=== PATIENT | female | born 1955 | race Caucasian/White ===

== ENCOUNTER 2021-11-09 11:01 | Outpatient (CLI) | payer OTHER, SELFPAY ==
--- NOTE | 2021-11-09 11:30 | CRLHL7_ITS ---
For Patients: As a result of the Century Cures Act, medical imaging exams and procedure reports are released immediately into your electronic medical record. You may view this report before your referring provider. If you have questions, please contact your health care provider. BILATERAL SCREENING MAMMOGRAM WITH COMPUTER-AIDED DETECTION AND TOMOSYNTHESIS CLINICAL HISTORY: Screening mammogram. TECHNIQUE: BILATERAL screening mammogram with tomosynthesis. Computer-aided detection was utilized. COMPARISON FILM: Mammograms 10/26/2020, 10/01/2019 and 07/22/2018. BREAST COMPOSITION: The breasts are heterogeneously dense, which may obscure small masses. FINDINGS: RIGHT breast: In the anterior RIGHT breast, there is a focal asymmetry at the 6-7 o???clock position approximately 1.5 cm from the nipple. No suspicious microcalcifications. No nipple retraction or skin thickening. LEFT breast: No mass, suspicious microcalcifications, architectural distortion or other evidence of malignancy. IMPRESSION: Focal asymmetry in the inferior retroareolar RIGHT breast at the 6-7 o???clock position approximately 1.5 cm from the nipple. Recommend ultrasound for further evaluation. ASSESSMENT: BI-RADS Category 0: Incomplete: Need Additional Imaging Evaluation and/or Prior Mammograms for Comparison [facility] will contact the patient for follow-up. A lay language report of this examination will be provided to the patient. Rahul Coker M.D. Diagnostic/Musculoskeletal Radiologist [email or web address] PT/Dictated by: Rahul Coker MD @ 11/10/2021 10:33:00 AM (Electronically Signed)
== END 2021-11-09 11:02 | disposition home or self-care (01) ==
PROVIDERS: PCP Internal Medicine; Visit Provider Internal Medicine
DX: Z12.31 Encounter for screening mammogram for malignant neoplasm of breast (principal); R92.8 Other abnormal and inconclusive findings on diagnostic imaging of breast; R92.2 Inconclusive mammogram
CPT/HCPCS: 77063; 77067

== ENCOUNTER 2021-11-15 08:58 | Outpatient (CLI) | payer OTHER, SELFPAY ==
--- NOTE | 2021-11-15 09:15 | CRLHL7_ITS ---
For Patients: As a result of the Century Cures Act, medical imaging exams and procedure reports are released immediately into your electronic medical record. You may view this report before your referring provider. If you have questions, please contact your health care provider. RIGHT BREAST ULTRASOUND, 11/15/2021 CLINICAL HISTORY: Right breast mass/asymmetry. COMPARISON: Mammogram exams 10/26/2020, 11/09/2021, 10/01/2019, 07/22/2018 and 04/06/2017. TECHNIQUE: Real-time ultrasound imaging of RIGHT breast with imaging documentation. FINDINGS: Targeted sonogram to the area of concern performed adjacent to the RIGHT nipple. Normal fibroglandular tissue is present with mild incidental multi duct ectasia. No suspicious findings. IMPRESSION: Normal breast tissue adjacent to the RIGHT nipple. No evidence of malignancy. RECOMMENDATIONS: Annual BILATERAL screening mammography. Results and recommendations were discussed with the patient at the time of the exam. BI-RADS: 2. Benign findings. Dictated by Brian Robert MD @ 11/15/2021 9:56:04 AM JR/Dictated by: Brian Robert MD @ 11/15/2021 9:56:00 AM (Electronically Signed)
== END 2021-11-15 08:59 | disposition home or self-care (01) ==
LOC: US 08:58
PROVIDERS: PCP Internal Medicine; Visit Provider Internal Medicine
DX: N63.10 Unspecified lump in the right breast, unspecified quadrant (principal); R92.8 Other abnormal and inconclusive findings on diagnostic imaging of breast
CPT/HCPCS: 76642

== ENCOUNTER 2022-02-21 14:19 | Outpatient (CLI) | payer OTHER, SELFPAY ==
[2022-02-21 17:33] LABS: Cholesterol* 196 mg/dL (90-199); Triglycerides* 129 mg/dL (40-149)
[2022-02-21 17:34] LABS: HDL Cholesterol* 68 mg/dL (>=50); LDL Cholesterol Calculated 102 mg/dL (<100)
== END 2022-02-21 14:20 | disposition home or self-care (01) ==
PROVIDERS: PCP Internal Medicine; Visit Provider Internal Medicine
DX: E03.8 Other specified hypothyroidism (principal); E78.5 Hyperlipidemia, unspecified; R05.9 Cough, unspecified
CPT/HCPCS: 80061; 84443

== ENCOUNTER 2022-06-21 12:51 | Outpatient (CLI) | payer MEDICARE, BC, SELFPAY ==
--- NOTE | 2022-06-21 13:00 | CRLHL7_ITS ---
For Patients: As a result of the Cures Act, medical imaging exams and procedure reports are released immediately into your electronic medical record. You may view this report before your referring provider. If you have questions, please contact your health care provider. EXAMINATION: MRA HEAD DATE: 06/21/2022. HISTORY: Patient with headaches and a family history of brain aneurysms. TECHNIQUE: 3D TOF MRA of the head was performed. COMPARISON: None. FINDINGS: The intracranial segments of the right internal carotid artery are normal. The anterior communicating artery is seen. The visualized portions of the right middle and anterior cerebral arteries are normal. The intracranial segments of the left internal carotid artery are normal. The visualized portions of the left middle and anterior cerebral arteries are normal. The right vertebral artery is dominant. The visualized intracranial portions of the vertebral arteries are normal. The basilar artery is normal. The right posterior cerebral artery is normal. The left posterior cerebral artery is normal. IMPRESSION: Normal MRA of the head without intracranial aneurysms. Ellis Mcdermott M.D. Neurointerventionalist [facility] Pager: Office/Appointments: Answering Service: [facility]: [email or web address] Dictated by: Ellis Mcdermott MD @ 06/21/2022 15:06:28 (Electronically Signed)
--- NOTE | 2022-06-21 14:00 | CRLHL7_ITS ---
For Patients: As a result of the Century Cures Act, medical imaging exams and procedure reports are released immediately into your electronic medical record. You may view this report before your referring provider. If you have questions, please contact your health care provider. DXA BONE MINERAL DENSITY STUDY Reason for exam: Asymptomatic age-related postmenopausal state. Current height (in): 63. Weight (lb): 125. Menopause age: 47. Ethnicity: White. 1. Have you had a previous hip or vertebral fracture? No. 2. Have you had any fractures during your adult life which did not result from significant trauma (e.g., auto accident)? No. 3. Did either of your parents have a hip fracture? No. 4. Do you smoke? No. 5. Have you ever taken Glucocorticoids? No. 6. Do you have rheumatoid arthritis? No. 7. Do you have secondary osteoporosis? No. 8. Do you drink 3 or more alcoholic drinks per day? No. 9. Are you being treated for osteoporosis? No. 10. Have you ever taken any of the following medications: Actonel, Evista, Fosamax, Miacalcin, Reclast, Boniva, Forteo, HRT (i.e., estrogen/hormone therapy), Protelos, Prolia, Vitamin D, Calcium, other ??? please specify. ANSWER: No. 11. Do you have any of the following medical conditions: Anorexia or bulimia, asthma or emphysema, end stage renal disease, hyperparathyroidism, any seizure disorders, cancer, inflammatory bowel diseases, hysterectomy, other ??? please specify. ANSWER: Yes, hysterectomy. 12. What was your maximum height (inches)? 63. 13. Do you perform weight bearing exercise regularly? Yes. 14. Do you regularly consume dairy products? No. 15. Do you drink caffeinated beverages? Yes. If female: 16. At what age did your period start? 17. 17. Are you premenopausal? Yes. 18. How many full-term pregnancies have you had? 2. 19. Have you ever missed your period for more than 6 months in a row (not including or menopause)? No. TECHNIQUE: Bone mineral density study was performed using the [employer]. FINDINGS: The results of the study expressed as bone mineral density (BMD) are as follows: Lumbar spine L1 to L4: BMD: 0.766 g/cm2. T-score: -2.6. Z-score: -0.8 Neck Left: BMD: 0.589 g/cm2. T-score: -2.3. Z-score: -0.8 Right: BMD: 0.640 g/cm2. T-score: -1.9. Z-score: -0.4 Total Left: BMD: 0.760 g/cm2. T-score: -1.5. Z-score: -0.3 Right: BMD: 0.786 g/cm2. T-score: -1.3. Z-score: 0.0 IMPRESSION: Osteoporosis. Brian Robert M.D. Diagnostic Radiologist [email or web address] LENA/steve wilson/Dictated by: Brian Robert MD @ 06/22/2022 1:47:00 PM (Electronically Signed)
== END 2022-06-21 12:52 | disposition home or self-care (01) ==
PROVIDERS: PCP Internal Medicine; Visit Provider Internal Medicine
DX: R51.9 Headache, unspecified (principal); Z82.49 Family history of ischemic heart disease and other diseases of the circulatory system; M81.0 Age-related osteoporosis without current pathological fracture; Z78.0 Asymptomatic menopausal state
CPT/HCPCS: 70544; 77080

== ENCOUNTER 2022-07-04 13:33 | Outpatient (CLI) | payer MEDICARE, BC, SELFPAY ==
--- NOTE | 2022-07-04 13:45 | MR_ITS ---
[address] [address] Phone:?[phone] Fax:?[phone] Referring Physician Information: Emperatriz Vera [address] [facility] [address] Phone:?[phone] Fax:?[phone] Patient:Taz Marlow D.O.B:?1955 Sex:?Female Phone:?[phone] [facility] MRN:?[id number] Exam Date:?07/04/2022 ? EXAM: MRI of the LEFT KNEE, without contrast CLINICAL HISTORY: Left knee pain. Evaluate for meniscal tear. COMPARISONS: Plain radiographs 06/20/2022. TECHNICAL: MR sequences of the left knee: sagittals: PD, PDFS coronals: PD, STIR axials: PD, T2 FS CONTRAST: None SEDATION: None FINDINGS: Bones: No fracture, bone marrow contusion, or other suspicious bone marrow signal abnormality. Patellofemoral joint: Cartilage: There is a 1.5 cm in craniocaudad dimension by 1.0 cm in transverse dimension area of grade III and IV chondromalacia over the median patellar ridge and medial patellar facet with mild associated degenerative subchondral cystic changes. Retinacula: The medial and lateral retinacula are intact. Fat pads: The infrapatellar, quadriceps, and prefemoral fat pads are unremarkable. Knee joint: Effusion: Trace left knee joint effusion. Popliteal cyst: Moderately sized perforated popliteal cyst. Intra-articular bodies: None. Posteromedial corner: The semimembranosus and pes anserine tendons are intact. Medial compartment: Medial meniscus: Full-thickness radial tear through the posterior root of the medial meniscus best seen on sagittal images 13 and 14 with 3 mm of medial meniscal extrusion. Cartilage: 1.0 x 1.0 cm area of grade II chondromalacia over the lateral weightbearing portion of the medial femoral condyle. Lateral compartment: Lateral meniscus: Slight free edge fraying of the body of the lateral meniscus. No unstable lateral meniscal tear is seen. Cartilage: Intact. Ligaments: Anterior cruciate ligament: Intact. Posterior cruciate ligament: Intact. Medial collateral ligament: Intact. Posterior oblique ligament: Intact. Fibular collateral ligament: Intact. Posterolateral corner: The distal biceps femoris tendon, iliotibial band, popliteus tendon, popliteus muscle, popliteofibular ligament, and arcuate ligament are intact. Extensor mechanism: Patellar tendon: Intact. Quadriceps tendon: Intact. IMPRESSION: 1. Full-thickness radial tear through the posterior root of the medial meniscus. 3 mm of medial meniscal extrusion. 2. 1.5 x 1.0 cm area of grade III and IV chondromalacia over the median patellar ridge and medial patellar facet with mild associated degenerative subchondral cystic changes. 3. 1.0 x 1.0 cm area of grade II chondromalacia over the lateral weightbearing portion of the medial femoral condyle. 4. Slight free edge fraying of the body of the lateral meniscus. No unstable lateral meniscal tear. 5. Trace left knee joint effusion. 6. Moderately sized perforated popliteal cyst. 7. No ligamentous injury of the left knee. RCB Electronically signed on 07/05/2022 6:34:00 AM by Ashvin Marrufo M.D.
== END 2022-07-04 13:34 | disposition home or self-care (01) ==
LOC: MRI 13:34
PROVIDERS: PCP Internal Medicine; Visit Provider Physician Assistant
DX: M25.562 Pain in left knee (principal); S83.242A Other tear of medial meniscus, current injury, left knee, initial encounter; M94.262 Chondromalacia, left knee; M25.462 Effusion, left knee; M71.22 Synovial cyst of popliteal space [Baker], left knee; M22.42 Chondromalacia patellae, left knee
CPT/HCPCS: 73721

== ENCOUNTER 2022-08-30 06:04 | Day surgery (SDC) | payer MEDICARE, BC, SELFPAY ==
[2022-08-30] VITALS (13 sets, daily range): BP systolic 103–153; BP diastolic 62–93; PULSE 49–66; RESP 12–16; TEMP 35.7–36.6; O2SAT 96–100; BMI 21.7
[2022-08-30] MEDS: LACTATED RINGERS 1000 ML 1,000 ML 100 ML IV (06:43)
[2022-08-30] MEDS: SODIUM CHLORIDE 0.9 % (FLUSH) 10 ML SYRINGE IVF (06:43)
[2022-08-30] MEDS: ROPIVACAINE 0.5% 30 ML 150 MG INJECTION (08:14)
--- NOTE | 2022-08-30 08:23 | PM.ORPRC ---
Procedure Note Date of procedure: 08/30/22 Procedure: PREOPERATIVE DIAGNOSIS: 1. Left knee medial meniscus posterior root tear POSTOPERATIVE DIAGNOSIS: 1. Left knee medial meniscus posterior root tear 2. 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 Left knee arthroscopic partial medial meniscectomy 2. Left knee arthroscopic chondroplasty medial and patellofemoral compartments SURGEON: Gunnar Walter M.D. WOODWORKING BELT SANDER: Kenroy GAITAN. Of note, an assistant distribution manager was critical for this case to aid in patient positioning, knee manipulation, instrument exchange, and closure. ANESTHESIA: Spinal EBL: 5ml TOURNIQUET: 30 min at 300 torr COMPLICATIONS: None evident INDICATIONS: The patient is a pleasant 67-year-old female who has experienced left knee pain particularly with any twisting or turning. Physical exam was concerning for medial meniscus tear, this was confirmed on MRI. Additionally, attempted nonoperative management has been tried, and failed. Thus, surgery was recommended. FINDINGS: Posterior root medial meniscus tear. Complex in pattern. Not a straightforward/radial tear. In addition, a complex tear did extend into the posterior root in even approaching the midbody. In this juncture had some horizontal component as well as poor tissue quality. Finally, grade 3 chondromalacia is seen weight-bearing portion medial femoral condyle broadly as well as the patella median ridge and lateral facet broadly. To lesser degree grade 2 trochlear groove. Healthy articular cartilage lateral compartment. Intact lateral meniscus. ACL and PCL intact. No loose bodies evident. DESCRIPTION OF PROCEDURE: After a thorough discussion of risks, benefits, and alternatives, the patient was brought to the operating room and placed upon the operating table. Induction of anesthesia was undertaken as previously noted. 1 g IV Ancef was administered within 1 hr of incision preoperatively. Appropriate time-out was performed identifying proper patient, site, and procedure. The left lower extremity was prepped and draped in the appropriate sterile fashion using ChloraPrep. The limb was exsanguinated and tourniquet inflated. Anterolateral and anteromedial portals were established with an 11 blade, and a diagnostic arthroscopy was performed. This identified the findings as noted above. Following the diagnostic arthroscopy, a partial medial menisectomy was performed with the combination of basket forceps and a motorized shaver. In addition, the shaver was utilized for chondroplasty of loose chondral flaps medial femoral condyle and patella. Following this, the meniscus was re-probed and found to be stable. Approximately 15-20 % of the overall meniscus required resection. At this stage, the shaver was reinserted into the suprapatellar pouch and all remaining meniscal debris was evacuated. Instruments were removed, excess fluid was drained, and closure performed with 4-0 Monocryl with Steri-Strips. Dressings were applied, the tourniquet deflated, and the patient was awoken from anesthesia and transferred to the PACU in stable condition. PLAN: 1. Weightbear as tolerated operative extremity. Crutch / walker ambulation assistance PRN. Straight leg raise to be initiated starting tomorrow by the patient. 2. Ice, acetominophen and/or ibuprofen, and oxycodone for pain as needed. 3. Knee range of motion and quad sets/straight leg raise regularly 4. Follow up with PA visit in 7-10 days. for a wound check. Initiate physical therapy at that time
--- NOTE | 2022-08-30 08:26 | W.ANESCHARGE ---
Anesthesia Charges Start Date/Time Anesthesia Start Date: 08/30/22 Anesthesia Start Time: 07:30 Stop Date/Time Anesthesia Stop Date: 08/30/22 Anesthesia Stop Time: 08:26
== END 2022-08-30 10:26 | disposition home or self-care (01) ==
LOC: OR 06:05
PROVIDERS: PCP Internal Medicine; Visit Provider Orthopaedic Surgery Sports Medicine
PROC: (CPT 29882; principal; 2022-08-30 07:30)
DX: M23.222 Derangement of posterior horn of medial meniscus due to old tear or injury, left knee (principal); M94.262 Chondromalacia, left knee
CPT/HCPCS: 29881; 01400; J1100; J2250; J2405; J2704; J2795; J3010; J7120; L1833

== ENCOUNTER 2022-10-16 09:30 | Outpatient (RCR) | payer MEDICARE, BC, SELFPAY ==
--- NOTE | 2022-09-01 10:08 | PT.OPEX ---
PT [facility] Outpatient Eval PT [facility] Outpatient Eval Start: 09/01/22 07:42 Freq: Status: Active Protocol: Document 09/01/22 07:42 YOU (Rec: 09/01/22 10:08 KLV [id number]) E-signed By Tresa Damon, PT Physical Therapy Outpatient Evaluation Insurance Information Recert Due Date 11/26/22 Insurance Name Medicare B,Blue Cross/[employer] Shield Medical Diagnosis S/P left knee scope: medial meniscectomy DOS: 08/30/22 Treating Diagnosis Left knee pain, limited knee ROM, gross LE weakness, antalgic gait Referring MD Walter Subjective Subjective Cydney reports to PT s/p 2 days left knee medial meniscectomy DOS 08/30/22. DOI 06/20/22: twisted on her knee while walking and felt and immediate sharp pain. Unable to bear weight originally. She was pretty limited with walking following which prompted surgery. She is a bit discouraged initially today since she underwent a meniscectomy vs a meniscus repair and feels that it will set her back with return to function since she is a very active person with walking, yoga, caring for 1 and 3 year old granddaughters. She presents with jose daniel bandage around knee and use of B crutches. Initially NWB today d/t fear and pain level at the worst today but manageable. Has been icing. 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 Advised to leave steri strips on until they fall off themselves, she may shower. Gait: use of B crutches, WBAT, slow alberto, good heel to toe, overpronation L LE, slight bowing of L LE Functional Test Performed & Score LEFS: 52/80 Assessment Assessment/Impression Pt presents with signs and symptoms consistent with s/p 2 days left knee medial meniscectomy. DOS: 6/21/23. Anticipated deficits/ impairments in pain, ROM, gait , and strength. 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 Primary Functional Limitations Walking, squatting, bending, lifting Plan of Care Rehabilitation Potential Good Physical Therapy Goals By 4 weeks (09/29/22) Pt will be able to ascend/ descend 1 flight of stairs in order to perform ADLs pain free. Pt will demonstrate full and pain free knee ROM in order to perform all ADLs including don/doffing shoes/socks By 8 weeks (10/27/22) Pt will exhibit 9 pt improvement in LEFS Outcome measure to demonstrate functional improvement and progress towards goals. Pt will tolerate gradual progression back to ADLs with <2/10 pain Patient will transition from crutches to independent gait with normal mechanics. 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 and care for grandchildren Treatment Plan/Direct Interventions Gait Training,Ice/Cold/ Vasopneumatic,Joint Mobilization,Manual Therapy, Neuromuscular Re-ed,Self-Care/ Home Management,Therapeutic Activities,Therapeutic Exercises Frequency/Duration 1x/wk for 6 weeks with additional 4 sessions prn based on progress Patient Will Be Discharged From Therapy Completion of LTG(s), Independent w/HEP, Independently Progressing Evaluation Billing Untimed Code Treatment Minutes 20 Complexity Low Certification Information Initial Certification Date 09/01/22 Ending Certification Date 11/26/22 Provider Signature Shows Agreement With POC & Medical Necessity Physician Signature & Date Requested Please Sign/Date Here Physician Comment/Change : Physician NPI Number #
== END 2022-10-16 11:39 | disposition home or self-care (01) ==
PROVIDERS: PCP Internal Medicine; Visit Provider Orthopaedic Surgery Sports Medicine
DX: S83.242D Other tear of medial meniscus, current injury, left knee, subsequent encounter (principal); Z51.89 Encounter for other specified aftercare
CPT/HCPCS: 97110; 97116; 97161

== ENCOUNTER 2022-11-15 08:53 | Outpatient (CLI) | payer MEDICARE, BC, SELFPAY ==
--- NOTE | 2022-11-15 09:15 | CRLHL7_ITS ---
For Patients: As a result of the Century Cures Act, medical imaging exams and procedure reports are released immediately into your electronic medical record. You may view this report before your referring provider. If you have questions, please contact your health care provider. BILATERAL SCREENING MAMMOGRAM WITH COMPUTER-AIDED DETECTION AND TOMOSYNTHESIS TECHNIQUE: CC and MLO views were obtained. These mammographic images have been obtained using full-field digital technique. These mammographic images were interpreted with the benefit of computer-aided detection. Breast Tomosynthesis was used in this interpretation. COMPARISON FILM: 11/09/21, 10/26/20, 10/01/19. FINDINGS: The breasts are heterogeneously dense, which may obscure small masses IMPRESSION: There is no radiographic evidence for malignancy. ASSESSMENT: BI-RADS Category 1: Negative RECOMMENDATION: Routine screening mammogram in 1 year. A lay language report of this examination will be provided to the patient. Brian Robert M.D. Diagnostic Radiologist [email or web address] JOHN/Dictated by: Brian Robert MD @ 11/15/2022 1:11:00 PM (Electronically Signed)
== END 2022-11-15 08:54 | disposition home or self-care (01) ==
LOC: MAMMO 08:55
PROVIDERS: PCP Internal Medicine; Visit Provider Internal Medicine
DX: Z12.31 Encounter for screening mammogram for malignant neoplasm of breast (principal); R92.2 Inconclusive mammogram
CPT/HCPCS: 77063; 77067

== ENCOUNTER 2023-02-22 07:46 | Outpatient (CLI) | payer MEDICARE, BC, SELFPAY | END 2023-02-22 07:47 | disposition home or self-care (01) | LOC: NFLDREF 02-23 14:44 | PROVIDERS: PCP Internal Medicine; Referring Provider Internal Medicine; Visit Provider Internal Medicine | DX: E78.5 Hyperlipidemia, unspecified (principal); E03.8 Other specified hypothyroidism | CPT/HCPCS: 80061; 84439; 84443 ==

== ENCOUNTER 2023-05-16 07:34 | Outpatient (CLI) | payer MEDICARE, BC, SELFPAY | END 2023-05-16 07:35 | disposition home or self-care (01) | LOC: NFLDREF 05-29 20:21 | PROVIDERS: PCP Internal Medicine; Referring Provider Internal Medicine; Visit Provider Internal Medicine | DX: E78.5 Hyperlipidemia, unspecified (principal) | CPT/HCPCS: 80061 ==

== ENCOUNTER 2023-06-18 10:39 | Outpatient (CLI) | payer MEDICARE, BC, SELFPAY ==
--- NOTE | 2023-06-18 10:45 | US_ITS ---
Patient: ZAID ROBERTS Facility:?[facility] Patient ID:?[id number] Site Patient ID:?[id number] Site :?1955 Study:?US-OB Pelvis TA/TV Pelvic US-06/18/2023 11:36:20 AM Ordering Physician:?Griselda Thomas Final Report: INDICATION: hx of genetic malignant neoplasm. BRCA gene carrier COMPARISON: CT 05/05/2013 TECHNIQUE: 2D bains scale and color Doppler images were acquired of the pelvis using a transabdominal and transvaginal approach. FINDINGS: The uterus is absent. The right ovary measures 1.2 x 0.7 x 0.6 cm in size and the left ovary measures 1.3 x 0.8 x 1.0 cm. The ovaries demonstrate normal arterial and venous blood flow on color Doppler analysis. There are no suspicious fluid collections within the cul-de-sac. IMPRESSION: Normal ovaries without suspicious finding. Dictated by Brian Robert MD @ 06/18/2023 11:42:37 AM Signed by:?Brian Robert MD @06/18/2023 11:42:37 AM (Electronic Signature)
--- OUTSIDE RECORDS SUMMARY | 2023-06-18 10:45 | XMS_ITS | Encounter Summary ---
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 No 05/08/2023 Exercise Vital Sign Answer Date Recorde d On average, how many days pe r week do you engage in moderate to strenuous exercise (like a brisk walk)? 4 days 05/08/2023 On average, how many minutes do you engage in exercise at this level? 40 min 05/08/2023 Hunger Vital Sign Answer Date Recorded Within the past 12 months, y ou worried that your food would run out before you got the money to buy more. Never true 05/08/19 Within the past 12 months, t he food you bought just didn't last and you didn't have money to get more. Never true 05/08/2023 PRAPARE - Transportation Answer Date Re corded In the past 12 months, has l ack of transportation kept you from medical appointments or from getting medications? No 04/13 In the past 12 months, has l ack of transportation kept you from meetings, work, or from getting things needed for daily living? No 05/08/2023 Nutrition Answer Date Recorded Nutrition: EVOO Fat Source Unknown 05/08 On average, how many serving s of fruits and vegetables do you eat per day (serving size is equal to 1 cup or approximately the size of a tennis ball)? 3-5 05/08/2023 Dental Answer Date Recorded Dental: Regular Dentist Yes 05/08/19 Employment Answer Date Recorded Employment status Employed and actively working without restrictions 05/08/2023 Housing Stability Answer Date Recorded What is your living situation today? 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
--- OUTSIDE RECORDS SUMMARY | 2023-06-18 10:45 | XMS_ITS ---
Author Name Unknown Organization [facility] Address [address] [place] [address] Care Team Providers Care Security Systems Integrator Name Role Phone Unavailable Unavailable Unavailable Surgery Details Not on file Complications Check Surgery Details section. Procedure Estimated Blood Loss Check Surgery Details section. Procedure Findings Check Surgery Details section. Procedure Specimens Taken Check Surgery Details section.
--- OUTSIDE RECORDS SUMMARY | 2023-06-18 10:45 | XMS_ITS | Encounter Summary ---
Author Name Unknown Organization [facility] Address [address] [place] [address] Care Team Providers Care Methods And Procedures Analyst Name Role Phone Unavailable Primary Care Provider Unavailabl e Encounter Details Date Type Department Care Team (Latest Contact Info) Description 05/14/2023 2:40 PM CATARACT LENS GENERATOR - 05/14/2023 11:59 PM CATARACT LENS GENERATOR Hospital Encounter Department of Laboratory Medicine and Pathology, [facility], in [place], [place] [address] [place] [address] Chilo Mario M.D. [address] [place] [address] Family History Genetic Disorder; Cancer Breast Family History Discharge Disposition: Home or Self Care Social History Tobacco Use Types Packs/Day Years Used Date Smoking Tobacco: Never Assessed [facility] Utilities Answer Date Recorded In the past 12 months has [facility] [employer], gas, oil, or water [employer] threatened to shut off services in your [...] money to buy more. Never true 05/08/19 24 Within the past 12 months, t he [...] your living situation today? I have a [facility] place to live 05/08/2023 Sex and Gender Information Value Date Recorded Sex Assigned at Female 05/08/2023 12:42 PM CATARACT LENS GENERATOR Gender Identity Female 05/08/2023 12:42 PM CATARACT LENS GENERATOR Sexual Orientation Straight 05/08/2023 12 :42 PM CATARACT LENS GENERATOR documented as of this encounter Miscellaneous Notes * Result Encounter Note - Radha Burgos M.S., [facility] - 06/15/2023 8:15 AM CDT CHIEF COMPLAINT/PURPOSE OF VISIT BRCA2 positive genetic testing results. HISTORY OF PRESENT ILLNESS Cydney Marlow was seen in the Department of Clinical Genomics on 05/11/2023 for genetic counselingand consideration of genetic testing due to a family history of a pathogenic variant in BRCA2. At that consultation, Cydney elected to pursue a CustomNext: Cancer panel with BRCA2 site specific analysis, available from [employer] This custom panel included genes associated with hereditary breast and gynecologic cancer. Genes included: RACHEL, BARD1, BRCA1, BRCA2, BRIP1, CDH1, CHEK2, EPCAM, MLH1, MSH2, MSH6, NF1, PALB2, PMS2, PTEN, RAD51C, RAD51D, STK11, TP53 Results are now available and were disclosed over video visit and also shared via online patient portal message. RESULTS Germline genetic testing included sequence analysis and gross deletion/duplication analysis of 19 genes associated with hereditary cancer. For a full list of genes included in the analysis, please refer to the laboratory report scanned into the patient's chart (Media tab). 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 A pathogenic variant is a harmful change in the gene's spelling, which disrupts its normal function. 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 Of note, this is the same BRCA2 variant previously identified for Cydney's niece. CANCER RISKS Note: the terms male/man and female/woman refer to sex assigned at . These are quoted risks for individuals with a BRCA2 variant who have not taken risk reduction steps, such as taking chemoprevention medications or undergoing risk-reducing surgeries. This informationis based on the current understanding of BRCA2 and may slip box changer time. The average risk to develop breast cancer for a woman living in the [place] is approximately 12-13% overher lifetime; women with a pathogenic variant in BRCA2 have over a 60% lifetime risk to develop a primary breast cancer and an approximately 40-50% risk to develop a second primary if they have previously had a breast cancer diagnosis. The average risk to develop breast cancer for a man living in the [place] is less than 1% over his lifetime; men with a pathogenic variant in BRCA2 have an approximately 1.8-7.1% lifetime risk to develop breast cancer. The average risk to develop ovarian cancer for a woman living in the [place] is approximately 1-2% over her lifetime; women with a pathogenic variant in BRCA2 have an approximately 13-29% lifetime risk todevelop ovarian cancer. The average risk to develop prostate cancer for a man living in the [place] is approximately 14% over his lifetime; men with a pathogenic variant in BRCA2 have an approximately 19-61% lifetime risk to develop prostate cancer. The average risk to develop pancreatic cancer for a man or a woman living in the [place] is approximately 1-2%; men and women with a pathogenic variant in BRCA2 have an approximately 5-10% lifetime risk to develop pancreatic cancer. Individuals with a pathogenic variant in BRCA2 also have an elevated risk for melanoma. The lifetime risk is currently unknown. MEDICAL MANAGEMENT There are medical management guidelines for individuals with a pathogenic variant in BRCA2. Specifically, the guidelines published by the National Comprehensive Cancer Network (NCCN v.3.2023). Cydney will be provided with a copy of these guidelines for reference. These guidelines are subject to slip box changer time. Patients are encouraged to contact our department periodically for updates. Relatives who are at 50% risk of carrying a familial BRCA2 variant should be screened as though they have the variant until proven otherwise by a negative genetic test result. All individuals should receive education regarding signs and symptoms of cancer(s). FEMALE BREAST CANCER RISK MANAGEMENT ??Breast awareness beginning at age 18; ??Clinical breast examination every 6-12 months beginning at age 25; ??Breast imaging: ??Annual breast MRI (or mammogram if MRI is unavailable) for individuals between the ages of 25-29 or individualized based on earliest age of onset in the family ??Annual mammogram (with consideration of tomosynthesis) and breast MRI for individuals between theages of 30-75 ??Management should be considered on an individual basis for individuals over the age of 75 ??For individuals with a BRCA pathogenic/likely pathogenic variant who are treated for breast cancer and have not had a bilateral mastectomy, screening with annual mammogram with consideration of tomosynthesis and breast MRI should continue as described above. ??Discuss option of risk-reducing mastectomy (RRM) ??Chemoprevention options for breast cancer risk reduction should be considered. OVARIAN/UTERINE CANCER RISK MANAGEMENT Risk reducing bilateral salpingo-oophorectomy (BSO) is recommended for women with a pathogenic variant in BRCA2. Because ovarian cancer onset in patients with a pathogenic variant in BRCA2 is an average of 8-10 years later than in patients with a BRCA1 variant, it is reasonable to delay surgery forthose with a BRCA2 variant until age 40-45 years UNLESS the ages at diagnosis of ovarian cancer in the family warrant earlier age for consideration of risk reducing surgery. Hormone replacement therapy (HRT) after risk reducing BSO is generally not contraindicated and should be discussed with premenopausal patients who do not have a personal history of breast cancer, as it can reduce the chances of detrimental bone, cardiovascular, psychosocial, neurologic, and sexual health. Decisions about HRT are deferred to a nut culler or HCP with expertise in menopause management. Patients who are premenopausal and not yet ready for oophorectomy can consider salpingectomy (removal of fallopian tubes) with delayed oophorectomy. Salpingectomy reduces the risk of ovarian cancer in the general population. Clinical trials of interval salpingectomy and delay oophorectomy are ongoing, and surgical choice study participation is encouraged if available. Completion oophorectomy is recommended per gene-specific guidelines. There may be a slightly increased risk of serous uterine cancer in women with BRCA2 pathogenic variants. Further evaluation of the risk is ongoing. Providers should discuss risks and benefits of concurrent hysterectomy at the time of risk reducing BSO. Those who do undergo hysterectomy are candidates for estrogen-only HRT, which is associated with a decreased risk of breast cancer compared with co mbined HRT. Transvaginal ultrasound and serum CA-125 are recommended for surgical planning for patients undergoing risk-reducing BSO or salpingectomy. For those patients who have not elected risk reducing bilateral salpingo-oophorectomy, ovarian cancer screening including transvaginal ultrasound and serum CA-125 may be considered at a clinician's discretion. However, this screening has not been shown to be sufficiently sensitive or specific as to support a positive recommendation by the National Comprehensive Cancer Network. Patients can also consider non-surgical risk reduction for ovarian/fallopian tube/peritoneal cancers. Non-surgical options include consideration of combination estrogen/progestin contraception or levonorgestrel intrauterine device. Consultation with a gynecologic oncologist or nut culler with expe rtise in genetic susceptibility to cancer is recommended to discuss options. If desired, premenopausal women should be referred to fertility specialists for a discussion of fertility considerations. If eggs/embryos are cryopreserved, may be achieved with uterus in place, with or without fallopian tubes or ovaries. MALE BREAST CANCER RISK MANAGEMENT ??Breast self-exam training and education beginning at age 35; ??Clinical breast examination every 12 months, beginning at age 35 ??Consider annual mammogram screening starting at age 50, or 10 years before the earliest known male breast cancer in the family (whichever comes first) PROSTATE CANCER RISK MANAGEMENT ??Prostate cancer screening beginning at age 40 ??Men with a pathogenic variant in BRCA1 between the ages of 30-75 are eligible for a study at the National Institutes of Health, looking at use of MRI for prostate cancer screening:https://clinicalst udies.info.nih.gov/protocoldetails.aspx?id=19-C-0040&&query= PANCREATIC CANCER RISK MANAGEMENT There are currently no standardized screening protocols or screening tools for pancreatic cancer. Investigational options may be considered in select individuals at increased risk for pancreatic cancer. Options such as endoscopic ultrasonography (EUS) and/or MRI/magnetic resonance cholangiopancreatography are available. However, these screening protocols have significant limitations, and the benefits are currently are unknown. Current guidelines from the International Cancer of the Pancreas Screening Consortium (CAPS) state that an individual with a pathogenic variant in BRCA2 and a first-degree blood relative with pancreatic cancer is eligible for consideration of screening. CAPS suggests that surveillance should start between the ages of 45-50 or 10 years earlier than the youngest diagnosis of pancreatic cancer in the family. Similarly, the National Comprehensive Cancer Network (NCCN) states an individual with a BRCA2 pathogenic variant and a first-degree or second-degree relative with pancreatic cancer from the same side of the family as the germline pathogenic BRCA2 variant qualify for pancreatic cancer screening. Based on their family history of pancreatic cancer, Cydney is at an elevated empiric lifetime risk for pancreatic cancer. There are currently no standardized screening protocols or screening tools forpancreatic cancer. Investigational options may be considered in select individuals at increased risk for pancreatic cancer. Options such as endoscopic ultrasonography (EUS) and/or MRI/magnetic resonance cholangiopancreatography are available. However, these screening have significant limitations and the benefits are currently are unknown. Cydney does not meet CAPS nor NCCN criteria for pancreas cancer screening. Cydney should be aware of potential symptoms of pancreatic cancer (bloating, abdominal pain, jaundice) and could consider a consultation in the pancreatic neoplasia clinic for more information on ongoing research on pancreaticcancer screening and available research registries. In the absence of a strong family history, screening is unlikely to be recommended. MELANOMA RISK MANAGEMENT No specific screening guidelines exist for melanoma, but general melanoma risk management is appropriate. According to the French Cancer Society, individuals with a family history of melanoma are encouraged to: (1) have clinical skin examinations performed by a quality control specialist every 6-12 months, (2) perform thorough skin self-examinations once a month, and (3) be vigilant about sun protection (e.g. regularly wear sunscreen and avoid the use of tanning beds). These recommendations are based on published guidelines. These guidelines are subject to change andwe encourage patients to contact our department periodically for updates. Final recommendations should be deferred to the discretion of the managing physician. Other cancer screening recommendations, such as those made by the French Cancer Society, do remain appropriate. HEREDITARY CANCER CLINIC ([facility]) We discussed the option of being seen by a nurse practitioner or physician in the Department of Clinical Genomics' Hereditary Cancer Clinic for medical management of BRCA2 cancer risks. The [facility] is dedicated to providing care and support to patients with hereditary risk of developing certain types of cancers. At the [facility], a variety of services are offered, including an annual visit addressing screening recommendations for the patient's specific needs and referral to specialties. Patients can be seen in person in [place] or via video visit. Similarly, screening/surveillance can take place in [place] or can be completed in a local health system. To be seen this clinic, patients can call [facility] at [phone] to discuss a referral. REPRODUCTIVE RISKS Preconception genetic counseling is an option for individuals with a pathogenic variant in BRCA2 who are of reproductive age. The BRCA2 gene is associated with an autosomal recessive condition called Fanconi anemia. In order for someone to be affected by an autosomal recessive condition, they must have pathogenic variants in both copies of the gene (one inherited from both parents). Cydney was identified to have a pathogenic variant in one of their BRCA2 gene copies; therefore, Cydney is not at risk to be affected by BRCA2-associated Fanconi anemia and is considered a carrier for the condition. Individuals with a pathogenic variant in BRCA2 are at risk of having a child with Fanconi anemia if the individual's reproductive partner also has a pathogenic variant in this gene. Fanconi anemia is characterized by bone marrow failure and anomalies including short stature, abnormal skin pigmentation, abnormal thumbs, malformations of the skeletal and central nervous systems, and developmental delay. Risks for leukemia and early-onset solid tumors are significantly elevated. Carrier testing can be considered for the reproductive partner of an individual with a pathogenic variant in BRCA2 to determine the likelihood for the couple to have a future child with Fanconi Anemia. Preimplantation genetic diagnosis in the setting of in vitro fertilization is an option for coupleswho would like to avoid passing on a pathogenic variant in BRCA2 to future children. Interested couples should request a referral to an in vitro fertilization center that performs preimplantation genetic diagnosis for a thorough discussion of the risks, benefits, and limitations of this option. HEREDITARY CANCER CLINIC ([facility]) We discussed the option of being seen by a nurse practitioner or physician in the Department of Clinical Genomics' Hereditary Cancer Clinic for medical management of BRCA2 cancer risks. The [facility] is dedicated to providing care and support to patients with hereditary risk of developing certain types of cancers. At the [facility], a variety of services are offered, including an annual visit addressing screening recommendations for the patient's specific needs and referral to specialties. Patients can be seen in person in [place] or via video visit. Similarly, screening/surveillance can take place in [place] or can be completed in a local health system. To be seen this clinic, patients can call [facility] at [phone] to discuss a referral. REPRODUCTIVE RISKS Preconception genetic counseling is an option for individuals with a pathogenic variant in BRCA2 who are of reproductive age. The BRCA2 gene is associated with an autosomal recessive condition called Fanconi anemia. In order for someone to be affected by an autosomal recessive condition, they must have pathogenic variants in both copies of the gene (one inherited from both parents). Cydney was identified to have a pathogenic variant in one of their BRCA2 gene copies; therefore, Cydney is not at risk to be affected by BRCA2-associated Fanconi anemia and is considered a carrier for the condition. Individuals with a pathogenic variant in BRCA2 are at risk of having a child with Fanconi anemia if the individual's reproductive partner also has a pathogenic variant in this gene. Fanconi anemia is characterized by bone marrow failure and anomalies including short stature, abnormal skin pigmentation, abnormal thumbs, malformations of the skeletal and central nervous systems, and developmental delay. Risks for leukemia and early-onset solid tumors are significantly elevated. Carrier testing can be considered for the reproductive partner of an individual with a pathogenic variant in BRCA2 to determine the likelihood for the couple to have a future child with Fanconi Anemia. Preimplantation genetic diagnosis in the setting of in vitro fertilization is an option for coupleswho would like to avoid passing on a pathogenic variant in BRCA2 to future children. Interested couples should request a referral to an in vitro fertilization center that performs preimplantation genetic diagnosis for a thorough discussion of the risks, benefits, and limitations of this option. IMPLICATIONS FOR FAMILY MEMBERS First-degree relatives, including parents, siblings, and children, of an individual with a pathogenic variant in BRCA2 have a 50% chance of carrying the familial variant. Both men and women are equally likely to carry a pathogenic variant. More distant relatives, such as aunts, uncles, cousins, and grandparents, may also be at risk. Those who do not carry the familial variant cannot pass it on totheir children. Genetic counseling is recommended for the patient's family members, and genetic testing is available to determine if they carry the familial BRCA2 pathogenic variant. We encourage patients to share their genetic test report, as well as the information within this documentation, withtheir family members. We will also provide a family letter in this regard. To find a genetic counselor in their area, family members can visit: [email or web address]. RESOURCES The organization [employer] (Facing Our Risk for Cancer [employer]) has the mission of improving the lives of individuals and families affected by hereditary breast and ovarian cancer. The website for thisorganization is: [email or web address]. PLAN No referrals placed today. Cydney is encouraged to reach back out if she would like a referral to our Hereditary Cancer Clinic, the Breast Clinic, or the Department of Gynecology. We will mail the patient: (1) a copy of this note, (2) the genetic test report, (3) relevant BRCA2 NCCN guidelines, (4) a family letter, and (5) a Hereditary Cancer Clinic flyer. It was a pleasure to meet Cydney. The family is certainly welcome to contact me with any additional questions. We encourage patients to contact our department periodically for updates. PATIENT EDUCATION: All of the above was explained in detail with the patient who verbalized understanding. There were no apparent barriers to learning and understanding. The patient's questions were answered. documented in this encounter Plan of Treatment Not on file documented as of this encounter Procedures Procedure Name Priority Date/Time Associated Diagnosis Comments [facility] Routine 05/29/2023 1 2:11 PM CDT MISCELLANEOUS SENT OUT LAB TEST Routine 05/29/2023 12:11 PM CDT Family History Genetic Disorder Cancer Breast Family History documented in this encounter Results * [facility] (05/29/2023 12:11 PM CDT) Test Name Custom Panel 06/08/2023 12:12 PM CDT [facility] Result SEE COMMENT 06/08/2023 12:19 PM CDT [facility] Comment: For final report, select Lab-Send Out Lab Results hyperlink below. 05/29/2023 12:1 1 PM CDT 06/08/2023 12:11 PM CDT Chilo Mario M.D. LAB MISC ORDERABLE S [facility] [address] [place] [address], [facility] [address] [place] [address] * [id number] [facility] Custom Panel - Miscellaneous Test (05/29/2023 12:11 PM CDT) Test Name Custom Panel 06/08/2023 12:12 PM CDT HLS Saliva (Mouth) 05/29/2023 12 :11 PM CDT 06/08/2023 12:11 PM CDT Chilo Mario M.D. LAB MISC ORDERABLE S [facility] [address] [place] [address], [facility] HLS [facility] [address] [place] [address] documented in this encounter Visit Diagnoses Diagnosis Family History Genetic Disorder Cancer Breast Family History documented in this encounter
--- OUTSIDE RECORDS SUMMARY | 2023-06-18 10:45 | XMS_ITS | Encounter Summary ---
Author Name Unknown Organization [facility] Address [address] [place] [address] Care Team Providers Care Longwall Headgate Operator Name Role Phone Unavailable Primary Care Provider Unavailabl e Encounter Details Date Type Department Care Team (Late st Contact Info) Description 06/15/2023 Clinical Communication Department of Medical Genetics in [place], [place] [address] [place] [address] Radha Burgos M.S., [facility] [address] [place] [address] Social History Tobacco Use Types Packs/Day Years Used Date Smoking Tobacco: Never Assessed [facility] Utilities Answer Date Recorded In [...] your living situation today? [facility] 05/08/2023 Sex and Gender Information Value Date Recorded Sex Assigned at Female 05/08/2023 12:42 PM CIVIL DESIGN TECHNICIAN Gender Identity Female 05/08/2023 12:42 PM CIVIL DESIGN TECHNICIAN Sexual Orientation Straight 05/08/2023 12 :42 PM CIVIL DESIGN TECHNICIAN documented as of this encounter Plan of Treatment Not on file documented as of this encounter Visit Diagnoses Not on filedocumented in this encounter
--- OUTSIDE RECORDS SUMMARY | 2023-06-18 10:45 | XMS_ITS | Encounter Summary ---
Author Name Unknown Organization [facility] Address [address] [place] [address] Care Team Providers Care Director Learning Services Name Role Phone Unavailable Primary Care Provider Unavailabl e Reason for Visit * Reason Onset Date Comments Ambry:MTP 05/14/2023 Encounter Details Date Type Department Care Team (Late st Contact Info) Description 05/14/2023 Clinical Communication Department of Medical Genetics in [place], [place] [address] [place] [address] Radha Burgos M.S., [facility] [address] [place] [address] Ambry:[facility] Social History Tobacco Use Types Packs/Day Years Used Date Smoking Tobacco: Never Assessed [facility] Utilities Answer Date Recorded In the past 12 months has [facility] electric, gas, oil, or water company threatened [...] your living situation today? I have a [facility] place to live 05/08/2023 Sex and Gender Information Value Date Recorded Sex Assigned at Female 05/08/2023 12:42 PM QUOTATION CLERK Gender Identity Female 05/08/2023 12:42 PM QUOTATION CLERK Sexual Orientation Straight 05/08/2023 12 :42 PM QUOTATION CLERK documented as of this encounter Miscellaneous Notes * Telephone Encounter - Lisa Vaughan - 05/14/2023 2:40 PM CST Date: 05/14/23 Lab: [facility] Test: non-RNA Sample: Lab to mail a kit to the pt and Mail Order has been scheduled and checked in. Provider: Radha Burgos CGC Insurance: Government ATION CLERK documented in this encounter Plan of Treatment Not on file documented as of this encounter Visit Diagnoses Not on filedocumented in this encounter
--- OUTSIDE RECORDS SUMMARY | 2023-06-18 10:45 | XMS_ITS | Clinical Summary ---
Author Name Unknown Organization [facility] Address [address] [place] [address] Care Team Providers Care Web User Experience Strategist Name Role Phone Unavailable Primary Care Provider Unavailabl e Source Comments Patient records contain information from all sites at [facility]. For routine questions regarding patient records, call [phone] during business hours, M-F 8:00 AM - 5:00 PM Central Time. Record requests for emergency care only can be directed to [phone] at any time.[facility] Active Problems Problem Noted Date Diagnosed Date BRCA2 Gene Mutation Positive 06/15/2023 Overview: Germline genetic testing in 2023; 19-gene custom panel from [facility]. One heterozygous pathogenic variant found in the BRCA2 gene, specifically named [id number] ([id number]). Encounters Date Type Department Care Team Description 06/15/2023 Clinical Communication Department of Medical Genetics in [place], [place] [address] [place] [address] Rdaha Burgos M.SLuis, [facility] 06/14/2023 3:00 PM CDT Telemedicine Department of Medical Genetics in [place], [place] [address] [place] [address] Chilo Mario M.D. [place]st, Madaline T, M.S., CGC Genetic Susceptibility To Disease 06/11/2023 Orders Only Department of Medical Genetics in [place], [place] [address] [place] [address] Radha Burgos, M.S., [facility] Genetic Susceptibility To Disease (Primary Dx) 05/14/2023 2:40 PM POULTRY SCIENTIST - 05/14/2023 11:59 PM POULTRY SCIENTIST Hospital Encounter Department of Laboratory Medicine and Pathology, [facility], in [place], [place] [address] [place] [address] Chilo Mario M.D. Family History Genetic Disorder; Cancer Breast Family History Discharge Disposition: Home or Self Care 05/14/2023 Clinical Communication Department of Medical Genetics in [place], [place] [address] [place] [address] Radha Burgos M.S., BAL[facility] Ambry:MTP 05/11/2023 2:15 PM POULTRY SCIENTIST Telemedicine Department of Medical Genetics in [place], [place] [address] [place] [address] Radha Burgos M.S., BAL[facility] Family History Genetic Disorder (Primary Dx); Cancer Breast Family History from Last 3 Months Family History Medical History Relation Name Comments BRCA2 Positive Brother 1 assumed. daug hter's mom tested negative Prostate cancer Brother 1 Prostate cancer Brother 2 Diabetes type I Daughter 1 Prostate cancer Father Srniivas Skin cancer Father Srinivas non-melanoma Prostate cancer Father's Brother Akash Breast cancer Father's Sister 1 Paola Skin cancer Father's Sister 1 Paola Breast cancer Maternal Cousin 1 Breast cancer Maternal Cousin 2 Polio Maternal Grandfather Breast cancer Maternal Grandmother Bernice Uterine fibroid Mother Breast cancer Mother's Sister 1 Sita Melanoma Mother's Sister 2 Rosi BRCA2 Positive Niece no cancer; ma germaine grandmother: breast cancer; mother: no genetic testing, risk reducing bilateral mastectomy Pancreatic cancer Paternal Cousin Prostate cancer Paternal Grandfather [place] Ovarian cancer Paternal Grandmother Liana Uterine fibroid Sister Nyla Relation Name Status Comments Brother 1 Alive Brother 2 Alive Daughter 1 Alive Daughter 2 Alive Father Srinivas (Age 78) d. 2010 Father's Brother Akash Alive Father's Sister 1 Paola (Age 65) Father's Sister 2 Alive Father's Sister 3 Alive Father's Sister 4 (Age 90) Granddaughter 1 Alive Granddaughter 2 Alive Maternal Cousin 1 Alive Maternal Cousin 2 Alive Maternal Grandfather (Age 81) Maternal Grandmother Bernice (Age 93) Mother Alive Mother's Brother 1 Mother's Brother 2 Mother's Sister 1 Sita (Age 80) Mother's Sister 2 Rosi Mother's Sister 3 Alive Nephew Alive Niece Alive Paternal Cousin (Age 40s) Paternal Grandfather Damien (Age 92) Paternal Grandmother Liana (Age 80s) Sister Nyla Alive Social History Tobacco Use Types Packs/Day Years Used Date Smoking Tobacco: Never Assessed [facility] Utilities Answer Date Recorded In the past 12 months has th e [employer], gas, oil, or water [employer] threatened to shut off services in your [...] your living situation today? I have a [facility] place to live 05/08/2023 Sex and Gender Information Value Date Recorded Sex Assigned at Female 05/08/2023 12:42 PM POULTRY SCIENTIST Gender Identity Female 05/08/2023 12:42 PM POULTRY SCIENTIST Sexual Orientation Straight 05/08/2023 12 :42 PM POULTRY SCIENTIST Plan of Treatment Health Maintenance Due Date Last Done Comments Bone Density Scan (Osteoporo sis Screen) 1957 CT Colonography 1957 Cologuard 1957 Colonoscopy 1957 Colorectal Cancer Screening 1957 FIT 1957 Fasting Glucose for Diabetes Screening 1957 Hepatitis C Screening 1957 Mammogram 1957 Pneumococcal vaccine (65+ ye ars) (1 of 1 - PCV) 2022 Depression Screening (Annual PHQ-2) 03/12/2023 Fall Risk Screen (Annual) 03/12/2023 DTaP,Tdap,and Td Vaccines (3 - Td or Tdap) 11/21/2032 11/21/2022, 04/03/2012 Zoster Vaccines Completed 02/20/2019, 12/02/2018 Influenza Vaccine Completed 11/21/2022, , 11/10/2020, Additional history exists COVID-19 Vaccine Completed 12/08/2022, , 07/20/2021, Additional history exists Procedures Procedure Name Priority Date/Time Associated Diagnosis Comments [facility] Diversion GENETICS Routine 05/29/2023 1 2:11 PM CDT MISCELLANEOUS SENT OUT LAB TEST Routine 05/29/2023 12:11 PM CDT Family History Genetic Disorder Cancer Breast Family History from Last 3 Months Results * [facility] (05/29/2023 12:11 PM CDT) Test Name Custom Panel 06/08/2023 12:12 PM CDT AMBR Result SEE COMMENT 06/08/2023 12:19 PM CDT AMBR Comment: For final report, select Lab-Send Out Lab Results hyperlink below. 05/29/2023 12:1 1 PM CDT 06/08/2023 12:11 PM CDT Chilo Mario M.D. LAB MISC ORDERABLE S [facility] [address] [place] [address], [place] [facility] [address] [place] [address] * [id number] [facility] Custom Panel - Miscellaneous Test (05/29/2023 12:11 PM CDT) Test Name Custom Panel 06/08/2023 12:12 PM CDT HLS Saliva (Mouth) 05/29/2023 12 :11 PM CDT 06/08/2023 12:11 PM CDT Chilo Mario M.D. LAB MISC ORDERABLE S [facility] [place] [address] [place] [address], [facility] HLS [facility] [address] [place] [address] [address] Last [address] Cavazos, [place] [address]
--- OUTSIDE RECORDS SUMMARY | 2023-06-18 10:45 | XMS_ITS | Encounter Summary ---
Author Name Unknown Organization [facility] Address [address] [place] [address] Care Team Providers Care Ballroom Dance Instructor Name Role Phone Unavailable Primary Care Provider Unavailabl e Reason for Visit * Appointment Request (Routine) - Closed Specialty Diagnoses / Procedures Referred By Alicja leal Referred To Contact Clinical Genomics Diagnoses Family History Genetic Disorder Referral ID Status Reason Start Date Expiration Date Visits Re quested Visits Authorized [id number] Closed 04/13/2023 04/12/2024 1 1 Encounter Details Date Type Department Care Team (Late st Contact Info) Description 05/11/2023 2:15 PM CARE SUPPORT REPRESENTATIVE Telemedicine Department of Medical Genetics in [place], [place] [address] [place] [phone] Radha Burgos M.S., [facility] [address] [place] [phone] Family History Genetic Disorder (Primary Dx); Cancer Breast Family History Social History Tobacco Use Types Packs/Day Years Used Date Smoking Tobacco: Never Assessed [facility] Utilities Answer Date Recorded In the past 12 months has [employer], gas, oil, or water [employer] threatened to shut off services in your [...] your living situation today? I have a [facility] place to live 05/08/2023 Sex and Gender Information Value Date Recorded Sex Assigned at Female 05/08/2023 12:42 PM CARE SUPPORT REPRESENTATIVE Gender Identity Female 05/08/2023 12:42 PM CARE SUPPORT REPRESENTATIVE Sexual Orientation Straight 05/08/2023 12 :42 PM CARE SUPPORT REPRESENTATIVE documented as of this encounter Consult Notes * Radha Burgos M.S., [facility] - 05/11/2023 2:15 PM CST Images from the original note were not included. REFERRING PROVIDER No ref. provider found CHIEF COMPLAINT Family history of a pathogenic variant in BRCA2 HISTORY OF PRESENT ILLNESS Cydney Marlow is a 67 y.o. female referred by No ref. provider found for genetic counseling and consideration of genetic testing due to a family history of a pathogenic variant in BRCA2. The patient has no personal history of cancer. The patient had bilateral salpingo-oophorectomy withhysterectomy in 2000. The patient???s niece (brother's daughter) was identified to carry a pathogenic variant in BRCA2. The specific familial BRCA2 variant is named: [id number]>A ([id number]). The family history is also significant for the following cancer types: breast cancer, ovarian cancer, pancreatic cancer, prostate cancer, skin cancer including melanoma, and benign uterine fibroids. Cydney attended today???s consultation unaccompanied. Consult conducted via real- time audio/video technology by Radha Burgos M.S., [facility] in [facility] to the patient in Patient's Home. FAMILY HISTORY A detailed family history was obtained from the patient and a pedigree was constructed. The pedigree will be saved as a scanned document and available for viewing under the Media tab of [employer]. Our risk assessment is based upon medical and family history information as provided by the patient, and may change in the future should new information be obtained. Pedigree 05/11/2023 Relevant History: Immediate Family: -Brother: no genetic testing, assumed obligate BRCA2 carrier, prostate cancer dx 50s, currently age66 -Niece (brother's daughter): BRCA2 positive, no cancer, mother may have had negative genetic testing -Brother: prostate cancer dx 50s, currently age 55 -Sister: uterine fibroid, no genetic testing, age 68 Maternal Family: -Mother: no genetic testing, uterine fibroid, no cancer, currently age 80 -Two cousins: breast cancer dx 40s (these two are cousins to each other, not siblings) -Aunt: breast cancer dx 50s, age 80 -Aunt: melanoma skin cancer dx 70s, -Grandmother: breast cancer dx 70-80s, age 93 Paternal Family: -Father: prostate cancer dx 71, non-melanoma skin cancer, no genetic testing, age 78 -Aunt: breast cancer dx 30s, skin cancer, age 65 -Uncle: prostate cancer dx 70s, currently age 81 -Cousin (son of unaffected aunt d. 90): pancreatic cancer dx 40s, in 40s -Grandfather: prostate cancer dx unknown age, age 92 -Grandmother: ovarian cancer dx 70-80s, in 80s There is no reported consanguinity. IMPRESSION/REPORT/PLAN PATIENT EDUCATION Note: the terms male/man and female/woman refer to sex assigned at . Cancer is a relatively common diagnosis in the general population, and the majority of these cancers are not caused by inherited factors. We discussed different observable cancer patterns within families, including sporadic, familial/multifactorial and hereditary. Hereditary cancers are caused by mu tations within a single cancer susceptibility gene. Families with hereditary cancers tend to have the following features: specific types of cancer in multiple close relatives and in several consecutive generations, early age at diagnosis (under 50), multiple primary or bilateral tumors, and a lack of environmental or other known risk factors. HBOC is caused by a mutation within the BRCA1 or BRCA2 genes. Women with an inherited BRCA2 gene mutation have a >60% lifetime risk of developing a primary breast cancer in addition to an increased risk for a second primary breast malignancy. With a mutation in BRCA2, there is also an elevated lifetime risk for ovarian cancer, approximately 13-29%. Men who carry a mutation have an increased risk of developing breast, approximately 1.8-7.1%, and prostate cancer, 19-61%. Additionally BRCA2 carriers have increased risks of pancreatic cancer (up to 5-10%) and melanoma. The patient???s niece (brother's daughter) is known to have hereditary breast and ovarian cancer syndrome (HBOC) due to the presence of a BRCA2 gene mutation. The patient understands that they are at25% risk of having a known familial BRCA2 gene mutation, and therefore HBOC, based on their relation to the affected individual. Testing for the familial BRCA2 gene mutation was offered to the patient. We discussed the possible implications of a positive test result including screening recommendations from the National Comprehensive Cancer Network (NCCN). If the patient is found to carry the familial mutation, we will discuss the plan for their future management, and the plan for testing other relatives. We also discussed the implications of a negative test result. If the patient is not found to carry the familial mutation, they would be at the general population risk for the development of HBOC-associated cancers. General population screening recommendations would still apply to the patient. PLAN At the end of the visit, the patient elected to pursue a CustomNext: Cancer panel with BRCA2 site specific analysis, available from [facility]. This custom kit will include genes associated with hereditary breast and gynecologic cancer. Genes included: RACHEL, BARD1, BRCA1, BRCA2, BRIP1, CDH1, CHEK2, EPCAM, MLH1, MSH2, MSH6, NF1, PALB2, PMS2, PTEN, RAD51C, RAD51D, STK11, TP53 Cydney will testing be completed off a saliva kit, be sent to the patient by the laboratory. The laboratory will billed the patient's insurance directly and will contact the patient if the out of pocket cost is greater than $100. Laws governing genetic discrimination were discussed. Risks, benefits,and limitations of genetic testing were discussed. All results will first be shared with the patient via the patient online portal. If results are negative or a variant of uncertain significance is identified, the patient will be contacted with results via the patient portal by our genetic counseling assistants. If a pathogenic variant is identified, the patient will first be notified of the result via the portal by a genetic counselor and then a follow-up phone call will be scheduled to review the results in more detail. If results are complex, the patient will be offered an in-person or video return visit. Screening recommendations will be made for the patient and family members at the time of results disclosure by a genetic counselor. It was a pleasure to meet Cydney. The patient is certainly welcome to contact us with any additionalquestions. PATIENT EDUCATION: All of the above was discussed in detail with the patient who verbalized understanding. The patient's questions were answered. Total time: 18 minutes SUPPORT REPRESENTATIVE documented in this encounter Plan of Treatment Not on file documented as of this encounter Results * [id number] [facility] - Miscellaneous Test (05/29/2023 12:11 PM CDT) Test Name Custom Panel 06/08/2023 12:12 PM CDT HLS Saliva (Mouth) 05/29/2023 12 :11 PM CDT 06/08/2023 12:11 PM CDT Chilo Mario M.D. LAB MISC ORDERABLE S [facility] [address] [place] [address], [facility] HLS [facility] [address] [place] [address] documented in this encounter Visit Diagnoses Diagnosis Family History Genetic Disorder- Primary Cancer Breast Family History documented in this encounter
--- OUTSIDE RECORDS SUMMARY | 2023-06-18 10:45 | XMS_ITS | Encounter Summary ---
Author Name Unknown Organization [facility] Address [address] [place] [address] Care Team Providers Care Manager Center Name Role Phone Unavailable Primary Care Provider Unavailabl e Reason for Visit * Outpatient (Routine) - Closed Specialty Diagnoses / Procedures Referred By Alicja leal Referred To Contact Video Medicine Diagnoses Genetic Susceptibility To Disease Chilo Mario M.D. [address] [place] [phone] [facility] Referral ID Status Reason Start Date Expiration Date Visits Re quested Visits Authorized [id number] Closed 06/11/2023 12/10/2024 1 1 Encounter Details Date Type Department Care Team (Late st Contact Info) Description 06/14/2023 3:00 PM CDT Telemedicine Department of Medical Genetics in [place], [place] [address] [place] [phone] Chilo Mario M.D. [address] [place] [phone] Radha Burgos M.S., [facility] [address] [place] [phone] Genetic Susceptibility To Disease Social History Tobacco Use Types Packs/Day Years Used Date Smoking Tobacco: Never Assessed [facility] Utilities Answer Date Recorded In the [...] your living situation today? [facility] place to live 05/08/2023 Sex and Gender Information Value Date Recorded Sex Assigned at Female 05/08/2023 12:42 PM SUPERVISOR SPRING UP Gender Identity Female 05/08/2023 12:42 PM SUPERVISOR SPRING UP Sexual Orientation Straight 05/08/2023 12 :42 PM SUPERVISOR SPRING UP documented as of this encounter Progress Notes * Radha Burgos M.S., [facility] - 06/14/2023 3:00 PM CDT Images from the original note were not included. CHIEF COMPLAINT/PURPOSE OF VISIT BRCA2 positive genetic testing results. HISTORY OF PRESENT ILLNESS Cydney Marlow was seen in the Department of Clinical Genomics on 05/11/2023 for genetic counselingand consideration of genetic testing due to a family history of a pathogenic variant in BRCA2. At that consultation, Cydney elected to pursue a CustomNext: Cancer panel with BRCA2 site specific analysis, available from [employer]. This custom panel included genes associated with [...] variant in the BRCA2 gene, specifically named p.[id number] (c.9004G>A). A pathogenic variant is a harmful [...] the current understanding of BRCA2 and may change coordinator time. The average risk to develop breast [...] for reference. These guidelines are subject to change coordinator time. Patients are encouraged to contact our department periodically for updates. Relatives who are at 50% risk of carrying a familial BRCA2 variant should be screened as though they have the variant until proven otherwise by a negative genetic test result. All individuals should receive education regarding signs and symptoms of cancer(s). FEMALE BREAST CANCER RISK MANAGEMENT Breast awareness beginning at age 18; Clinical breast examination every 6-12 months beginning at age 25; Breast imaging: Annual breast MRI (or mammogram if MRI is unavailable) for individuals between the ages of 25-29 orindividualized based on earliest age of onset in the family Annual mammogram (with consideration of tomosynthesis) and breast MRI for individuals between the ages of 30-75 Management should be considered on an individual basis for individuals over the age of 75 For individuals with a BRCA pathogenic/likely pathogenic variant who are treated for breast cancer and have not had a bilateral mastectomy, screening with annual mammogram with consideration of tomosynthesis and breast MRI should continue as described above. Discuss option of risk-reducing mastectomy (RRM) Chemoprevention options for breast cancer risk reduction should [...] Decisions about HRT are deferred to a front end developer designer or HCP with expertise in menopause management. [...] device. Consultation with a gynecologic oncologist or front end developer designer with expe rtise in genetic susceptibility to cancer is recommended to discuss options. If desired, premenopausal women should be referred to fertility specialists for a discussion of fertility considerations. If eggs/embryos are cryopreserved, may be achieved with uterus in place, with or without fallopian tubes or ovaries. MALE BREAST CANCER RISK MANAGEMENT Breast self-exam training and education beginning at age 35; Clinical breast examination every 12 months, beginning at age 35 Consider annual mammogram screening starting at age 50, or 10 years before the earliest known male breast cancer in the family (whichever comes first) PROSTATE CANCER RISK MANAGEMENT Prostate cancer screening beginning at age 40 Men with a pathogenic variant in BRCA1 between the ages of 30-75 are eligible for a study at the National Institutes of Health, looking at use of MRI for prostate cancer screening:https://clinicalstud ies.info.nih.gov/protocoldetails.aspx?id=19-C-0040&&query= PANCREATIC CANCER RISK MANAGEMENT There are currently [...] risk management is appropriate. According to the [place] [employer], individuals with a family history of melanoma are encouraged to: (1) have clinical skin examinations performed by a industrial cleaning technician every 6-12 months, (2) perform thorough skin [...] recommendations, such as those made by the [place] [employer], do remain appropriate. [facility] ([facility]) We discussed the option of being seen by a nurse practitioner or physician in the Department of Clinical Genomics' Hereditary Cancer Clinic for medical management of BRCA2 cancer risks. The [facility] is dedicated to providing care and support to patients with hereditary risk of developing certain types of cancers. At the [facility], a variety of services are offered, including an annual visit addressing screening recommendations for the patient's specific needs and referral to specialties. Patients can be seen in person in [place] or via video visit. Similarly, screening/surveillance can take place in [place] or can be completed in a local health system. To be seen this clinic, patients can call [facility] at [phone] to discuss a referral. REPRODUCTIVE RISKS Preconception [...] limitations of this option. [facility] ([facility]) We discussed the option of being seen by a nurse practitioner or physician in the Department of Clinical Genomics' Hereditary Cancer Clinic for medical management of BRCA2 cancer risks. The [facility] is dedicated to providing care and support to patients with hereditary risk of developing certain types of cancers. At the [facility], a variety of services are offered, including an annual visit addressing screening recommendations for the patient's specific needs and referral to specialties. Patients can be seen in person in [place] or via video visit. Similarly, screening/surveillance can take place in [place] or can be completed in a local health system. To be seen this clinic, patients can call [facility] at [phone] to discuss a referral. REPRODUCTIVE RISKS Preconception [...] children. Genetic counseling is recommended for the patient???s family members, and genetic testing is available to determine if they carry the familial BRCA2 pathogenic variant. We encourage patients to share their genetic test report, as well as the information within this documentation, with their family members. We will also provide a family letter in this regard. To find a genetic counselor in their area, family members can visit: www.IntelligizecoFIGMDor.Likeable Local. RESOURCES The organization FORCE (Facing Our Risk for Cancer Empowered) has the mission of improving the lives of individuals and families affected by hereditary breast and ovarian cancer. The website for thisorganization is: www.[facility] Ortho & Spine SurgeryourToura.[employer]. PLAN No referrals placed today. Cydney is [...] encounter Visit Diagnoses Diagnosis Genetic Susceptibility To Disease documented in this encounter
--- OUTSIDE RECORDS SUMMARY | 2023-06-18 10:45 | XMS_ITS | Referral Summary ---
Author Name Unknown Organization [facility] Address [address] [place] [address] Care Team Providers Care Craft Artist Name Role Phone Unavailable Primary Care Provider Unavailabl e Source Comments Patient records contain information from all sites at [facility]. For routine questions regarding patient records, call [phone] during business hours, M-F 8:00 AM - 5:00 PM Central Time. Record requests for emergency care only can be directed to [phone] at any time.[facility] Encounters Date Type Department Care Team Description 06/15/2023 Clinical Communication Department of Medical Genetics in [place], [place] [address] [place] [address] Radha Burgos M.S., [place] 06/14/2023 3:00 PM CDT Telemedicine Department of Medical Genetics in [place], [place] [address] [place] [address] Chilo Mario M.D. Purfeerst, Madaline T M.SLuis, [facility] Genetic Susceptibility To Disease 06/11/2023 Orders Only Department of Medical Genetics in [place], [place] [address] [place] [address] Radha Burgos M.SLuis, [place] Genetic Susceptibility To Disease (Primary Dx) 05/14/2023 Clinical Communication Department of Medical Genetics in [place], [place] [address] [place] [address] Radha Burgos M.S., [facility] Ambry:MTP 05/14/2023 2:40 PM RETAIL TIRE SALES MANAGER - 05/14/2023 11:59 PM RETAIL TIRE SALES MANAGER Hospital Encounter Department of Laboratory Medicine and Pathology, [facility], in [place], [place] [address] [place] [address] Chilo Mario M.D. Family History Genetic Disorder; Cancer Breast Family History Discharge Disposition: Home or Self Care 05/11/2023 2:15 PM RETAIL TIRE SALES MANAGER Telemedicine Department of Medical Genetics in [place], [place] [address] [place] [address] Radha Burgos M.S., [facility] Family History Genetic Disorder (Primary Dx); Cancer Breast Family History from Last 3 Months Active Problems Problem Noted Date Diagnosed Date BRCA2 Gene Mutation Positive 06/15/2023 Overview: Germline genetic testing in 2023; 19-gene custom panel from [facility]. One heterozygous pathogenic variant found in the BRCA2 gene, specifically named p.[id number] (c.9004G>A). Social History Tobacco Use Types Packs/Day Years Used Date Smoking Tobacco: Never Assessed [facility] Utilities Answer Date Recorded In the past 12 months has [employer], gas, oil, or water [employer] threatened to shut off services in your [...] your living situation today? I have a [facility] place to live 05/08/2023 Sex and Gender Information Value Date Recorded Sex Assigned at Female 05/08/2023 12:42 PM RETAIL TIRE SALES MANAGER Gender Identity Female 05/08/2023 12:42 PM RETAIL TIRE SALES MANAGER Sexual Orientation Straight 05/08/2023 12 :42 PM RETAIL TIRE SALES MANAGER Plan of Treatment Not on file Procedures Procedure Name Priority Date/Time Associated Diagnosis Comments [facility] Routine 05/29/2023 1 2:11 PM CDT MISCELLANEOUS SENT OUT LAB TEST Routine 05/29/2023 12:11 PM CDT Family History Genetic Disorder Cancer Breast Family History from Last 3 Months Results * [facility] (05/29/2023 12:11 PM CDT) Pathologist [facility] Test Name Custom Panel 06/08/2023 12:12 PM CDT AMBR Result SEE COMMENT 06/08/2023 12:19 PM CDT AMBR Comment: For final report, select Lab-Send Out Lab Results hyperlink below. 05/29/2023 12:1 1 PM CDT 06/08/2023 12:11 PM CDT Chilo Mario M.D. LAB [facility] ORDERABLE S [facility] [address] [place] [address] [address] [place] [address], [facility] AMBR [facility] [address] [place] [address] * [id number] [facility] Custom Panel - Miscellaneous Test (05/29/2023 12:11 PM CDT) Test Name Custom Panel 06/08/2023 12:12 PM CDT HLS Saliva (Mouth) 05/29/2023 12 :11 PM CDT 06/08/2023 12:11 PM CDT Chilo Mario M.D. LAB MISC ORDERABLE S [facility] [address] [place] [address], [facility] HLS [facility] [address] [place] [address] from Last 3 Months HUONG Bello [phone]
== END 2023-06-18 10:40 | disposition home or self-care (01) ==
LOC: US 10:40
PROVIDERS: PCP Internal Medicine; Visit Provider Obstetrics & Gynecology
DX: Z15.01 Genetic susceptibility to malignant neoplasm of breast (principal); Z15.09 Genetic susceptibility to other malignant neoplasm
CPT/HCPCS: 76830; 76856

== ENCOUNTER 2023-07-31 08:25 | Day surgery (SDC) | payer MEDICARE, BC, SELFPAY ==
[2023-07-31] VITALS (17 sets, daily range): BP systolic 123–171; BP diastolic 66–104; PULSE 70–96; RESP 14–20; TEMP 36.1–36.8; O2SAT 87–98; BMI 23.2
--- OUTSIDE RECORDS SUMMARY | 2023-07-31 08:27 | XMS_ITS | Encounter Summary ---
Author Name Unknown Organization [facility] Address [address] [place] [address] Care Team Providers Care Customer Support Professional Name Role Phone Unavailable Primary Care Provider Unavailabl e Encounter Details Date Type Department Care Team (Late st Contact Info) Description 06/15/2023 Clinical Communication Department of Medical Genetics in [place], [place] [address] [place] [address] Radha Burgos M.S., [facility] [address] [place] [address] Social History Tobacco Use Types Packs/Day Years Used Date Smoking Tobacco: Never Assessed [facility] Utilities Answer Date Recorded In the [...] your living situation today? I have a [facility] place to live 05/08/2023 Sex and Gender Information Value Date Recorded Sex Assigned at Female 05/08/2023 12:42 PM PET CARE ASSISTANT Gender Identity Female 05/08/2023 12:42 PM PET CARE ASSISTANT Sexual Orientation Straight 05/08/2023 12 :42 PM PET CARE ASSISTANT documented as of this encounter Plan of Treatment Not on file documented as of this encounter Visit Diagnoses Not on filedocumented in this encounter
--- OUTSIDE RECORDS SUMMARY | 2023-07-31 08:27 | XMS_ITS | Encounter Summary ---
Author Name Unknown Organization [facility] Address [address] [place] [address] Care Team Providers Care Lifestyle Director Name Role Phone Unavailable Primary Care Provider Unavailabl e Reason for Visit * Outpatient (Routine) - Closed Specialty Diagnoses / Procedures Referred By Alicja leal Referred To Contact Video Medicine Diagnoses Genetic Susceptibility To Disease Chilo Mario M.D. [address] [place] [phone] [facility] Referral ID Status Reason Start Date Expiration Date Visits Re quested Visits Authorized [id number] Closed 06/11/2023 12/10/2024 1 1 Encounter Details Date Type Department Care Team (Late st Contact Info) Description 06/14/2023 3:00 PM CDT Telemedicine Department of Medical Genetics in [place], [place] [address] [place] [phone] Chilo Mario M.D. [address] [place] [phone] Radha Burgos M.S., [facility] [address] [place] [phone] Genetic Susceptibility To Disease Social History Tobacco Use Types Packs/Day Years Used Date Smoking Tobacco: Never Assessed [facility] Utilities Answer Date Recorded In the past [...] your living situation today? I have a [facility] place to live 05/08/2023 Sex and Gender Information Value Date Recorded Sex Assigned at Female 05/08/2023 12:42 PM PROCESSING INSPECTOR Gender Identity Female 05/08/2023 12:42 PM PROCESSING INSPECTOR Sexual Orientation Straight 05/08/2023 12 :42 PM PROCESSING INSPECTOR documented as of this encounter Progress Notes * Radha Burgos M.S., [facility] - 06/14/2023 3:00 PM CDT Images from [...] with BRCA2 site specific analysis, available from [employer]. This custom panel included genes associated with [...] variant in the BRCA2 gene, specifically named p.[id number] (c.9004G>A). A pathogenic variant is a harmful [...] the current understanding of BRCA2 and may drying rack changer time. The average risk to develop [...] for reference. These guidelines are subject to drying rack changer time. Patients are encouraged to contact [...] Decisions about HRT are deferred to a critical care registered nurse or HCP with expertise in menopause management. [...] device. Consultation with a gynecologic oncologist or critical care registered nurse with expe rtise in genetic susceptibility to [...] risk management is appropriate. According to the [place] [employer], individuals with a family history of melanoma are encouraged to: (1) have clinical skin examinations performed by a washer engineer every 6-12 months, (2) perform thorough skin [...] recommendations, such as those made by the [place] Cancer [employer], do remain appropriate. [facility] ([facility]) We discussed the option of being seen by a nurse practitioner or physician in the Department of Clinical Genomics' Hereditary Cancer Clinic for medical management of BRCA2 cancer risks. The [facility] is dedicated to providing care and support to patients with hereditary risk of developing certain types of cancers. At the [facility], a variety of services are offered, including an annual visit addressing screening recommendations for the patient's specific needs and referral to specialties. Patients can be seen in person in [place] or via video visit. Similarly, screening/surveillance can take place in [place] or can be completed in a local health system. To be seen this clinic, patients can call [facility] at [phone] to discuss a referral. REPRODUCTIVE RISKS Preconception [...] limitations of this option. [facility] ([facility]) We discussed the option of being seen by a nurse practitioner or physician in the Department of Clinical Genomics' Hereditary Cancer Clinic for medical management of BRCA2 cancer risks. The [facility] is dedicated to providing care and support to patients with hereditary risk of developing certain types of cancers. At the [facility], a variety of services are offered, including an annual visit addressing screening recommendations for the patient's specific needs and referral to specialties. Patients can be seen in person in [place] or via video visit. Similarly, screening/surveillance can take place in [place] or can be completed in a local health system. To be seen this clinic, patients can call [facility] at [phone] to discuss a referral. REPRODUCTIVE RISKS Preconception [...] in their area, family members can visit: www.EZMovecoYour Office Agentor.[employer]. RESOURCES The organization FORCE (Facing Our Risk for Cancer Empowered) has the mission of improving the lives of individuals and families affected by hereditary breast and ovarian cancer. The website for thisorganization is: www.InfobrightourBettingXpert.[employer]. PLAN No referrals placed today. Cydney is [...] and understanding. The patient's questions were answered. Electronically signed by Radha Burgos M.S., [facility] at 06/15/2023 8:15 AM CDT documented in this encounter Plan of Treatment Not on file documented as of this encounter Visit Diagnoses Diagnosis Genetic Susceptibility To Disease documented in this encounter
--- OUTSIDE RECORDS SUMMARY | 2023-07-31 08:27 | XMS_ITS | Referral Summary ---
Author Name Unknown Organization [facility] Address [address] [place] [address] Care Team Providers Care Ross Carrier Driver Name Role Phone Unavailable Primary Care Provider Unavailabl e Source Comments Patient records contain information from all sites at [facility]. For routine questions regarding patient records, call [phone] during business hours, M-F 8:00 AM - 5:00 PM Central Time. Record requests for emergency care only can be directed to [phone] at any time.[facility] Encounters Date Type Department Care Team Description 06/15/2023 Clinical Communication Department of Medical Genetics in [place], [place] [address] [place] [address] Radha Burgos M.S., [place] 06/14/2023 3:00 PM CDT Telemedicine Department of Medical Genetics in [place], [place] [address] [place] [address] Chilo Mario M.D. Purfeerst, Madaline T M.SLuis, [facility] Genetic Susceptibility To Disease 06/11/2023 Orders Only Department of Medical Genetics in [place], [place] [address] [place] [address] Radha Burgos M.SLuis, [place] Genetic Susceptibility To Disease (Primary Dx) 05/14/2023 Clinical Communication Department of Medical Genetics in [place], [place] [address] [place] [address] Radha Burgos M.S., [facility] [employer]:MTP 05/14/2023 2:40 PM CFD ENGINEER - 05/14/2023 11:59 PM CFD ENGINEER Hospital Encounter Department of Laboratory Medicine and Pathology, [facility], in [place], [place] [address] [place] [address] Chilo Mario M.D. Family History Genetic Disorder; Cancer Breast Family History Discharge Disposition: Home or Self Care 05/11/2023 2:15 PM CFD ENGINEER Telemedicine Department of Medical Genetics in [place], [place] [address] [place] [address] Radha Burgos M.S., [facility] Family History Genetic Disorder (Primary Dx); Cancer Breast Family History from Last 3 Months Active Problems Problem Noted Date Diagnosed Date BRCA2 Gene Mutation Positive 06/15/2023 Overview: Germline genetic testing in 2023; 19-gene custom panel from [facility]. One heterozygous pathogenic variant found in the BRCA2 gene, specifically named p.[id number] (c.9004G>A). Social History Tobacco Use Types Packs/Day Years Used Date Smoking Tobacco: Never Assessed [facility] Utilities Answer Date Recorded In the past 12 months has [place], gas, oil, or water [employer] threatened to shut off services in your [...] Sex Assigned at Female 05/08/2023 12:42 PM CFD ENGINEER Gender Identity Female 05/08/2023 12:42 PM CFD ENGINEER Sexual Orientation Straight 05/08/2023 12 :42 PM CFD ENGINEER Plan of Treatment Not on file Procedures Procedure Name Priority Date/Time Associated Diagnosis Comments [facility] Routine 05/29/2023 1 2:11 PM CDT MISCELLANEOUS SENT OUT LAB TEST Routine 05/29/2023 12:11 PM CDT Family History Genetic Disorder Cancer Breast Family History from Last 3 Months Results * [facility] (05/29/2023 12:11 PM CDT) Pathologist [facility] Test Name Custom Panel 06/08/2023 12:12 PM CDT AMBR Result SEE COMMENT 06/08/2023 12:19 PM CDT AMBR Comment: For final report, select Lab-Send Out Lab Results hyperlink below. 05/29/2023 12:1 1 PM CDT 06/08/2023 12:11 PM CDT Chilo Mario M.D. LAB [facility] S [facility] [address] [place] [address] [address] [place] [address], [facility] AMBR [employer] [address] [place] [address] * [id number] [facility] Custom Panel - Miscellaneous Test (05/29/2023 12:11 PM CDT) Test Name Custom Panel 06/08/2023 12:12 PM CDT HLS Saliva (Mouth) 05/29/2023 12 :11 PM CDT 06/08/2023 12:11 PM CDT Chilo Mario M.D. LAB MISC ORDERABLE S [facility] [address] [place] [address], [facility] HLS [facility] [address] [place] [address] from Last 3 Months HUONG Bello [phone]
--- OUTSIDE RECORDS SUMMARY | 2023-07-31 08:27 | XMS_ITS ---
Author Name Unknown Organization [facility] Address [address] [place] [address] Care Team Providers Care Preschool Adviser Name Role Phone Unavailable Unavailable Unavailable Surgery Details Not on file Complications Check Surgery Details section. Procedure Estimated Blood Loss Check Surgery Details section. Procedure Findings Check Surgery Details section. Procedure Specimens Taken Check Surgery Details section.
--- OUTSIDE RECORDS SUMMARY | 2023-07-31 08:27 | XMS_ITS | Encounter Summary ---
Author Name Unknown Organization [facility] Address [address] [place] [address] Care Team Providers Care Admissions Assistant Name Role Phone Unavailable Primary Care Provider Unavailabl e Reason for Referral * Outpatient (Routine) - Closed Specialty Diagnoses / Procedures Referred By Alicja leal Referred To Contact Video Medicine Diagnoses Genetic Susceptibility To Disease Chilo Mario M.D. [address] [place] [phone] [facility] Referral ID Status Reason Start Date Expiration Date Visits Re quested Visits Authorized [id number] Closed 06/11/2023 12/10/2024 1 1 Encounter Details Date Type Department Care Team (Late st Contact Info) Description 06/11/2023 Orders Only Department of Medical Genetics in [place], [place] [address] [place] [phone] Radha Burgos M.SuLis, [facility] [address] [place] [phone] Genetic Susceptibility To Disease (Primary Dx) Social History Tobacco Use Types Packs/Day Years Used Date Smoking Tobacco: Never Assessed [facility] Utilities Answer Date Recorded In the [...] your living situation today? I have a [facility] place to live 05/08/2023 Sex and Gender Information Value Date Recorded Sex Assigned at Female 05/08/2023 12:42 PM PORCELAIN MIXER Gender Identity Female 05/08/2023 12:42 PM PORCELAIN MIXER Sexual Orientation Straight 05/08/2023 12 :42 PM PORCELAIN MIXER documented as of this encounter Plan of Treatment Scheduled Referrals Name Type Priority Associated Diagnoses Orde r Schedule Video anyplace visit Outpatient Referral Routine Genetic Susceptibility To Disease Expected: 06/11/2023, Expires: 09/09/2024 documented as of this encounter Visit Diagnoses Diagnosis 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
--- OUTSIDE RECORDS SUMMARY | 2023-07-31 08:27 | XMS_ITS | Encounter Summary ---
Author Name Unknown Organization [facility] Address [address] [place] [address] Care Team Providers Care Sole Painter Name Role Phone Unavailable Primary Care Provider Unavailabl e Reason for Visit * Reason Onset Date Comments Ambry:MTP 05/14/2023 Encounter Details Date Type Department Care Team (Late st Contact Info) Description 05/14/2023 Clinical Communication Department of Medical Genetics in [place], [place] [address] [place] [address] Radha Burgos M.S., [facility] [address] [place] [address] Ambry:[facility] Social History Tobacco Use Types Packs/Day Years Used Date Smoking Tobacco: Never Assessed [facility] Utilities Answer Date Recorded In the past 12 months has [facility] electric, gas, oil, or water company threatened [...] your living situation today? I have a [facility] place to live 05/08/2023 Sex and Gender Information Value Date Recorded Sex Assigned at Female 05/08/2023 12:42 PM CLEANER AND POLISHER Gender Identity Female 05/08/2023 12:42 PM CLEANER AND POLISHER Sexual Orientation Straight 05/08/2023 12 :42 PM CLEANER AND POLISHER documented as of this encounter Miscellaneous Notes * Telephone Encounter - Lisa Vaughan - 05/14/2023 2:40 PM CST Date: 05/14/23 Lab: [facility] Test: non-RNA Sample: Lab to mail a kit to the pt and Mail Order has been scheduled and checked in. Provider: Radha Burgos CGC Insurance: Government NER AND POLISHER documented in this encounter Plan of Treatment Not on file documented as of this encounter Visit Diagnoses Not on filedocumented in this encounter
--- OUTSIDE RECORDS SUMMARY | 2023-07-31 08:27 | XMS_ITS | Encounter Summary ---
Author Name Unknown Organization [facility] Address [address] [place] [address] Care Team Providers Care Other Sports Coach Or Instructor Name Role Phone Unavailable Primary Care Provider Unavailabl e Encounter Details Date Type Department Care Team (Latest Contact Info) Description 05/14/2023 2:40 PM CONTINUITY COORDINATOR - 05/14/2023 11:59 PM CONTINUITY COORDINATOR Hospital Encounter Department of Laboratory Medicine and Pathology, [facility], in [place], [place] [address] [place] [address] Chilo Mario M.D. [address] [place] [address] Family History Genetic Disorder; Cancer Breast Family History Discharge Disposition: Home or Self Care Social History Tobacco Use Types Packs/Day Years Used Date Smoking Tobacco: Never Assessed [facility] Utilities Answer Date Recorded In the past 12 months has [facility] [employer], gas, oil, or water [employer] threatened to shut off services in your [...] your living situation today? I have a [facility] place to live 05/08/2023 Sex and Gender Information Value Date Recorded Sex Assigned at Female 05/08/2023 12:42 PM CONTINUITY COORDINATOR Gender Identity Female 05/08/2023 12:42 PM CONTINUITY COORDINATOR Sexual Orientation Straight 05/08/2023 12 :42 PM CONTINUITY COORDINATOR documented as of this encounter Miscellaneous Notes * Result Encounter Note - Radha Burgos M.S., [facility] - 06/15/2023 8:15 AM CDT CHIEF COMPLAINT/PURPOSE [...] with BRCA2 site specific analysis, available from [employer]. This custom panel included genes associated with [...] variant in the BRCA2 gene, specifically named [id number] (c.9004G>A). A pathogenic variant is a harmful [...] the current understanding of BRCA2 and may globe changer time. The average risk to develop [...] for reference. These guidelines are subject to globe changer time. Patients are encouraged to contact [...] Decisions about HRT are deferred to a optometrist owner or HCP with expertise in menopause management. [...] device. Consultation with a gynecologic oncologist or optometrist owner with expe rtise in genetic susceptibility to [...] risk management is appropriate. According to the [place] [employer], individuals with a family history of melanoma are encouraged to: (1) have clinical skin examinations performed by a retail marketing specialist every 6-12 months, (2) perform thorough [...] recommendations, such as those made by the [place] [employer], do remain appropriate. [facility] ([facility]) We discussed the option of being seen by a nurse practitioner or physician in the Department of Clinical Genomics' Hereditary Cancer Clinic for medical management of BRCA2 cancer risks. The [facility] is dedicated to providing care and support to patients with hereditary risk of developing certain types of cancers. At the [facility], a variety of services are offered, including an annual visit addressing screening recommendations for the patient's specific needs and referral to specialties. Patients can be seen in person in [place] or via video visit. Similarly, screening/surveillance can take place in [place] or can be completed in a local health system. To be seen this clinic, patients can call [facility] at [phone] to discuss a referral. REPRODUCTIVE RISKS Preconception [...] limitations of this option. [facility] ([facility]) We discussed the option of being seen by a nurse practitioner or physician in the Department of [facility] Gen[facility]' Hereditary Cancer Clinic for medical management of BRCA2 cancer risks. The [facility] is dedicated to providing care and support to patients with hereditary risk of developing certain types of cancers. At the [facility], a variety of services are offered, including an annual visit addressing screening recommendations for the patient's specific needs and referral to specialties. Patients can be seen in person in [place] or via video visit. Similarly, screening/surveillance can take place in [place] or can be completed in a local health system. To be seen this clinic, patients can call [facility] at [phone] to discuss a referral. REPRODUCTIVE RISKS Preconception [...] in their area, family members can visit: [email or web address]. RESOURCES The organization FOR[employer] (Facing Our Risk for Cancer Empowered) has the mission of improving the lives of individuals and families affected by hereditary breast and ovarian cancer. The website for thisorganization is: www.[employer]. PLAN No referrals placed today. Cydney is [...] Procedure Name Priority Date/Time Associated Diagnosis Comments [facility] [employer] GENETICS Routine 05/29/2023 1 2:11 PM CDT MISCELLANEOUS SENT OUT LAB TEST Routine 05/29/2023 12:11 PM CDT Family History Genetic Disorder Cancer Breast Family History documented in this encounter Results * [facility] (05/29/2023 12:11 PM CDT) Test Name Custom Panel 06/08/2023 12:12 PM CDT AMBR Result SEE COMMENT 06/08/2023 12:19 PM CDT AMBR Comment: For final report, select Lab-Send Out Lab Results hyperlink below. 05/29/2023 12:1 1 PM CDT 06/08/2023 12:11 PM CDT Chilo Mario M.D. LAB MISC ORDERABLE S [facility] [address] [place] [address], [facility] AMBR [facility] [address] [place] [address] * [id number] [facility] Custom Panel - Miscellaneous Test (05/29/2023 12:11 PM CDT) Test Name Custom Panel 06/08/2023 12:12 PM CDT HLS Saliva (Mouth) 05/29/2023 12 :11 PM CDT 06/08/2023 12:11 PM CDT Chilo Mario M.D. LAB MISC ORDERABLE S [facility] [address] [place] [address], [facility] HLS [facility] [address] [place] [address] documented in this encounter Visit Diagnoses Diagnosis Family History Genetic Disorder Cancer Breast Family History documented in this encounter
--- OUTSIDE RECORDS SUMMARY | 2023-07-31 08:27 | XMS_ITS | Clinical Summary ---
Author Name Unknown Organization [facility] Address [address] [place] [address] Care Team Providers Care Reliability Technicians Name Role Phone Unavailable Primary Care Provider Unavailabl e Source Comments Patient records contain information from all sites at [facility]. For routine questions regarding patient records, call [phone] during business hours, M-F 8:00 AM - 5:00 PM Central Time. Record requests for emergency care only can be directed to [phone] at any time.[facility] Active Problems Problem Noted Date Diagnosed Date BRCA2 Gene Mutation Positive 06/15/2023 Overview: Germline genetic testing in 2023; 19-gene custom panel from [facility]. One heterozygous pathogenic variant found in the BRCA2 gene, specifically named [id number] (c.9004G>A). Encounters Date Type Department Care Team Description 06/15/2023 Clinical Communication Department of Medical Genetics in [place], [place] [address] [place] [address] Radha Burgos M.SLuis, [facility] 06/14/2023 3:00 PM CDT Telemedicine Department of Medical Genetics in [place], [place] [address] [place] [address] Chilo Mario M.D. Purfeerst, Madaline T, M.S., CGC Genetic Susceptibility To Disease 06/11/2023 Orders Only Department of Medical Genetics in [place], [place] [address] [place] [address] Radha Burgos, M.S., [facility] Genetic Susceptibility To Disease (Primary Dx) 05/14/2023 2:40 PM OPTICAL INSTRUMENT INSPECTOR - 05/14/2023 11:59 PM OPTICAL INSTRUMENT INSPECTOR Hospital Encounter Department of Laboratory Medicine and Pathology, [facility], in [place], [place] [address] [place] [address] Chilo Mario M.D. Family History Genetic Disorder; Cancer Breast Family History Discharge Disposition: Home or Self Care 05/14/2023 Clinical Communication Department of Medical Genetics in [place], [place] [address] [place] [address] Radha Burgos M.S., [facility] Ambry:MTP 05/11/2023 2:15 PM OPTICAL INSTRUMENT INSPECTOR Telemedicine Department of Medical Genetics in [place], [place] [address] [place] [address] Radha Burgos M.S., [facility] Family History Genetic Disorder (Primary Dx); Cancer Breast Family History from Last 3 Months Family History Medical History Relation Name Comments BRCA2 Positive Brother 1 assumed. daug hter's mom tested negative Prostate cancer Brother 1 Prostate cancer Brother 2 Diabetes type I Daughter 1 Prostate cancer Father Srinivas Skin cancer Father Srinivas non-melanoma Prostate cancer [...] cancer Paternal Cousin Prostate cancer Paternal Grandfather [place] Ovarian cancer Paternal Grandmother Liana Uterine fibroid [...] Years Used Date Smoking Tobacco: Never Assessed [facility] Utilities Answer Date Recorded In the past 12 months has th e [employer], gas, oil, or water [employer] threatened to shut off services in your [...] living situation today? I have a [facility] place to live 05/08/2023 Sex and Gender Information Value Date Recorded Sex Assigned at Female 05/08/2023 12:42 PM OPTICAL INSTRUMENT INSPECTOR Gender Identity Female 05/08/2023 12:42 PM OPTICAL INSTRUMENT INSPECTOR Sexual Orientation Straight 05/08/2023 12 :42 PM OPTICAL INSTRUMENT INSPECTOR Plan of Treatment Health Maintenance Due Date Last Done Comments Bone Density Scan (Osteoporo sis Screen) [address] Colonography 1957 Cologuard 1957 Colonoscopy 1957 Colorectal Cancer Screening 1957 FIT 1957 Fasting Glucose for Diabetes Screening 1957 Hepatitis C Screening 1955 Mammogram 1957 Ovarian Cancer Screening (CA 125) 1957 Ovarian Cancer Screening Ultrasound 1957 Pneumococcal vaccine (65+ ye ars) (2 of 2 - PCV) 2022 01/30/2014 Depression Screening (Annual PHQ-2) 03/12/2023 Fall Risk Screen (Annual) 03/12/2023 COVID-19 Vaccine (7 - 2022-2 4 season) 2023 12/08/2022, 07/11/2022, 02/22/2022, Additional history exists DTaP,Tdap,and Td Vaccines (3 - Td or Tdap) 11/21/2032 11/21/2022, 04/03/2012 Zoster Vaccines Completed 02/20/2019, 12/02/2018 Influenza Vaccine Completed 11/21/2022, , 11/10/2020, Additional history exists Procedures Procedure Name Priority Date/Time Associated Diagnosis Comments [facility] Routine 05/29/2023 1 2:11 PM CDT MISCELLANEOUS SENT OUT LAB TEST Routine 05/29/2023 12:11 PM CDT Family History Genetic Disorder Cancer Breast Family History from Last 3 Months Results * [facility] (05/29/2023 12:11 PM CDT) Test Name Custom Panel 06/08/2023 12:12 PM CDT AMBR Result SEE COMMENT 06/08/2023 12:19 PM CDT AMBR Comment: For final report, select Lab-Send Out Lab Results hyperlink below. 05/29/2023 12:1 1 PM CDT 06/08/2023 12:11 PM CDT Chilo Mario M.D. LAB MISC ORDERABLE S [facility] [address] [place] [address], [place] [facility] [address] [place] [address] * [id number] [facility] Custom Panel - Miscellaneous Test (05/29/2023 12:11 PM CDT) Test Name Custom Panel 06/08/2023 12:12 PM CDT HLS Saliva (Mouth) 05/29/2023 12 :11 PM CDT 06/08/2023 12:11 PM CDT Chilo Mario M.D. LAB MISC ORDERABLE S Performing Organization Address City/[facility]/ZIP Co de Phone Number [facility] [address] [place] [address], [facility] [address] [place] [address] from Last 3 Months
--- OUTSIDE RECORDS SUMMARY | 2023-07-31 08:27 | XMS_ITS | Encounter Summary ---
Author Name Unknown Organization [facility] Address [address] [place] [address] Care Team Providers Care Rivet Sorter Name Role Phone Unavailable Primary Care Provider Unavailabl e Reason for Visit * Appointment Request (Routine) - Closed Specialty Diagnoses / Procedures Referred By Alicja leal Referred To Contact Clinical Genomics Diagnoses Family History Genetic Disorder Referral ID Status Reason Start Date Expiration Date Visits Re quested Visits Authorized [id number] Closed 04/13/2023 04/12/2024 1 1 Encounter Details Date Type Department Care Team (Late st Contact Info) Description 05/11/2023 2:15 PM HEALTH COORDINATOR Telemedicine Department of Medical Genetics in [place], [place] [address] [place] [phone] Radha Burgos M.S., [facility] [address] [place] [phone] Family History Genetic Disorder (Primary Dx); Cancer Breast Family History Social History Tobacco Use Types Packs/Day Years Used Date Smoking Tobacco: Never Assessed [facility] Utilities Answer Date Recorded In the past 12 months has [employer], gas, oil, or water [employer] threatened to shut off services in your [...] your living situation today? I have a [facility] place to live 05/08/2023 Sex and Gender Information Value Date Recorded Sex Assigned at Female 05/08/2023 12:42 PM HEALTH COORDINATOR Gender Identity Female 05/08/2023 12:42 PM HEALTH COORDINATOR Sexual Orientation Straight 05/08/2023 12 :42 PM HEALTH COORDINATOR documented as of this encounter Consult Notes * Radha Burgos M.S., [facility] - 05/11/2023 2:15 PM CST Images from [...] specific familial BRCA2 variant is named: c.9004G>A ([id number]). The family history is also significant for the following cancer types: breast cancer, ovarian cancer, pancreatic cancer, prostate cancer, skin cancer including melanoma, and benign uterine fibroids. Cydney attended today???s consultation unaccompanied. Consult conducted via real- time audio/video technology by Radha Burgos M.S., [facility] in [facility] to the patient in Patient's Home. FAMILY HISTORY A detailed family history was obtained from the patient and a pedigree was constructed. The pedigree will be saved as a scanned document and available for viewing under the Media tab of [employer]. Our risk assessment is based upon medical [...] with BRCA2 site specific analysis, available from [employer]. This custom kit will include genes associated [...] questions were answered. Total time: 18 minutes TH COORDINATOR documented in this encounter Plan of Treatment Not on file documented as of this encounter Results * [id number] [facility] - Miscellaneous Test (05/29/2023 12:11 PM CDT) Test Name Custom Panel 06/08/2023 12:12 PM CDT HLS Saliva (Mouth) 05/29/2023 12 :11 PM CDT 06/08/2023 12:11 PM CDT Chilo Mario M.D. LAB MISC ORDERABLE S [facility] [address] [place] [address], [facility] HLS [facility] [address] [place] [address] documented in this encounter Visit Diagnoses Diagnosis Family History Genetic Disorder- Primary Cancer Breast Family History documented in this encounter
[2023-07-31 08:53] LABS: Hemoglobin* 13.4 gm/dL (12.0-16.0)
[2023-07-31 09:13] LABS: Creatinine* 0.7 mg/dL (0.5-1.5); Est. Creatinine Clearance* 45.78; Estimated Glomerular Filt Rate 95 ml/min
[2023-07-31] MEDS: LACTATED RINGERS 1000 ML 1,000 ML 100 ML IV (09:20)
--- NOTE | 2023-07-31 09:32 | W.PM.H&PU ---
History & Physical Update History & Physical Update H&P Reviewed and patient assessed: No changes noted
[2023-07-31] MEDS: SODIUM CHLORIDE 0.9 % (FLUSH) 10 ML SYRINGE IVF (09:36)
[2023-07-31] MEDS: BUPIVACAINE 0.5% 30 ML INJECTION (10:44)
[2023-07-31] MEDS: METHYLENE BLUE 1 % 10 ml 100 MG INJECTION (10:44)
--- NOTE | 2023-07-31 11:20 | W.ANESCHARGE ---
Anesthesia Charges Start Date/Time Anesthesia Start Date: 07/31/23 Anesthesia Start Time: 09:55 Stop Date/Time Anesthesia Stop Date: 07/31/23 Anesthesia Stop Time: 12:30
--- NOTE | 2023-07-31 12:35 | W.ANESCHARGE ---
Anesthesia Charges Start Date/Time Anesthesia Start Date: 07/31/23 Anesthesia Start Time: 09:55 Stop Date/Time Anesthesia Stop Date: 07/31/23 Anesthesia Stop Time: 12:30
--- NOTE | 2023-07-31 13:13 | SUR.PHASEI ---
Patient d/c to the floor delayed r/t patient placement and which unit she was going to be discharge to. MD aware she was d/c'd to OB 220, report given to OB RN
[2023-07-31] MEDS: KETOROLAC 30 MG/ML inj IVP (13:57)
--- NOTE | 2023-07-31 14:48 | P.GYNPRC_ITS ---
Procedure Note Date of procedure: 07/31/23 Will [facility] bill your pro fee for this procedure?: Yes Pre-op diagnosis: BRCA 2 positive Post-op diagnosis: BRCA 2 positive, intra abdominal adhesions Procedure: Laparoscopic bilateral oophorectomy, left salpingectomy, pelvic washings, extensive lysis of adhesions and cystoscopy Anesthesia: GETA Complications: None Surgeon: Bharath Thomas MD Boat Outfitting Supervisor: Dimple Marino Estimated blood loss (mL): 5 IV fluids (mL): 1,000 Pathology: specimen obtained, sent to pathology (Pelvic washings to cytology, right ovary, left ovary and fallopian tube) Condition: stable Disposition: same day Findings: Intra abdominal survey: Omental adhesions to anterior abdominal wall. Evidence of hysterectomy. Sigmoid epiploica adhesions to the right ovary. Right ovary adhered to bladder peritoneum. Left ovary and fallopian tube adhered to bladder peritoneum as well. Adhesions between right and left ovary and bladder peritoneum. Bilateral ureters noted intra abdominally coursing in the normal anatomic place. Cystoscopy: gas bubbles noted at bladder dome, no injury to the bladder noted, intact mucosa all over, bilateral ureteral jets noted and normal. Procedure Description: DESCRIPTION OF PROCEDURE: After obtaining informed consent, the patient was taken to the operating room where general anesthesia was obtained without difficulty. She was prepared and draped in the normal sterile fashion in the low dorsal lithotomy position. A Cruz catheter was inserted into the bladder and left to gravity drainage. I then changed gloves and my attention was turned to the abdomen. The inferior aspect of the umbilical fold was injected with 0.5% Marcaine plain. A 5 mm vertical incision was then made within the umbilical fold using a scalpel. A direct entry technique was used and a 5 mm laparoscopic port with CO2 gas set at 5mmHg was introduced under direct visualization. The trocar was removed leaving the sleeve in place. The CO2 gas flow was turned to high flow to achieve pneumoperitoneum. The 5 mm laparoscope was used then to carefully inspect the abdomen and pelvis with findings noted above. Pictures were taken for documentation purposes. The patient was placed in Trendelenburg positioning. Omental adhesions interrupted complete visualization to the pelvis and decision was made to release. Two additional ports were placed in the left lower abdominal quadrant and another at the level of the umbilicus to the left of umbilicus, about 3-4 cm lateral from umbilicus under direct visualization after first anesthetizing the skin and fascia with 0.5% Marcaine plain. LigaSure bipol ar device utilized to release omental adhesions to anterior lower abdominal wall. Filmy areas were clamped, coagulated and cut. Hemostasis secured. This allowed visualization of the pelvis and visualization of the right lower abdomen for placement of another port in this area. The left lower abdominal quadrant port was extended to place a 11mm port under direct visualization on the right lower abdomen a 5mm port was placed similarly under direct visualization. Pelvic washings completed. The pelvis, posterior cul de sac and the pelvic peritoneum were irrigated with saline and with a large laparoscopic syringe pelvic washing fluid collected. The ureters were identified bilaterally along their courses in the pelvic sidewalls. Sigmoid epiploica adhesion to the right ovary released with LigaSure, making sure that more than 2cm distance was present from resection site to the sigmoid serosa. The right infundibulopelvic ligament was then clamped at a distance of at least 2cm from the ovarian tissue, coagulated and cut with LigaSure device. Ovary was still densely attached to the bladder peritoneum. To safely dissect the ovary the bladder was backfilled with 200mL of saline. This allowed delineation of the bladder and dense adhesions were treated with laparoscopic scissors and LigaSure device until able to safely remove the ovary through the 11mm port. Attention was then placed to the left side. The left infundibulopelvic ligament was clamped at a distance of at least 2cm from the ovarian tissue, coagulated and cut with LigaSure device. The left fallopian tube was noted to be adhered to the ovarian tissue and bladder peritoneum. Utilizing laparoscopic scissors and LigaSure device dense adhesions were taken down slowly and carefully to avoid damage to the bladder. This dissection took at least 1 hour. Hemostasis was noted at resection sites. Preparations were then made for cystoscopy. Methylene blue was administered intravenously along with the IV fluids. The Cruz catheter was removed. The patient was flattened out and the gas was released. Cystoscopy was performed using sterile normal saline as distending medium. The bladder was carefully inspected and noted to be free of filling defects. Both ureteral orifices were easily visualized and Methylene blue tinged urine jets were noted from both sides. The cystoscope was then removed. The Cruz catheter was replaced into the bladder. Attention was once again turned to the abdomen. The abdomen and pelvis were again irrigated and inspected for hemostasis. Raj was placed over resection sites to further secure hemostasis. Attention was then placed to the 11mm port site and under direct visualization using a Faraz-Sydni system the fascia was closed. All instruments were then removed under direct visualization. Pneumoperitoneum was allowed to escape. The skin at all port sites was closed in a subcuticular fashion with 4-0 Monocryl. LiquiBand was then placed over the incisions. The patient tolerated the procedure well. Sponge, lap, needle, and instrument counts were reported as correct x2. The patient was taken to the recovery room awake and in stable condition. PATHOLOGY SPECIMEN(S): Pelvic washings, right ovary, left ovary and fallopian tube. FU: Patient was taken to room and has been doing well, initially felt a bit dizzy when standing up but currently has been able to ambulate w/o dizziness, SOB. Pain is very well under control. She is passing gas. Patient is requesting discharge home today. If able to urinate w/o concerns will proceed with discharge at this time.
[2023-07-31] MEDS: ACETAMINOPHEN 325 MG TABLET 1000 MG PO (17:31)
== END 2023-07-31 17:45 | disposition home or self-care (01) ==
LOC: OR 08:25 → MEDSURG 08:27 → OB 13:31
PROVIDERS: PCP Internal Medicine; Visit Provider Obstetrics & Gynecology
PROC: (CPT 58661; principal; 2023-07-31 09:30)
DX: K66.0 Peritoneal adhesions (postprocedural) (postinfection) (principal); Z15.01 Genetic susceptibility to malignant neoplasm of breast; Z15.09 Genetic susceptibility to other malignant neoplasm; R42 Dizziness and giddiness; Z80.3 Family history of malignant neoplasm of breast; Z80.42 Family history of malignant neoplasm of prostate
CPT/HCPCS: 58661; 49084; 49329; 00840; 36415; 82565; 85018; 88112; 88307; 88341; 88342; A9270; J0330; J0665; J1100; J1630; J1885; J2250; J2405; J2704; J3010; J3490; J7120

== ENCOUNTER 2023-08-22 07:35 | Outpatient (CLI) | payer MEDICARE, BC, SELFPAY ==
--- OUTSIDE RECORDS SUMMARY | 2023-08-25 20:23 | XMS_ITS | Clinical Summary ---
Author Organization [facility] Address [address] [place] [address] Care Team Providers Care Gripper Installer Name Role Phone Unavailable Primary Care Provider Unavailabl e Source Comments Patient records contain information from all sites at [facility]. For routine questions regarding patient records, call [phone] during business hours, M-F 8:00 AM - 5:00 PM Central Time. Record requests for emergency care only can be directed to [phone] at any time.[facility] Active Problems Problem Noted Date Diagnosed Date BRCA2 Gene Mutation Positive 06/15/2023 Overview: Germline genetic testing in 2023; 19-gene custom panel from [facility]. One heterozygous pathogenic variant found in the BRCA2 gene, specifically named [id number] (c.9004G>A). Encounters Date Type Department Care Team Description 08/23/2023 Clinical Communication Department of Obstetrics and Gynecology, Division of Gynecologic Oncology in [place], [place] [address] [place] [address] Prescheduling, Provider 06/15/2023 Clinical Communication Department of Medical Genetics in [place], [place] [address] [place] [address] Radha Burgos MLiliane, [facility] 06/14/2023 3:00 PM CDT Telemedicine Department of Medical Genetics in [place], [place] [address] [place] [address] Chilo Mario M.D. Purfeerst, Madaline T MLuisSLuis, [facility] Genetic Susceptibility To Disease 06/11/2023 Orders Only Department of Medical Genetics in [place], [place] [address] [place] [address] Radha Burgos M.S., [facility] Genetic Susceptibility To Disease (Primary Dx) from Last 3 Months Family History Medical History Relation Name Comments BRCA2 Positive Brother 1 assumed. ashley hter's mom tested negative Prostate cancer Brother [...] 2 Rosi BRCA2 Positive Niece no cancer; radha terjohana grandmother: breast cancer; mother: no genetic testing, risk reducing bilateral mastectomy Pancreatic cancer Paternal Cousin Prostate cancer Paternal Grandfather Damien Ovarian cancer Paternal Grandmother Liana Uterine fibroid [...] Years Used Date Smoking Tobacco: Never Assessed [facility] Utilities Answer Date Recorded In the past 12 months has th e Its Time Compliance, gas, oil, or water [employer] threatened to shut off services in your [...] your living situation today? I have a [facility] place to live 05/08/2023 Sex and Gender Information Value Date Recorded Sex Assigned at Female 05/08/2023 12:42 PM BAND SAW OPERATOR Gender Identity Female 05/08/2023 12:42 PM BAND SAW OPERATOR Sexual Orientation Straight 05/08/2023 12 :42 PM BAND SAW OPERATOR Plan of Treatment Upcoming Encounters Date Type Department Care Team (Late st Contact Info) Description 09/11/2023 9:15 AM CDT Comprehensive Visit Department of Obstetrics and Gynecology, Division of Gynecologic Oncology in [place], [place] [address] [place] [address] Ede Garcia M.D. 200 [place] [address] Health Maintenance Due Date Last Done Comments Bone Density Scan (Osteoporo sis Screen) [address] Colonography 1957 Cologuard 1957 Colonoscopy 1957 Colorectal Cancer Screening 1957 FIT 1957 Fasting Glucose for Diabetes Screening 1957 Hepatitis C Screening 1957 Mammogram 1957 Pneumococcal vaccine (65+ ye ars) (2 [...] Procedure Name Priority Date/Time Associated Diagnosis Comments [facility] Routine 05/29/2023 1 2:11 PM CDT MISCELLANEOUS SENT OUT LAB TEST Routine 05/29/2023 12:11 PM CDT Family History Genetic Disorder Cancer Breast Family History from Last 3 Months Results * [facility] (05/29/2023 12:11 PM CDT) Test Name Custom Panel 06/08/2023 12:12 PM CDT [facility] Result SEE COMMENT 06/08/2023 12:19 PM CDT [facility] Comment: For final report, select Lab-Send Out Lab Results hyperlink below. 05/29/2023 12:1 1 PM CDT 06/08/2023 12:11 PM CDT Chilo Mario M.D. LAB [facility] ORDERABLE S [facility] [address] [place] [address], [place] [facility] [address] [place] [address] * [id number] [facility] Custom Panel - Miscellaneous Test (05/29/2023 12:11 PM CDT) Test Name Custom Panel 06/08/2023 12:12 PM CDT [facility] Saliva (Mouth) 05/29/2023 12 :11 PM CDT 06/08/2023 12:11 PM CDT Chilo Mario M.D. LAB [facility] ORDERABLE S [facility] [address] [place] [address], [facility] [address] [place] [address] from Last 3 Months HUONG Bello [phone]
--- OUTSIDE RECORDS SUMMARY | 2023-08-25 20:24 | XMS_ITS | Encounter Summary ---
Author Organization [facility] Address [address] [place] [address] Care Team Providers Care Rag Grader Name Role Phone Unavailable Primary Care Provider Unavailabl e Encounter Details Date Type Department Care Team (Late st Contact Info) Description 08/23/2023 Clinical Communication Department of Obstetrics and Gynecology, Division of Gynecologic Oncology in [place], [place] [address] [place] [address] Prescheduling, Provider Social History Tobacco Use Types Packs/Day Years Used Date Smoking Tobacco: Never Assessed [facility] Utilities Answer Date Recorded In [...] your living situation today? I have a [facility] place to live 05/08/2023 Sex and Gender Information Value Date Recorded Sex Assigned at Female 05/08/2023 12:42 PM SHIPPER Gender Identity Female 05/08/2023 12:42 PM SHIPPER Sexual Orientation Straight 05/08/2023 12 :42 PM SHIPPER documented as of this encounter Plan of Treatment Upcoming Encounters Date Type Department Care Team (Late st Contact Info) Description 09/11/2023 9:15 AM CDT Comprehensive Visit Department of Obstetrics and Gynecology, Division of Gynecologic Oncology in [place], [place] [address] [place] [address] Ede Garcia M.D. [address] [place] [address] documented as of this encounter Visit Diagnoses Not on filedocumented in this encounter
--- OUTSIDE RECORDS SUMMARY | 2023-08-25 20:24 | XMS_ITS | Encounter Summary ---
Author Organization [facility] Address [address] [place] [address] Care Team Providers Care Cleaning Staff Supervisor Name Role Phone Unavailable Primary Care Provider Unavailabl e Encounter Details Date Type Department Care Team (Late st Contact Info) Description 06/15/2023 Clinical Communication Department of Medical Genetics in [place], [place] [address] [place] [address] Radha Burgos M.S., [facility] [address] [place] [address] Social History Tobacco Use Types Packs/Day Years Used Date Smoking Tobacco: Never Assessed [facility] Utilities Answer Date Recorded [...] your living situation today? I have a [facility] place to live 05/08/2023 Sex and Gender Information Value Date Recorded Sex Assigned at Female 05/08/2023 12:42 PM [place] Gender Identity Female 05/08/2023 12:42 PM [place] Sexual Orientation Straight 05/08/2023 12 :42 PM [place] documented as of this encounter Plan of Treatment Upcoming Encounters Date Type Department Care Team (Late st Contact Info) Description 09/11/2023 9:15 AM CDT Comprehensive Visit Department of Obstetrics and Gynecology, Division of Gynecologic Oncology in [place], [place] [address] [place] [address] Ede Garcia M.D. [address] [place] [address] documented as of this encounter Visit Diagnoses Not on filedocumented in this encounter
--- OUTSIDE RECORDS SUMMARY | 2023-08-25 20:24 | XMS_ITS | Encounter Summary ---
Author Organization [facility] Address [address] [place] [address] Care Team Providers Care A And P Mechanic Name Role Phone Unavailable Primary Care Provider Unavailabl e Reason for Referral * Outpatient (Routine) - Closed Specialty Diagnoses / Procedures Referred By Alicja leal Referred To Contact Video Medicine Diagnoses Genetic Susceptibility To Disease Chilo Mario M.D. 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 I have a [facility] place to live 05/08/2023 Sex and Gender Information Value Date Recorded Sex Assigned at Female 05/08/2023 12:42 PM MATTRESS SPRING ENCASER Gender Identity Female 05/08/2023 12:42 PM MATTRESS SPRING ENCASER Sexual Orientation Straight 05/08/2023 12 :42 PM MATTRESS SPRING ENCASER documented as of this encounter Plan of Treatment Upcoming Encounters Date Type Department Care Team (Late st Contact Info) Description 09/11/2023 9:15 AM CDT Comprehensive Visit Department of Obstetrics and Gynecology, Division of Gynecologic Oncology in [place], [place] [address] [place] [address] Ede Garcia M.D. 200 [place] [address] Scheduled Referrals Name Type Priority Associated Diagnoses Orde r Schedule Video anyplace visit Outpatient Referral Routine Genetic Susceptibility To Disease Expected: 06/11/2023, Expires: 09/09/2024 documented as of this encounter Visit Diagnoses Diagnosis 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
--- OUTSIDE RECORDS SUMMARY | 2023-08-25 20:24 | XMS_ITS | Encounter Summary ---
Author Organization [facility] Address [address] [place] [address] Care Team Providers Care Marble Mason Name Role Phone Unavailable Primary Care Provider Unavailabl e Reason for Visit * Outpatient (Routine) - Closed Specialty Diagnoses / Procedures Referred By Alicja leal Referred To Contact Video Medicine Diagnoses Genetic Susceptibility To Disease Chilo Mario M.D. [address] [place] [phone] [facility] Referral ID Status Reason Start Date Expiration Date Visits Re quested Visits Authorized [id number] Closed 06/11/2023 12/10/2024 1 1 Encounter Details Date Type Department Care Team (Late st Contact Info) Description 06/14/2023 3:00 PM CDT Telemedicine Department of Medical Genetics in [place], [place] [address] [place] [phone] Chilo Mario M.D. [address] [place] [phone] Radha Burgos M.S., [facility] [address] [place] [phone] Genetic Susceptibility To Disease Social History Tobacco Use Types Packs/Day Years Used Date Smoking Tobacco: Never Assessed [facility] Utilities Answer Date Recorded In the [...] your living situation today? I have a [facility] place to live 05/08/2023 Sex and Gender Information Value Date Recorded Sex Assigned at Female 05/08/2023 12:42 PM SHRIMP HEADER Gender Identity Female 05/08/2023 12:42 PM SHRIMP HEADER Sexual Orientation Straight 05/08/2023 12 :42 PM SHRIMP HEADER documented as of this encounter Progress Notes * Radha Burgos M.S., [facility] - 06/14/2023 3:00 PM CDT Images from [...] with BRCA2 site specific analysis, available from [facility]. This custom panel included genes associated with [...] variant in the BRCA2 gene, specifically named p.[id number] (c.9004G>A). A pathogenic variant is a harmful [...] the current understanding of BRCA2 and may meter changes records clerk time. The average risk to develop breast [...] for reference. These guidelines are subject to meter changes records clerk time. Patients are encouraged to contact our [...] Decisions about HRT are deferred to a surveyor's assistant or HCP with expertise in menopause management. [...] device. Consultation with a gynecologic oncologist or surveyor's assistant with expe rtise in genetic susceptibility to [...] risk management is appropriate. According to the [employer], individuals with a family history of melanoma are encouraged to: (1) have clinical skin examinations performed by a black oxide operator every 6-12 months, (2) perform thorough skin [...] recommendations, such as those made by the [employer], do remain appropriate. HEREDITARY CANCER [...] Patients can be seen in person in [place] or via video visit. Similarly, screening/surveillance can take place in [place] or can be completed in a local health system. To be seen this clinic, patients can call [facility] at [phone] to discuss a referral. REPRODUCTIVE RISKS Preconception [...] Patients can be seen in person in [place] or via video visit. Similarly, screening/surveillance can take place in [place] or can be completed in a local health system. To be seen this clinic, patients can call [facility] at [phone] to discuss a referral. REPRODUCTIVE RISKS Preconception [...] in their area, family members can visit: [email or web address].Inclinix. RESOURCES The organization [employer] (Facing Our Risk for Cancer [employer]) has the mission of improving the lives of individuals and families affected by hereditary breast and ovarian cancer. The website for thisorganization is: www.[employer].AppGratis. PLAN No referrals placed today. Cydney is [...] documented in this encounter Plan of Treatment Upcoming Encounters Date Type Department Care Team (Late st Contact Info) Description 09/11/2023 9:15 AM CDT Comprehensive Visit Department of Obstetrics and Gynecology, Division of Gynecologic Oncology in [place], [place] [address] [place] [address] Ede Garcia M.D. [address] [place] [address] documented as of this encounter Visit Diagnoses Diagnosis Genetic Susceptibility To Disease documented in this encounter
--- OUTSIDE RECORDS SUMMARY | 2023-08-25 20:24 | XMS_ITS ---
Author Organization [facility] Address [address] [place] [address] Care Team Providers Care Wireless Sales Representative Name Role Phone Unavailable Unavailable Unavailable Surgery Details Not on file Complications Check Surgery Details section. Procedure Estimated Blood Loss Check Surgery Details section. Procedure Findings Check Surgery Details section. Procedure Specimens Taken Check Surgery Details section.
--- OUTSIDE RECORDS SUMMARY | 2023-08-25 20:24 | XMS_ITS | Referral Summary ---
Author Organization [facility] Address [address] [place] [phone] Care Team Providers Care Software Engineering Associate Manager Name Role Phone Unavailable Primary Care Provider Unavailabl e Source Comments Patient records contain information from all sites at [facility]. For routine questions regarding patient records, call [phone] during business hours, M-F 8:00 AM - 5:00 PM Central Time. Record requests for emergency care only can be directed to [phone] at any time.[facility] Encounters Date Type Department Care Team Description 08/23/2023 Clinical Communication Department of Obstetrics and Gynecology, Division of Gynecologic Oncology in [place], [place] [address] [place] [phone] Prescheduling, Provider 06/15/2023 Clinical Communication Department of Medical Genetics in [place], [place] [address] [place] [phone] Radha Burgos MLiliane, CGC 06/14/2023 3:00 PM CDT Telemedicine Department of Medical Genetics in [place], [place] [address] [place] [phone] Chilo Mario M.D. Purfeerst, Madaline T, M.SLuis, BAL[place] Genetic Susceptibility To Disease 06/11/2023 Orders Only Department of Medical Genetics in [place], [place] [address] [place] [phone] Radha Burgos M.SLuis, [place] Genetic Susceptibility To Disease (Primary Dx) from Last 3 Months Active Problems Problem Noted Date Diagnosed Date BRCA2 Gene Mutation Positive 06/15/2023 Overview: Germline genetic testing in 2023; 19-gene custom panel from [facility]. One heterozygous pathogenic variant found in the BRCA2 gene, specifically named p.L5469P (c.9004G>A). Social History Tobacco Use Types Packs/Day Years Used Date Smoking Tobacco: Never Assessed [facility] Utilities Answer Date Recorded In the past [address] [facility] electric, gas, oil, or water company threatened [...] your living situation today? I have a [facility] place to live 05/08/2023 Sex and Gender Information Value Date Recorded Sex Assigned at Female 05/08/2023 12:42 PM ORDER PACKER OR PACKAGER Gender Identity Female 05/08/2023 12:42 PM ORDER PACKER OR PACKAGER Sexual Orientation Straight 05/08/2023 12 :42 PM ORDER PACKER OR PACKAGER Plan of Treatment Upcoming Encounters Date Type Department Care Team (Late st Contact Info) Description 09/11/2023 9:15 AM CDT Comprehensive Visit Department of Obstetrics and Gynecology, Division of Gynecologic Oncology in [place], [place] [address] [place] [address] Ede Garcia M.D. [address] [place] [address] Procedures Procedure Name Priority Date/Time Associated Diagnosis Comments [email or web address] Routine 05/29/2023 1 2:11 PM CDT MISCELLANEOUS SENT OUT LAB TEST Routine 05/29/2023 12:11 PM CDT Family History Genetic Disorder Cancer Breast Family History from Last 3 Months Results * [facility] (05/29/2023 12:11 PM CDT) Test Name Custom Panel 06/08/2023 12:12 PM CDT AMBR Result SEE COMMENT 06/08/2023 12:19 PM CDT AMBR Comment: For final report, select Lab-Send Out Lab Results hyperlink below. 05/29/2023 12:1 1 PM CDT 06/08/2023 12:11 PM CDT Chilo Mario M.D. LAB [facility] ORDERABLE S [email or web address] [address] [place] [address], [facility] [address] [place] [address] * [id number] Custom Panel - Miscellaneous Test (05/29/2023 12:11 PM CDT) Test Name Custom Panel 06/08/2023 12:12 PM CDT HLS Saliva (Mouth) 05/29/2023 12 :11 PM CDT 06/08/2023 12:11 PM CDT Chilo Mario M.D. LAB MISC ORDERABLE S [facility] [address] [place] [address], [facility] [address] [place] [address] from Last 3 Months [facility] [place] [address]
== END 2023-08-22 07:36 | disposition home or self-care (01) ==
LOC: NFLDREF 08-25 20:22
PROVIDERS: PCP Internal Medicine; Referring Provider Internal Medicine; Visit Provider Internal Medicine
DX: E78.5 Hyperlipidemia, unspecified (principal)
CPT/HCPCS: 80061

== ENCOUNTER 2023-08-29 01:48 | Outpatient (CLI) | payer MEDICARE, BC, SELFPAY ==
--- OUTSIDE RECORDS SUMMARY | 2023-09-08 03:26 | XMS_ITS | Encounter Summary ---
Author Organization [facility] Address [address] [place] [address] Care Team Providers Care Dog Catcher Name Role Phone Unavailable Primary Care Provider Unavailabl e Encounter Details Date Type Department Care Team (Late st Contact Info) Description 09/03/2023 Orders Only Department of Obstetrics and Gynecology, Division of Gynecologic Oncology in [place], [place] [address] [place] [address] Lary Armstrong, RLuisNLuis BRCA2 Gene Mutation Positive (Primary Dx) Social History Tobacco Use Types Packs/Day Years Used Date Smoking Tobacco: Never Assessed [facility] Utilities Answer Date Recorded In the past 12 months has e electric, gas, oil, or water [employer] threatened to shut off services in your [...] your living situation today? I have a [facility] place to live 05/08/2023 Sex and Gender Information Value Date Recorded Sex Assigned at Female 05/08/2023 12:42 PM OPERATING ROOM SURGICAL TECHNOLOGIST Gender Identity Female 05/08/2023 12:42 PM OPERATING ROOM SURGICAL TECHNOLOGIST Sexual Orientation Straight 05/08/2023 12 :42 PM OPERATING ROOM SURGICAL TECHNOLOGIST documented as of this encounter Plan of Treatment Upcoming Encounters Date Type Department Care Team (Late st Contact Info) Description 09/11/2023 9:15 AM CDT Comprehensive Visit Department of Obstetrics and Gynecology, Division of Gynecologic Oncology in [place], [place] [address] [place] [address] Ede Garcia M.D. [address] [place] [address] Scheduled Orders Name Type Priority Associated Diagnoses Orde r Schedule Pathology Review of Outside Material Pathology and Cytology Routine BRCA2 Gene Mutation Positive Expected: 09/03/2023, Expires: 09/24/2023 documented as of this encounter Visit Diagnoses Diagnosis BRCA2 Gene Mutation Positive- Primary documented in this encounter
--- OUTSIDE RECORDS SUMMARY | 2023-09-08 03:26 | XMS_ITS | Clinical Summary ---
Author Organization [facility] er Address [address] [place] [address] Care Team Providers Care Er Nurse Name Role Phone None, Pcp Primary Care [...] Team Description 08/27/2023 4:00 PM CDT Consult [facility] Plastic Surgery [address] [place] [address] Manoj Herrera MD Encounter for breast reconstruction following mastectomy (Primary Dx) 08/27/2023 3:00 PM CDT Office Visit [facility] General Surgery [address] [place] [address] Efraín Rubio MD BRCA2 gene mutation positive (Primary Dx) 08/27/2023 Telephone [facility] General Surgery [address] [place] [address] Efraín Rubio MD Schedule combo case 08/15/2023 Telephone [facility] General Surgery [address] [place] [address] Efraín Rubio MD referral from Last 3 [...] age to complete this topic Care Teams Er Nurse Relationship Specialty Start Date End Date None, Pcp [address] [place] [place] [address] PCP - General Director Physical Therapy 08/27/23
--- OUTSIDE RECORDS SUMMARY | 2023-09-08 03:26 | XMS_ITS | Encounter Summary ---
Author Organization [facility] Address [address] [place] [address] Care Team Providers Care Guest Service Agent Name Role Phone Unavailable Primary Care Provider Unavailabl e Reason for Visit * Reason Onset Date Comments referral 08/15/2023 Encounter Details Date Type Department Care Team (Late st Contact Info) Description 08/15/2023 Telephone [facility] General Surgery [address] [place] [address] Efraín [place] [address] [place] [phone] referral Social History Tobacco Use Types [...]
--- OUTSIDE RECORDS SUMMARY | 2023-09-08 03:26 | XMS_ITS | Encounter Summary ---
Author Organization [facility] Address [address] [place] [address] Care Team Providers Care Associate Merchandise Planner Name Role Phone Unavailable Primary Care Provider Unavailabl e Encounter Details Date Type Department Care Team (Late st Contact Info) Description 06/15/2023 Clinical Communication Department of Medical Genetics in [place], [place] [address] [place] [address] Radha Burgos M.S., [facility] [address] [place] [address] Social History Tobacco Use Types Packs/Day Years Used Date Smoking Tobacco: Never Assessed [facility] Utilities Answer Date Recorded In the [...] your living situation today? I have a [facility] place to live 05/08/2023 Sex and Gender Information Value Date Recorded Sex Assigned at Female 05/08/2023 12:42 PM AIR CONDITIONING MECHANIC INDUSTRIAL Gender Identity Female 05/08/2023 12:42 PM AIR CONDITIONING MECHANIC INDUSTRIAL Sexual Orientation Straight 05/08/2023 12 :42 PM AIR CONDITIONING MECHANIC INDUSTRIAL documented as of this encounter Plan of Treatment Upcoming Encounters Date Type Department Care Team (Late st Contact Info) Description 09/11/2023 9:15 AM CDT Comprehensive Visit Department of Obstetrics and Gynecology, Division of Gynecologic Oncology in [place], [place] [address] [place] [address] Ede Garcia M.D. [address] [place] [address] documented as of this encounter Visit Diagnoses Not on filedocumented in this encounter
--- OUTSIDE RECORDS SUMMARY | 2023-09-08 03:26 | XMS_ITS | Clinical Summary ---
Author Organization [facility] Address [address] [place] [address] Care Team Providers Care Social Worker Delinquency Prevention Name Role Phone Unavailable Primary Care Provider Unavailabl e Source Comments Patient records contain information from all sites at [facility]. For routine questions regarding patient records, call [phone] during business hours, M-F 8:00 AM - 5:00 PM Central Time. Record requests for emergency care only can be directed to [phone] at any time.[facility] Active Problems Problem Noted Date Diagnosed Date BRCA2 Gene Mutation Positive 06/15/2023 Overview: Germline genetic testing in 2023; 19-gene custom panel from [facility]. One heterozygous pathogenic variant found in the BRCA2 gene, specifically named p.[id number] (c.9004G>A). Encounters Date Type Department Care Team Description 09/05/2023 Orders Only Department of Obstetrics and Gynecology, Division of Gynecologic Oncology in [place], [place] [address] [place] [address] Ernestina Babcock RJesús BRCA2 Gene Mutation Positive (Primary Dx) 09/03/2023 Orders Only Department of Obstetrics and Gynecology, Division of Gynecologic Oncology in [place], [place] [address] [place] [phone] Lary Armstrong RJesús BRCA2 Gene Mutation Positive (Primary Dx) 08/23/2023 Clinical Communication Department of Obstetrics and Gynecology, Division of Gynecologic Oncology in [place], [place] [address] [place] [address] Prescheduling, Provider 06/15/2023 Clinical Communication Department of Medical Genetics in [place], [place] [address] [place] [address] Radha Burgos M.S., [place] 06/14/2023 3:00 PM CDT Telemedicine Department of Medical Genetics in [place], [place] [address] [place] [address] Chilo Mario M.D. Purfeerst, Madaline T, M.S., [place] Genetic Susceptibility To Disease 06/11/2023 Orders Only Department of Medical Genetics in [place], [place] [address] [place] [address] Radha Burgos M.S., [place] Genetic Susceptibility To Disease (Primary Dx) [...] cancer Paternal Cousin Prostate cancer Paternal Grandfather [place] Ovarian cancer Paternal Grandmother [place] Uterine fibroid [...] Date Smoking Tobacco: Never Assessed [facility] Utilities Answer Date Recorded In the past [...] your living situation today? I have a [facility] place to live 05/08/2023 Sex and Gender Information Value Date Recorded Sex Assigned at Female 05/08/2023 12:42 PM EMR TRAINER Gender Identity Female 05/08/2023 12:42 PM EMR TRAINER Sexual Orientation Straight 05/08/2023 12 :42 PM EMR TRAINER Last Filed Vital Signs Vital Sign Reading [...] and Gynecology, Division of Gynecologic Oncology in [place], [place] [address] [place] [address] Ede Garcia M.D. [address] [place] [phone] Health Maintenance Due Date Last Done Comments [...] , 11/10/2020, Additional history exists HUONG Bello [id number]
--- OUTSIDE RECORDS SUMMARY | 2023-09-08 03:26 | XMS_ITS | Encounter Summary ---
Author Organization [facility] er Address [address] [place] [address] Care Team Providers Care Model Dresser Name Role Phone None, Pcp Primary Care Provider Unavailabl e Reason for Visit * Reason Onset Date Comments Schedule combo case 08/27/2023 Encounter Details Date Type Department Care Team (Late st Contact Info) Description 08/27/2023 Telephone [facility] General Surgery [address] [place] [address] Efraín [place] [address] [place] [phone] Schedule combo case Social History Tobacco [...] coordinate this with her primary physician in [place]. [place]. The mammogram has to be completed before the planned surgical procedure. If there is an issue with the mammogram can be completed at [facility] and please order the same indication screening mammogram, BRCA2 positive * Telephone Encounter - Karma Whititngton RN - 08/29/2023 9:[address] [...] on filedocumented in this encounter Care Teams Model Dresser Relationship Specialty Start Date End Date None, Pcp [address] [place], [place] [address] [place] [address] PCP - General Installation Supervisor 08/27/23 documented as of this encounter
--- OUTSIDE RECORDS SUMMARY | 2023-09-08 03:26 | XMS_ITS | Referral Summary ---
Author Organization [facility] Address [address] [place] [address] Care Team Providers Care Rink Rat Name Role Phone Unavailable Primary Care Provider Unavailabl e Source Comments Patient records contain information from all sites at [facility]. For routine questions regarding patient records, call [phone] during business hours, M-F 8:00 AM - 5:00 PM Central Time. Record requests for emergency care only can be directed to [phone] at any time.[facility] Encounters Date Type Department Care Team Description 09/05/2023 Orders Only Department of Obstetrics and Gynecology, Division of Gynecologic Oncology in [place], [place] [address] [place] [phone] Ernestina Babcock, R.Karli. BRCA2 Gene Mutation Positive (Primary Dx) 09/03/2023 Orders Only Department of Obstetrics and Gynecology, Division of Gynecologic Oncology in [place], [place] [address] [place] [phone] Lary Armstrong RSrikanth. BRCA2 Gene Mutation Positive (Primary Dx) 08/23/2023 Clinical Communication Department of Obstetrics and Gynecology, Division of Gynecologic Oncology in [place], [place] [address] [place] [phone] Prescheduling, Provider 06/15/2023 Clinical Communication Department of Medical Genetics in [place], [place] [address] [place] [phone] Radha Burgos M.S., [facility] 06/14/2023 3:00 PM CDT Telemedicine Department of Medical Genetics in [place], [place] [address] [place] [phone] Chilo Mario M.D. Radha Burgos M.S., [place] Genetic Susceptibility To Disease 06/11/2023 Orders Only Department of Medical Genetics in [place], [place] [address] [place] [address] Radha Burgos M.S., [place] Genetic Susceptibility To Disease (Primary Dx) from Last 3 Months Active Problems Problem Noted Date Diagnosed Date BRCA2 Gene Mutation Positive 06/15/2023 Overview: Germline genetic testing in 2023; 19-gene custom panel from [facility]. One heterozygous pathogenic variant found in the BRCA2 gene, specifically named p.[id number] (c.9004G>A). Social History Tobacco Use Types Packs/Day Years Used Date Smoking Tobacco: Never Assessed [facility] Utilities Answer Date Recorded In the past 12 months has [facility] [email or web address], gas, oil, or water [employer] threatened to shut off services in your [...] your living situation today? I have a [facility] place to live 05/08/2023 Sex and Gender Information Value Date Recorded Sex Assigned at Female 05/08/2023 12:42 PM RETAIL LOSS PREVENTION INVESTIGATOR Gender Identity Female 05/08/2023 12:42 PM RETAIL LOSS PREVENTION INVESTIGATOR Sexual Orientation Straight 05/08/2023 12 :42 PM RETAIL LOSS PREVENTION INVESTIGATOR Last Filed Vital Signs Vital Sign Reading [...] and Gynecology, Division of Gynecologic Oncology in [place], [place] [address] [place] [address] Ede Garcia M.D. [address] [place] [address]
--- OUTSIDE RECORDS SUMMARY | 2023-09-08 03:26 | XMS_ITS | Encounter Summary ---
Author Organization [facility] er Address [address] [place] [address] Care Team Providers Care Senior Clinical Data Manager Name Role Phone None, Pcp Primary Care Provider Unavailabl e Encounter Details Date Type Department Care Team (Late st Contact Info) Description 08/27/2023 4:00 PM CDT Consult [facility] Plastic Surgery [address] [place] [address] Manoj Herrera MD [address] [place] [phone] Encounter for breast reconstruction following mastectomy [...] Primary documented in this encounter Care Teams Senior Clinical Data Manager Relationship Specialty Start Date End Date None, Pcp [address] [place], [place] [address] [place] [address] PCP - General Test Grader 08/27/23 documented as of this encounter
--- OUTSIDE RECORDS SUMMARY | 2023-09-08 03:26 | XMS_ITS ---
Author Organization [facility] Address [address] [place] [address] Care Team Providers Care Liquefier Name Role Phone Unavailable Unavailable Unavailable Surgery Details Not on file Complications Check Surgery Details section. Procedure Estimated Blood Loss Check Surgery Details section. Procedure Findings Check Surgery Details section. Procedure Specimens Taken Check Surgery Details section.
--- OUTSIDE RECORDS SUMMARY | 2023-09-08 03:26 | XMS_ITS | Encounter Summary ---
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 [address] [place] [phone] [facility] Referral ID Status Reason Start Date Expiration Date Visits Re quested Visits Authorized [id number] Closed 06/11/2023 12/10/2024 1 1 Encounter Details Date Type Department Care Team (Late st Contact Info) Description 06/14/2023 3:00 PM CDT Telemedicine Department of Medical Genetics in [place], [place] [address] [place] [phone] Chilo Mario M.D. [address] [place] [phone] Radha Burgos M.S., [facility] [address] [place] [phone] Genetic Susceptibility To Disease Social History Tobacco Use Types Packs/Day Years Used Date Smoking Tobacco: Never Assessed [facility] Utilities Answer Date Recorded In [...] your living situation today? I have a [facility] place to live 05/08/2023 Sex and Gender Information Value Date Recorded Sex Assigned at Female 05/08/2023 12:42 PM DECORATING MACHINE OPERATOR Gender Identity Female 05/08/2023 12:42 PM DECORATING MACHINE OPERATOR Sexual Orientation Straight 05/08/2023 12 :42 PM DECORATING MACHINE OPERATOR documented as of this encounter Progress Notes * Radha Burgos M.S., [facility] - 06/14/2023 3:00 PM CDT Images from [...] with BRCA2 site specific analysis, available from [employer]. This custom panel included genes associated with [...] variant in the BRCA2 gene, specifically named p.F2650O (c.9004G>A). A pathogenic variant is a harmful [...] current understanding of BRCA2 and may change attendant time. The average risk to develop breast [...] reference. These guidelines are subject to change attendant time. Patients are encouraged to contact our [...] Decisions about HRT are deferred to a children's tutor or HCP with expertise in menopause management. [...] device. Consultation with a gynecologic oncologist or children's tutor with expe rtise in genetic susceptibility to [...] risk management is appropriate. According to the [place] [employer], individuals with a family history of melanoma are encouraged to: (1) have clinical skin examinations performed by a automatic pattern edger every 6-12 months, (2) perform thorough skin [...] recommendations, such as those made by the [place] [employer], do remain appropriate. HEREDITARY CANCER [...] Patients can be seen in person in [place] or via video visit. Similarly, screening/surveillance can take place in [place] or can be completed in a local health system. To be seen this clinic, patients can call [facility] at [phone] to discuss a referral. REPRODUCTIVE RISKS Preconception [...] Patients can be seen in person in [place] or via video visit. Similarly, screening/surveillance can take place in [place] or can be completed in a local health system. To be seen this clinic, patients can call [facility] at [phone] to discuss a referral. REPRODUCTIVE RISKS Preconception [...] in their area, family members can visit: [email or web address]. RESOURCES The organization [employer] (Facing Our Risk for Cancer [employer]) has the mission of improving the lives of individuals and families affected by hereditary breast and ovarian cancer. The website for thisorganization is: [email or web address].Aras. PLAN No referrals placed today. Cydney is [...] and Gynecology, Division of Gynecologic Oncology in [place], [place] [address] [place] [address] Ede Garcia M.D. 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
--- OUTSIDE RECORDS SUMMARY | 2023-09-08 03:26 | XMS_ITS | Encounter Summary ---
Author Organization [facility] er Address [address] [place] [address] Care Team Providers Care Senior Ssis Developer Name Role Phone None, Pcp Primary Care Provider Unavailabl e Reason for Visit * Reason Comments Consult Breast consult Encounter Details Date Type Department Care Team ([facility] st Contact Info) Description 08/27/2023 3:00 PM CDT Office Visit [facility] General Surgery [address] [place] [address] Efraín Rubio MD [address] [place] [phone] BRCA2 gene mutation positive (Primary Dx) [...] Insecurity: No Food Insecurity (05/08/2023) Received from [facility] Hunger Vital Sign Worried About Running Out of Food in the Last Year: Never true Ran Out of Food in the Last Year: Never true Transportation Needs: No Transportation Needs (05/08/2023) Received from [facility] PRAPARE - Transportation Lack of Transportation (Medical): No Lack of Transportation (Non-Medical): No Physical Activity: Sufficiently Active (05/08/2023) Received from [facility] Exercise Vital Sign Days of Exercise per Week: 4 days Minutes of Exercise per Session: 40 min Stress: Not on file Social Connections: Not on file Intimate Partner Violence: Not on file Housing Stability: Low Risk (05/08/2023) Received from [facility] Housing Stability What is your living [...] pending. She is scheduled to see the high school director at the [facility] early week of September to discuss the recommendations. I would also like to get a mammogram again before planning any surgical intervention. Patient wouldlike to coordinate this with her local healthcare center in [place]. Patient was informed that Iwould also like [...] documented in this encounter Care Teams Senior Ssis Developer Relationship Specialty Start Date End Date None, Pcp [address] [place] [phone] PCP - General Lead Caster Helper 08/27/23 documented as of this encounter
--- OUTSIDE RECORDS SUMMARY | 2023-09-08 03:26 | XMS_ITS | Encounter Summary ---
Author Organization [facility] Address [address] [place] [address] Care Team Providers Care Industrial Insulator Name Role Phone Unavailable Primary Care Provider Unavailabl e Encounter Details Date Type Department Care Team (Late st Contact Info) Description 09/05/2023 Orders Only Department of Obstetrics and Gynecology, Division of Gynecologic Oncology in [place], [place] [address] [place] [phone] Ernestina Babcock RJesús [address] [place] [phone] BRCA2 Gene Mutation Positive (Primary Dx) Social History Tobacco Use Types Packs/Day Years Used Date Smoking Tobacco: Never Assessed [facility] Utilities Answer Date Recorded In the [...] Sex Assigned at Female 05/08/2023 12:42 PM METALLOGRAPHIC TECHNICIAN Gender Identity Female 05/08/2023 12:42 PM METALLOGRAPHIC TECHNICIAN Sexual Orientation Straight 05/08/2023 12 :42 PM METALLOGRAPHIC TECHNICIAN documented as of this encounter Plan of Treatment Upcoming Encounters Date Type Department Care Team (Late st Contact Info) Description 09/11/2023 9:15 AM CDT Comprehensive Visit Department of Obstetrics and Gynecology, Division of Gynecologic Oncology in [place], [place] [address] [place] [phone] Ede Garcia M.D. [address] [place] [phone] Pending Results Name Type Priority Associated Diagnoses Date /Time Pathology Review of Outside Material Pathology and Cytology Routine BRCA2 Gene Mutation Positive 07/31/2023 12:00 AM CDT Scheduled Orders Name Type Priority Associated Diagnoses Orde r Schedule Pathology Review of Outside Material Pathology and Cytology Routine BRCA2 Gene Mutation Positive Expected: 09/05/2023, Expires: 09/26/2023 documented as of this encounter Visit Diagnoses Diagnosis BRCA2 Gene Mutation Positive- Primary documented in this encounter
--- OUTSIDE RECORDS SUMMARY | 2023-09-08 03:26 | XMS_ITS | Encounter Summary ---
Author Organization [facility] Address [address] [place] [address] Care Team Providers Care Research Anthropologist Name Role Phone Unavailable Primary Care Provider Unavailabl e Encounter Details Date Type Department Care Team (Late st Contact Info) Description 08/23/2023 Clinical Communication Department of Obstetrics and Gynecology, Division of Gynecologic Oncology in [place], [place] [address] [place] [phone] Prescheduling, Provider Social History Tobacco Use Types [...] Sex Assigned at Female 05/08/2023 12:42 PM COPRA PROCESSOR Gender Identity Female 05/08/2023 12:42 PM COPRA PROCESSOR Sexual Orientation Straight 05/08/2023 12 :42 PM COPRA PROCESSOR documented as of this encounter Plan of Treatment Upcoming Encounters Date Type Department Care Team (Late st Contact Info) Description 09/11/2023 9:15 AM CDT Comprehensive Visit Department of Obstetrics and Gynecology, Division of Gynecologic Oncology in [place], [place] [address] [place] [address] Ede Garcia M.D. [address] [place] [phone] documented as of this encounter Visit Diagnoses Not on filedocumented in this encounter
--- OUTSIDE RECORDS SUMMARY | 2023-09-08 03:26 | XMS_ITS | Encounter Summary ---
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 (Primary Dx) Social History Tobacco Use Types Packs/Day Years Used Date Smoking Tobacco: Never Assessed [facility] Utilities Answer Date Recorded In the [...] Sex Assigned at Female 05/08/2023 12:42 PM SYSTEMS APPLICATIONS PROGRAMMING LEAD Gender Identity Female 05/08/2023 12:42 PM SYSTEMS APPLICATIONS PROGRAMMING LEAD Sexual Orientation Straight 05/08/2023 12 :42 PM SYSTEMS APPLICATIONS PROGRAMMING LEAD documented as of this encounter Plan of Treatment Upcoming Encounters Date Type Department Care Team (Late st Contact Info) Description 09/11/2023 9:15 AM CDT Comprehensive Visit Department of Obstetrics and Gynecology, Division of Gynecologic Oncology in [place], [place] 200 [place] [address] Ede Garcia M.D. 200 [place] [phone] Scheduled Referrals Name Type Priority Associated Diagnoses Orde r Schedule Video anyplace visit Outpatient Referral Routine Genetic Susceptibility To Disease Expected: 06/11/2023, Expires: 09/09/2024 documented as of this encounter Visit Diagnoses Diagnosis 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
== END 2023-08-29 01:49 | disposition home or self-care (01) ==
LOC: AMB 09-08 03:24
PROVIDERS: PCP Internal Medicine; Visit Provider Family Medicine
DX: R06.09 Other forms of dyspnea (principal)
CPT/HCPCS: A0425; A0427

== ENCOUNTER 2023-08-29 02:11 | Emergency (ER) | payer MEDICARE, BC, SELFPAY ==
[2023-08-29 02:15] VITALS: BP 147/95; PULSE 92; RESP 16; TEMP 36.6; O2SAT 96; BMI 21.5
--- NOTE | 2023-08-29 02:15 | ED.GENADULT ---
HPI - General Adult General Time Seen by Provider: 02:15 Date Seen: 08/29/23 Chief complaint: Anxiety Stated complaint: Difficulty breathing, muscle spasms Time Seen by Provider: 08/29/23 02:15 Source: patient, EMS, RN notes reviewed and old records reviewed Mode of arrival: EMS Limitations: no limitations History of Present Illness HPI narrative: 68-year-old female who presents today with breathing concerns. Patient says she gets ?larynx spasms? that make it hard for her to breathe. Usual she can control these by pressing on her neck but tonight it did not improve and so she called the ambulance. She denies any chest pain, nausea, vomiting. Does admit to a couple of alcoholic beverages earlier in the evening. Says this tends to be related to ?environmental things. ? Related Data Home Medications ?Medication ?Instructions ?Recorded ?Confirmed calcium carbonate 600 mg-vitamin cap PO DAILY 08/17/22 08/14/23 D3 10 mcg (400 unit) capsule pantoprazole 40 mg tablet,delayed 40 mg PO QDAY 07/10/23 08/14/23 release Previous Rx's ?Medication ?Instructions ?Recorded venlafaxine 150 mg 150 mg PO QAM #90 caps 01/01/23 capsule,extended release 24 hr albuterol sulfate 90 mcg/actuation 2 puff inhalation Q4H PRN 02/27/23 aerosol inhaler (Ventolin HFA) shortness of breath or wheezing #6.7 grams alendronate 70 mg tablet 70 mg PO QWEEK #12 tabs 02/27/23 rosuvastatin 10 mg tablet 10 mg PO QDAY #90 tabs 02/27/23 Allergies Allergy/AdvReac Type Severity Reaction Status Date / Time No Known Drug Allergies Allergy Verified 08/14/23 10:12 [facility] Medical History (Updated 08/29/23 @ 02:32 by Oli Gongora MD) Lupus anticoagulant positive ?R76.0 - Raised antibody titer (ICD-10) History of rheumatic fever (07/28/09) ?Z86.79 - Personal history of other diseases of the circulatory system (ICD-10) History of renal calculi ?Z87.442 - Personal history of urinary calculi (ICD-10) History of parvovirus B19 infection (07/28/09) ?Z86.19 - Personal history of other infectious and parasitic diseases (ICD-10) History of depression ?Z86.59 - Personal history of other mental and behavioral disorders (ICD-10) Surgical History (Updated 08/09/23 @ 15:15 by Heather Torres MD) History of bilateral oophorectomy ?Z90.722 - Acquired absence of ovaries, bilateral (ICD-10) History of arthroscopic knee surgery (08/30/22) ?Z98.890 - Other specified postprocedural states (ICD-10) History of laparoscopy ?Z98.890 - Other specified postprocedural states (ICD-10) History of hysterectomy (07/28/09) ?Z90.710 - Acquired absence of both cervix and uterus (ICD-10) History of cryosurgery ?Z98.890 - Other specified postprocedural states (ICD-10) History of blepharoplasty (12/18/16) ?Z98.890 - Other specified postprocedural states (ICD-10) History of appendectomy (07/28/09) ?Z90.49 - Acquired absence of other specified parts of digestive tract (ICD-10) Family History Maternal Grandmother Breast cancer Aunt Breast cancer Family/Other Cancer Diabetes High cholesterol Myocardial infarction Stroke Father Prostate cancer Brother Prostate cancer Paternal Grandfather Prostate cancer Social History (Updated 06/12/23 @ 09:07 by Deedee Lloyd ~ [facility], [facility]) Narrative: former smoker-quit 1983 What is your current living situation?: I presently have a place to live Problems where you live: no known problems In the past 12 months, utilities in danger of being shut off: no In past 12 months, lack of transportation kept you from medical appts, meetings, work, or getting things needed for daily living: no In the past 12 mos, have been you worried that your food would run out before you had money to buy more?: never true In the past 12 mos, the food you bought just didn't last and you didn't have money to buy more?: never true Highest level of school completed/degree received: decline to answer Smoking Status: Former smoker What tobacco products do you use: cigarettes Smoking quit date/years: <= 15 years ago Do you use any of these nicotine containing products: None Second hand tobacco smoke exposure: No How often do you have a drink containing alcohol: 2-3 times a week AUDIT-C Alcohol total score: 3 Non-prescribed substance use: denies use Caffeine: Yes How often does anyone, including family, friends and others, physically hurt you: never How often does anyone, including family, friends and others, insult or talk down to you: never How often does anyone, including family, friends and others, threaten you with harm: never How often does anyone, including family, friends and others, scream or curse at you: never Little interest or pleasure in doing things: not at all Feeling down, depressed, or hopeless: not at all service: No Exam Narrative: Exam Narrative: General: Well-developed and well-nourished, no acute distress Head: Atraumatic and normocephalic Eyes: Pupils are equal reactive, extraocular motions intact, conjunctiva clear ENT: External nose and ears are normal, posterior pharynx without erythema or exudate Neck: No midline cervical tenderness, full spontaneous range of motion the neck, trachea midline, no adenopathy Heart: Regular rate and rhythm no murmurs or thrills Lungs: Clear to auscultation bilaterally without wheezes or crackles. When patient is sleeping, nonlabored respirations with no snoring or stridor. When talking, she will have some inspiratory stridor occasionally but this clears when answering questions and when distracted. Abdomen: Soft, nontender, nondistended with active bowel sounds Musculoskeletal: No tenderness, deformity, or edema Neurologic: Awake, alert, and oriented x3, no gross focal neurologic deficits, cranial nerves intact as tested Psych: Mood and affect are appropriate Skin: No rashes Const: Vital Signs, click to edit/add: Vital Signs - 24 hr 08/29/23 02:15 08/29/23 03:27 Temperature 97.8 F Pulse Rate [Pulse Oximeter] 92 90 Respiratory Rate 16 16 Blood Pressure [Le ft Upper Arm] 147/95 H Pulse Oximetry 96 93 Oxygen Delivery Me thod Room Air Room Air Course Course ED Course: Patient seen and examined, reviewed prior record including office visit from December 2022 which was for mood concerns with history of depression and anxiety, was started on venlafaxine at that visit. Patient presents today with ?laryngeal spasm?. On my initial exam, patient was sleeping with no respiratory distress, no snoring or stridor. On waking, she starts having stridor the but this goes away when she is answering questions or distracted. She was given Ativan per EMS which should help with the [place] spasm. Will be observed in the emergency department and plan for discharge. Reevaluation(s) Time of Reevaluation #1: 04:17 Reevaluation #1: Patient recheck, she is resting comfortably and has no further symptoms. Stable for discharge Vital Signs Vital signs: Initial Vital Signs Temperature 97.8 F 08/29/23 02:15 Temperature Source Temporal Artery Scan 08/29/23 02:15 Pulse Rate 92 08/29/23 02:15 Respiratory Rate 16 08/29/23 02:15 Respiratory Effort Spontaneous, Tachypnea 08/29/23 02:15 Respiratory Depth Normal 08/29/23 02:15 Respiratory Pattern Tachypnea 08/29/23 02:15 Blood Pressure 147/95 H 08/29/23 02:15 Blood Pressure Mean 112 H 08/29/23 02:15 Blood Pressure Position Sitting 08/29/23 02:15 Pulse Oximetry 96 08/29/23 02:15 Oxygen Delivery Method Room Air 08/29/23 02:15 Vital Signs Temperature 97.8 F 08/29/23 02:15 Pulse Rate 92 08/29/23 02:15 Respiratory Rate 16 08/29/23 02:15 Blood Pressure 147/95 H 08/29/23 02:15 Pulse Oximetry 96 08/29/23 02:15 Oxygen Delivery Method Room Air 08/29/23 02:15 Temperature 97.8 F 08/29/23 02:15 Pulse Rate 90 08/29/23 03:27 Respiratory Rate 16 08/29/23 03:27 Blood Pressure 147/95 H 08/29/23 02:15 Pulse Oximetry 93 08/29/23 03:27 Oxygen Delivery Method Room Air 08/29/23 03:27 Discharge Plan Discharge Clinical Impression: Laryngeal spasm Patient Disposition: Home, Self-Care Condition: Stable Instructions: Laryngospasm (DC) Additional Instructions: Follow-up with your primary care doctor and consider ENT follow-up as well Activity Level: No Restrictions Discharge Diet: Regular Prescriptions: No Action venlafaxine 150 mg capsule,extended release 24hr 150 mg PO QAM Qty: 90 3RF calcium carbonate-vitamin D3 600 mg-10 mcg (400 unit) capsule PO DAILY alendronate 70 mg tablet 70 mg PO QWEEK Qty: 12 3RF rosuvastatin 10 mg tablet 10 mg PO QDAY Qty: 90 3RF albuterol sulfate [Ventolin HFA] 90 mcg/actuation HFA aerosol inhaler 2 puff inhalation Q4H PRN (Reason: shortness of breath or wheezing) Qty: 6.7 11RF pantoprazole 40 mg tablet,delayed release (DR/EC) 40 mg PO QDAY Follow Up/Referrals: Heather Torres MD [Primary Care Provider] - Stand Alone Forms: [employer] Info Instructions
--- OUTSIDE RECORDS SUMMARY | 2023-08-29 02:35 | XMS_ITS | Encounter Summary ---
Author Organization [facility] Address [address] [place] [address] Care Team Providers Care Personal Care Attendant Name Role Phone Unavailable Primary Care Provider Unavailabl e Reason for Referral * Outpatient (Routine) - Closed Specialty Diagnoses / Procedures Referred By Alicja leal Referred To Contact Video Medicine Diagnoses Genetic Susceptibility To Disease Chiol Mario M.D. [address] [place] [phone] [facility] Referral ID Status Reason Start Date Expiration Date Visits Re quested Visits Authorized [id number] Closed 06/11/2023 12/10/2024 1 1 Encounter Details Date Type Department Care Team (Late st Contact Info) Description 06/11/2023 Orders Only Department of Medical Genetics in [place], [place] [address] [place] [phone] Radha Burgos M.S., [facility] [address] [place] [phone] Genetic Susceptibility To Disease (Primary Dx) Social History Tobacco Use Types Packs/Day Years Used Date Smoking Tobacco: Never Assessed [facility] Utilities Answer Date Recorded In the [...] your living situation today? I have a [facility] place to live 05/08/2023 Sex and Gender Information Value Date Recorded Sex Assigned at Female 05/08/2023 12:42 PM CRAFT COORDINATOR Gender Identity Female 05/08/2023 12:42 PM CRAFT COORDINATOR Sexual Orientation Straight 05/08/2023 12 :42 PM CRAFT COORDINATOR documented as of this encounter Plan of Treatment Upcoming Encounters Date Type Department Care Team (Late st Contact Info) Description 09/11/2023 9:15 AM CDT Comprehensive Visit Department of Obstetrics and Gynecology, Division of Gynecologic Oncology in [place], [place] 200 [place] [address] Ede Garcia M.D. 200 [place] [address] Scheduled Referrals Name Type Priority Associated Diagnoses Orde r Schedule Video anyplace visit Outpatient Referral Routine Genetic Susceptibility To Disease Expected: 06/11/2023, Expires: 09/09/2024 documented as of this encounter Visit Diagnoses Diagnosis 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
--- OUTSIDE RECORDS SUMMARY | 2023-08-29 02:35 | XMS_ITS | Encounter Summary ---
Author Organization [facility] Address [address] [place] [address] Care Team Providers Care Military Technology Manager Name Role Phone Unavailable Primary Care Provider Unavailabl e Encounter Details Date Type Department Care Team (Late st Contact Info) Description 06/15/2023 Clinical Communication Department of Medical Genetics in [place], [place] [address] [place] [address] Radha Burgos M.S., [facility] [address] [place] [address] Social History Tobacco Use Types Packs/Day Years Used Date Smoking Tobacco: Never Assessed [facility] Utilities Answer Date Recorded In [...] your living situation today? I have a [facility] place to live 05/08/2023 Sex and Gender Information Value Date Recorded Sex Assigned at Female 05/08/2023 12:42 PM COMPOSITOR APPRENTICE Gender Identity Female 05/08/2023 12:42 PM COMPOSITOR APPRENTICE Sexual Orientation Straight 05/08/2023 12 :42 PM COMPOSITOR APPRENTICE documented as of this encounter Plan of Treatment Upcoming Encounters Date Type Department Care Team (Late st Contact Info) Description 09/11/2023 9:15 AM CDT Comprehensive Visit Department of Obstetrics and Gynecology, Division of Gynecologic Oncology in [place], [place] [address] [place] [address] Ede Garcia M.D. [address] [place] [address] documented as of this encounter Visit Diagnoses Not on filedocumented in this encounter
--- OUTSIDE RECORDS SUMMARY | 2023-08-29 02:35 | XMS_ITS | Encounter Summary ---
Author Organization [facility] Address [address] [place] [address] Care Team Providers Care Career Resource Specialist Name Role Phone Unavailable Primary Care Provider Unavailabl e Reason for Visit * Outpatient (Routine) - Closed Specialty Diagnoses / Procedures Referred By Alicja leal Referred To Contact Video Medicine Diagnoses Genetic Susceptibility To Disease Chilo Mario M.D. [address] [place] [phone] [facility] Referral ID Status Reason Start Date Expiration Date Visits Re quested Visits Authorized [id number] Closed 06/11/2023 12/10/2024 1 1 Encounter Details Date Type Department Care Team (Late st Contact Info) Description 06/14/2023 3:00 PM CDT Telemedicine Department of Medical Genetics in [place], [place] [address] [place] [phone] Chilo Mario M.D. [address] [place] [phone] Radha Burgos M.S., [facility] [address] [place] [phone] Genetic Susceptibility To Disease Social History Tobacco Use Types Packs/Day Years Used Date Smoking Tobacco: Never Assessed [facility] Utilities Answer Date Recorded In the [...] Sex Assigned at Female 05/08/2023 12:42 PM BOILER SHOP MECHANIC Gender Identity Female 05/08/2023 12:42 PM BOILER SHOP MECHANIC Sexual Orientation Straight 05/08/2023 12 :42 PM BOILER SHOP MECHANIC documented as of this encounter Progress Notes * Radha Burgos M.S., [facility] - 06/14/2023 3:00 PM CDT Images from [...] with BRCA2 site specific analysis, available from [employer]. This custom panel included genes associated with [...] variant in the BRCA2 gene, specifically named p.E2639S (c.9004G>A). A pathogenic variant is a harmful [...] the current understanding of BRCA2 and may manager change time. The average risk to develop breast [...] for reference. These guidelines are subject to manager change time. Patients are encouraged to contact our [...] Decisions about HRT are deferred to a cement based materials pump tender or HCP with expertise in menopause management. [...] device. Consultation with a gynecologic oncologist or cement based materials pump tender with expe rtise in genetic susceptibility to [...] risk management is appropriate. According to the [place] [employer], individuals with a family history of melanoma are encouraged to: (1) have clinical skin examinations performed by a company laborer every 6-12 months, (2) perform thorough skin [...] recommendations, such as those made by the [place] [employer], do remain appropriate. [facility] ([facility]) We discussed the option of being seen by a nurse practitioner or physician in the Department of [facility]' Hereditary Cancer Clinic for medical management of BRCA2 cancer risks. The [facility] is dedicated to providing care and support to patients with hereditary risk of developing certain types of cancers. At the [facility], a variety of services are offered, including an annual visit addressing screening recommendations for the patient's specific needs and referral to specialties. Patients can be seen in person in [place] or via video visit. Similarly, screening/surveillance can take place in [place] or can be completed in a local health system. To be seen this clinic, patients can call [facility] at [phone] to discuss a referral. REPRODUCTIVE RISKS Preconception [...] limitations of this option. [facility] ([facility]) We discussed the option of being seen by a nurse practitioner or physician in the Department of [facility]' Hereditary Cancer Clinic for medical management of BRCA2 cancer risks. The [facility] is dedicated to providing care and support to patients with hereditary risk of developing certain types of cancers. At the [facility], a variety of services are offered, including an annual visit addressing screening recommendations for the patient's specific needs and referral to specialties. Patients can be seen in person in [place] or via video visit. Similarly, screening/surveillance can take place in [place] or can be completed in a local health system. To be seen this clinic, patients can call [facility] at [phone] to discuss a referral. REPRODUCTIVE RISKS Preconception [...] in their area, family members can visit: [email or web address]. RESOURCES The organization [employer] (Facing Our Risk for Cancer [employer]) has the mission of improving the lives of individuals and families affected by hereditary breast and ovarian cancer. The website for thisorganization is: [email or web address].Mouth Foods. PLAN No referrals placed today. Cydney is [...] and Gynecology, Division of Gynecologic Oncology in [place], [place] [address] [place] [address] Ede Garcia M.D. 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
--- OUTSIDE RECORDS SUMMARY | 2023-08-29 02:35 | XMS_ITS | Encounter Summary ---
Author Organization [facility] er Address [address] [place] [address] Care Team Providers Care Worker'S Compensation Claims Examiner Name Role Phone None, Pcp Primary Care Provider Unavailabl e Encounter Details Date Type Department Care Team (Late st Contact Info) Description 08/27/2023 4:00 PM CDT Consult [facility] Plastic Surgery [address] [place] [id number] Manoj Herrera MD [address] [place] [phone] Encounter for breast reconstruction following mastectomy (Primary Dx) Social History Tobacco Use Types Packs/Day Years Used Date Smoking Tobacco: Former Cigarettes Smokeless Tobacco: Never Alcohol Use Standard Drinks/Week Comments Yes 0 (1 standard drink = 0.6 oz pur e alcohol) 1-2 per week Sex and Gender Information Value Date Recorded Sex Assigned at Not on file Gender Identity Not on file Sexual Orientation Not on file documented as of this encounter Progress Notes * Manoj Herrera MD - 08/27/2023 4:00 PM CDT This is a 8 years old lady that I am seeing today in consultation to explore option for breast reconstruction after prophylactic risk reducing mastectomy. This lady has a significant family history of breast cancer she is BRCA2 positive approximately 4 weeks ago she did have oophorectomy, did the visit today with Dr. Rubio for mastectomy and now is here to explore option of immediate breast reconstruction. No other contributory medical surgical history. On my exam today's alert pleasant lady, grade 3 ptosis breast, distance from nipple to sternal notch on the right 27 on the left 28 cm base approximately 16 cm, I do not feel any suspicious mass in either breast, nipple sensation bilaterally present, BMI is 22.8. Assessment plan: We discussed autologous versus implant-based reconstruction in this lady is interested to do implant-based reconstruction. Interestingly we did a similar procedure to her sister mark. I did show her in front of the mirror scar position we talk about reinforcing inferior pole with AlloDerm she would like to get smaller and I believe she be in a [address] us she understands she will have drainage tubes all dissolvable stitches will wait 6 months after that come back to do the nipple-areolar reconstruction and areolar tattooing. Return discussed recovery time, downtime, 1 night in the hospital, we talked about possible complications from infection, bleeding, DVT, pulmonary embolism fat embolism given possibility to we talk about implant specific complication from capsular contracture and implant extrusion, implant malfunction. At this point we will obtain photographs, will preapproved this work through insurance and proceed to do it betweenDr. Rubio and myself 3 and half hours. All questions answered. We spent together 1 hour in the previsit review, exam and counseling and postvisit coordination. documented in this encounter Plan of Treatment Scheduled Procedures Name Priority Associated Diagnoses Date/Ti me MASTECTOMY BILATERAL BRCA2 gene mutation positive documented as of this encounter Visit Diagnoses Diagnosis Encounter for breast reconstruction following mastectomy- Primary documented in this encounter Care Teams Worker'S Compensation Claims Examiner Relationship Specialty Start Date End Date None, Pcp [address] [place], [place] [address] [place] [address] PCP - General Manager Building 08/27/23 documented as of this encounter
--- OUTSIDE RECORDS SUMMARY | 2023-08-29 02:35 | XMS_ITS | Encounter Summary ---
Author Organization [facility] er Address [address] [place] [address] Care Team Providers Care Customer Experience Associate Name Role Phone None, Pcp Primary Care Provider Unavailabl e Reason for Visit * Reason Comments Consult Breast consult Encounter Details Date Type Department Care Team ([facility] st Contact Info) Description 08/27/2023 3:00 PM CDT Office Visit [facility] General Surgery [address] [place] [address] Efraín Rubio MD [address] [place] [phone] BRCA2 gene mutation positive (Primary Dx) Social History Tobacco Use Types [...] on file documented as of this encounter Last Filed Vital Signs Vital Sign Reading Time Taken Comments Blood Pressure 148/80 08/27/2023 3:11 PM CDT Pulse 77 08/27/2023 3:04 PM CDT Temperature 36.8 ??C (98.2 ??F) 08/27/2023 3:04 PM CD T Respiratory Rate 16 08/27/2023 3:04 PM CDT Oxygen Saturation 99% 08/27/2023 3:04 PM CDT Inhaled Oxygen Concentration - - Weight 60.3 kg (132 lb 14.4 oz) 08/27/2023 3:04 PM CDT Height 162.6 cm (5' 4) 08/27/2023 3:04 PM CDT Body Mass Index 22.81 08/27/2023 3:04 PM CDT documented in this encounter Patient Instructions * Patient Instructions* Efraín Rubio MD - 08/27/2023 3:00 PM CDT Chief complaints: BRCA2 positive gene mutation Discussed the findings with the patient and options. Plan: Bilateral risk-reducing mastectomy with reconstruction Preoperative mammogram Preoperative clearance Await final pathology from salpingo-oophorectomy Discussed postoperative care restrictions and risk reduction. documented in this encounter Progress Notes * Efraín Rubio MD - 08/27/2023 3:00 PM CDT Consultation Chief Complaint Patient presents with Consult Breast consult CONSULTING PHYSICIAN: Dr. Heather Torres HPI:Cydney Marlow is an 68 y.o. female. Patient is here this afternoon for consultation further recommendation after recently undergoing genetic testing and was found to have BRCA2 gene mutation positive. Patient's niece underwent a blood study and was found to be gene positive which led to other familymembers being diagnosed with BRCA 2 gene positive mutation. Her sister recently underwent a risk reducing bilateral mastectomy with reconstruction. Patient is here this afternoon after having researched this extensively to discuss the options and to proceed with risk reducing mastectomy. Patient denies any breast pain no nipple discharge she is on no hormone replacement therapy. She has been 2 different times and normal vaginal delivery and did breast-feed her children. The age of menarche was at age 15. She has been having regular mammograms and her last mammogram was in November 2022. She has dense breast. No prior breast biopsies. She is not a diabetic nonhypertensive does not smoke is not on any anticoagulation drinks only on asocial basis. Her family history is significant for breast cancer in her knees, maternal aunt, paternal aunt as well as a grandmother. Past surgical history includes an appendectomy as a young child stool right lower paramedian incision, hysterectomy, as well as a recent bilateral salpingo- oophorectomy and the final pathology on thefallopian tube is still pending. Review of Systems No fever no chills no shortness of breath no chest pain no cough no unusual loss of weight or appetite Patient Active Problem List Diagnosis BRCA2 gene mutation positive Past Surgical History: Procedure Laterality Date APPENDECTOMY 1975 LAPAROTOMY SALPINGO OOPHORECTOMY Bilateral 07/2023 MOUTH SURGERY 07/2022 Family History Problem Relation Age of Onset Osteoarthritis Mother Cancer Father Cancer Brother Stroke Brother Cancer Mother's Sister Cancer Maternal Grandfather Heart failure Maternal Grandfather Cancer Cousin Social History Socioeconomic History Marital status: Spouse name: Not on file Number of children: Not on file Years of education: Not on file Highest education level: Not on file Occupational History Not on file Tobacco Use Smoking status: Former Types: Cigarettes Smokeless tobacco: Never Vaping Use Vaping status: Never Used Substance and Sexual Activity Alcohol use: Yes Comment: 1-2 per week Drug use: Never Sexual activity: Defer Other Topics Concern Not on file Social History Narrative Not on file Social Determinants of Health Financial Resource Strain: Not on file Food Insecurity: No Food Insecurity (05/08/2023) Received from [facility] Hunger Vital Sign Worried About Running Out of Food in the Last Year: Never true Ran Out of Food in the Last Year: Never true Transportation Needs: No Transportation Needs (05/08/2023) Received from [facility] PRAPARE - Transportation Lack of Transportation (Medical): No Lack of Transportation (Non-Medical): No Physical Activity: Sufficiently Active (05/08/2023) Received from [facility] Exercise Vital Sign Days of Exercise per Week: 4 days Minutes of Exercise per Session: 40 min Stress: Not on file Social Connections: Not on file Intimate Partner Violence: Not on file Housing Stability: Low Risk (05/08/2023) Received from [facility] Housing Stability What is your living situation today?: I have a steady place to live No Known Allergies Current Outpatient Medications: alendronate (FOSAMAX) 70 MG tablet, Take 1 tablet (70 mg total) by mouth every 7 (seven) days, Disp: , Rfl: pantoprazole (PROTONIX) 40 MG EC tablet, Take 1 tablet (40 mg total) by mouth 1 (one) time each day, Disp: , Rfl: rosuvastatin (CRESTOR) 10 MG tablet, Take 1 tablet (10 mg total) by mouth 1 (one) time each day, Disp: , Rfl: venlafaxine XR (EFFEXOR-XR) 150 MG 24 hr capsule, Take 1 capsule (150 mg total) by mouth 1 (one) time each day in the morning, Disp: , Rfl: calcium citrate-vitamin D 157.5-125 mg-unit, Take by mouth 1 (one) time each day, Disp: , Rfl: OBJECTIVE: Visit Vitals BP 148/80 Pulse 77 Temp 36.8 ??C (98.2 ??F) (Temporal) Resp 16 SpO2: 99 % Physical Examination: General: Patient is well-appearing Neuro: Alert and oriented to time, space, and person, no obvious deficits HEENT: Head atraumatic, normocephalic, anicteric sclera No cervical lymphadenopathy no supraclavicular lymphadenopathy Respiratory: Non-labored breathing Breast exam This was a chaperoned exam. Bilateral nipple and skin complex is normal. No palpable abnormality oneither breast. Lymphatic exam No lymphadenopathy in either axilla Abdomen: Nonobese, nondistended well-healed right lower paramedian incision Skin/Extremities: Non-cyanotic, well-perfused Psychiatric: Normal affect Imaging: Mammogram from November 2022 was unremarkable ASSESSMENT: BRCA2 gene positive mutation PLAN: Discussed the finding with the patient. Discussed the pathophysiology of being positive status and the lifetime risk of developing breast and ovarian cancer. Patient has already had a salpingo-oophorectomy. Discussed the options with the patient including close observation and follow-up versus the role of risk- reducing mastectomy. Patient is quite clear about her decision to proceed with this risk reducing mastectomy. Discussed with the patient that the risk reduction is nearly 90% but never 100%. Discussed the aims, the goals, the risk, the alternatives and the complication not limited to infection, bleeding, the need for drain placement. Patient is interested in immediate reconstruction and is scheduled to meet with Dr. Herrera later this week. As per the patient the final pathology of one of the fallopian tubes is suspicious and the final pathology is still pending. She is scheduled to see the bindery machine setter at the [facility] early week of September to discuss the recommendations. I would also like to get a mammogram again before planning any surgical intervention. Patient wouldlike to coordinate this with her local healthcare center in [place]. Patient was informed that Iwould also like to wait for this to be completed as well as the evaluation by Dr. Herrera and that the date of surgery can then be decided following the above. Multiple questions were answered. We will wait for the above evaluations to be completed and the input and then proceed as indicated. Efraín Rubio MD documented in this encounter Plan of Treatment Scheduled Procedures Name Priority Associated Diagnoses Date/Ti me MASTECTOMY BILATERAL BRCA2 gene mutation positive documented as of this encounter Visit Diagnoses Diagnosis BRCA2 gene mutation positive- Primary documented in this encounter Care Teams Customer Experience Associate Relationship Specialty Start Date End Date None, Pcp [address] [place] [address] PCP - General Riding Silks Custodian 08/27/23 documented as of this encounter
--- OUTSIDE RECORDS SUMMARY | 2023-08-29 02:35 | XMS_ITS | Encounter Summary ---
Author Organization [facility] er Address [address] [place] [address] Care Team Providers Care Sat Tutor Name Role Phone None, Pcp Primary Care Provider Unavailabl e Reason for Visit * Reason Onset Date Comments Schedule combo case 08/27/2023 Encounter Details Date Type Department Care Team (Late st Contact Info) Description 08/27/2023 Telephone [facility] General Surgery [address] [place] [phone] E[place] [address] [place] [phone] Schedule combo case Social History Tobacco Use Types Packs/Day Years Used Date Smoking Tobacco: Former Cigarettes Smokeless Tobacco: Never Alcohol Use Standard Drinks/Week Comments Yes 0 (1 standard drink = 0.6 oz pur e alcohol) 1-2 per week Sex and Gender Information Value Date Recorded Sex Assigned at Not on file Gender Identity Not on file Sexual Orientation Not on file documented as of this encounter Miscellaneous Notes * Telephone Encounter - Karma Whittington RN - 08/27/2023 4:00 PM CDT Patient saw Dr. Rubio today. She will see Dr. Herrera this afternoon as well. She needs to have amammogram done (at her local healthcare facility) and we need results back from her oophorectomy first. Then will work on scheduling a combo case for mastectomy and reconstruction. documented in this encounter Plan of Treatment Scheduled Procedures Name Priority Associated Diagnoses Date/Ti me MASTECTOMY BILATERAL BRCA2 gene mutation positive documented as of this encounter Visit Diagnoses Not on filedocumented in this encounter Care Teams Sat Tutor Relationship Specialty Start Date End Date None, Pcp [address] [place] [address] PCP - General Electrical And Instrumentation Manager 08/27/23 documented as of this encounter
--- OUTSIDE RECORDS SUMMARY | 2023-08-29 02:35 | XMS_ITS | Encounter Summary ---
Author Organization [facility] Address [address] [place] [address] Care Team Providers Care Hide Inspector And Sorter Name Role Phone Unavailable Primary Care Provider Unavailabl e Encounter Details Date Type Department Care Team (Late st Contact Info) Description 08/23/2023 Clinical Communication Department of Obstetrics and Gynecology, Division of Gynecologic Oncology in [place], [place] [address] [place] [address] Prescheduling, Provider Social History Tobacco Use Types Packs/Day Years Used Date Smoking Tobacco: Never Assessed [facility] Utilities Answer Date Recorded [...] your living situation today? I have a [facility] place to live 05/08/2023 Sex and Gender Information Value Date Recorded Sex Assigned at Female 05/08/2023 12:42 PM RUBBER MOLD MAKER Gender Identity Female 05/08/2023 12:42 PM RUBBER MOLD MAKER Sexual Orientation Straight 05/08/2023 12 :42 PM RUBBER MOLD MAKER documented as of this encounter Plan of Treatment Upcoming Encounters Date Type Department Care Team (Late st Contact Info) Description 09/11/2023 9:15 AM CDT Comprehensive Visit Department of Obstetrics and Gynecology, Division of Gynecologic Oncology in [place], [place] [address] [place] [address] Ede Garcia M.D. [address] [place] [address] documented as of this encounter Visit Diagnoses Not on filedocumented in this encounter
--- OUTSIDE RECORDS SUMMARY | 2023-08-29 02:35 | XMS_ITS | Clinical Summary ---
Author Organization [facility] Address [address] [place] [address] Care Team Providers Care Motor Vehicle Or Caravan Salesperson Name Role Phone Unavailable Primary Care Provider Unavailabl e Source Comments Patient records contain information from all sites at [facility]. For routine questions regarding patient records, call [phone] during business hours, M-F 8:00 AM - 5:00 PM Central Time. Record requests for emergency care only can be directed to [phone] at any time.[facility] Active Problems Problem Noted Date Diagnosed Date BRCA2 Gene Mutation Positive 06/15/2023 Overview: Germline genetic testing in 2023; 19-gene custom panel from [facility]. One heterozygous pathogenic variant found in the BRCA2 gene, specifically named [id number] ([id number]). Encounters Date Type Department Care Team Description 08/23/2023 Clinical Communication Department of Obstetrics and Gynecology, Division of Gynecologic Oncology in [place], [place] [address] [place] [address] Prescheduling, Provider 06/15/2023 Clinical Communication Department of Medical Genetics in [place], [place] [address] [place] [address] Radha Burgos MLiliane, [facility] 06/14/2023 3:00 PM CDT Telemedicine Department of Medical Genetics in [place], [place] [address] [place] [address] Chilo Mario M.D. 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 I have a [facility] place to live 05/08/2023 Sex and Gender Information Value Date Recorded Sex Assigned at Female 05/08/2023 12:42 PM GENERAL ACTIVITIES THERAPIST Gender Identity Female 05/08/2023 12:42 PM GENERAL ACTIVITIES THERAPIST Sexual Orientation Straight 05/08/2023 12 :42 PM GENERAL ACTIVITIES THERAPIST Last Filed Vital Signs Vital Sign Reading Time Taken Comments Blood Pressure - - Pulse - - Temperature - - Respiratory Rate - - Oxygen Saturation - - Inhaled Oxygen Concentration - - Weight 59 kg (130 lb 2 oz) 08/28/2023 8:49 AM CD T Height 160 cm (5' 3) 08/28/2023 8:49 AM CDT Body Mass Index 23.05 08/28/2023 8:49 AM CDT Plan of Treatment Upcoming Encounters Date Type Department Care Team (Late st Contact Info) Description 09/11/2023 9:15 AM CDT Comprehensive Visit Department of Obstetrics and Gynecology, Division of Gynecologic Oncology in [place], [place] [address] [place] [address] Ede Garcia M.D. [address] [place] [address] Health Maintenance Due Date Last Done Comments [...] Procedure Name Priority Date/Time Associated Diagnosis Comments [facility] Routine 05/29/2023 1 2:11 PM CDT MISCELLANEOUS SENT OUT LAB TEST Routine 05/29/2023 12:11 PM CDT Family History Genetic Disorder Cancer Breast Family History from Last 3 Months Results * [facility] (05/29/2023 12:11 PM CDT) Test Name Custom Panel 06/08/2023 12:12 PM CDT [facility] Result SEE COMMENT 06/08/2023 12:19 PM CDT [facility] Comment: For final report, select Lab-Send Out Lab Results hyperlink below. 05/29/2023 12:1 1 PM CDT 06/08/2023 12:11 PM CDT Chilo Mario M.D. LAB MISC ORDERABLE S [facility] [address] [place] [address], [place] [facility] [address] [place] [address] * [id number] [facility] Custom Panel - Miscellaneous Test (05/29/2023 12:11 PM CDT) Test Name Custom Panel 06/08/2023 12:12 PM CDT [facility] Saliva (Mouth) 05/29/2023 12 :11 PM CDT 06/08/2023 12:11 PM CDT Chilo Mario M.D. LAB MISC ORDERABLE S [facility] [address] [place] [address], [facility] [address] [place] [address] from Last [address] Cavazos, [place] [address]
--- OUTSIDE RECORDS SUMMARY | 2023-08-29 02:35 | XMS_ITS ---
Author Organization [facility] Address [address] [place] [address] Care Team Providers Care Service Representative Name Role Phone Unavailable Unavailable Unavailable Surgery Details Not on file Complications Check Surgery Details section. Procedure Estimated Blood Loss Check Surgery Details section. Procedure Findings Check Surgery Details section. Procedure Specimens Taken Check Surgery Details section.
--- OUTSIDE RECORDS SUMMARY | 2023-08-29 02:35 | XMS_ITS | Clinical Summary ---
Author Organization [facility] er Address [address] [place] [address] Care Team Providers Care Site Lead Name Role Phone None, Pcp Primary Care Provider Unavailabl e Allergies No known active allergies Medications Medication Sig Dispensed Refills Start Date End Date Status alendronate (FOSAMAX) 70 MG tablet Take 1 tablet (70 mg total) by mouth every 7 (seven) days 06/15/2023 Active pantoprazole (PROTONIX) 40 MG EC tablet Take 1 tablet (40 mg total) by mouth 1 (one) time each day 07/23/2023 Active rosuvastatin (CRESTOR) 10 MG tablet Take 1 tablet (10 mg total) by mouth 1 (one) time each day 05/25/2023 Active venlafaxine XR (EFFEXOR-XR) 150 MG 24 hr capsule Take 1 capsule (150 mg total) by mouth 1 (one) time each day in the morning 06/28/2023 Active calcium citrate-vitamin D 157.5-125 mg-unit Take by mouth 1 (one) time each day Active Active Problems Problem Noted Date Diagnosed Date BRCA2 gene mutation positive 08/27/2023 Encounters Date Type Department Care Team Description 08/27/2023 4:00 PM CDT Consult [facility] [address] [place] [address] Manoj Herrera MD Encounter for breast reconstruction following mastectomy (Primary Dx) 08/27/2023 3:00 PM CDT Office Visit [facility] [address] [place] [address] Efraín Rubio MD BRCA2 gene mutation positive (Primary Dx) 08/27/2023 Telephone [facility] [address] [place] [address] Efraín Rubio MD Schedule combo case 08/15/2023 Telephone [facility] [address] [place] [address] Efraín Rubio MD referral from Last 3 Months Family History Medical History Relation Comments Cancer Brother Stroke Brother Cancer Cousin Cancer Father Cancer Maternal Grandfather Heart failure Maternal Grandfather Osteoarthritis Mother Cancer Mother's Sister Relation Status Comments Brother Cousin Father Maternal Grandfather Mother Mother's Sister Social History Tobacco Use Types Packs/Day Years Used Date Smoking Tobacco: Former Cigarettes Smokeless Tobacco: Never Alcohol Use Standard Drinks/Week Comments Yes 0 (1 standard drink = 0.6 oz pur e alcohol) 1-2 per week Sex and Gender Information Value Date Recorded Sex Assigned at Not on file Gender Identity Not on file Sexual Orientation Not on file Last Filed Vital Signs Vital Sign Reading [...] Mass Index 22.81 08/27/2023 3:04 PM CDT Plan of Treatment Scheduled Procedures Name Priority Associated Diagnoses Date/Ti me MASTECTOMY BILATERAL BRCA2 gene mutation positive Health Maintenance Due Date Last Done Comments Bone Density Scan 1957 CT Colonography 1957 Colonoscopy 1957 Colorectal Cancer Screening 1957 FIT-DNA 1957 Mammogram 1957 Sigmoidoscopy 1957 iFOBT 1957 Fall Risk Performed 05/17/1975 Medicare Annual Wellness Visit (AWV) 05/17/1975 Pneumococcal Vaccine: 65+ Years (1 of 1 - PCV) 2022 Influenza Vaccine (Season Ended) 2023 12/07/2021, 11/10/2020, 11/13/2019, Additional history exists DTaP,Tdap,and Td Vaccines (3 - Td or Tdap) 11/21/2032 11/21/2022, 04/03/2012 Zoster Vaccines Completed 02/20/2019, 12/02/2018 COVID-19 Vaccine Completed 12/08/2022, 01/2022, 01/06/2021, Additional history exists HPV Vaccines Aged Out No longer eligi ble based on patient's age to complete this topic Care Teams Site Lead Relationship Specialty Start Date End Date None, Pcp [address] [place] [address] PCP - General House Designer 08/27/23
--- OUTSIDE RECORDS SUMMARY | 2023-08-29 02:35 | XMS_ITS | Encounter Summary ---
Author Organization [facility] er Address [address] [place] [address] Care Team Providers Care Automatic Spinning Lathe Operator Name Role Phone Unavailable Primary Care Provider Unavailabl e Reason for Visit * Reason Onset Date Comments referral 08/15/2023 Encounter Details Date Type Department Care Team (Late st Contact Info) Description 08/15/2023 Telephone [facility] General Surgery [address] [place] [address] E[place] [address] [place] [phone] referral Social History Tobacco Use Types Packs/Day Years Used Date Smoking Tobacco: Never Assessed Sex and Gender Information Value Date Recorded Sex Assigned at Not on file Gender Identity Not on file Sexual Orientation Not on file documented as of this encounter Miscellaneous Notes * Telephone Encounter - Portia Pak - 08/16/2023 7:41 AM CDT Pt has been scheduled. * Telephone Encounter - Portia Pak - 08/15/2023 2:10 PM CDT Pt wants to do combo case with plastics, so we are trying to coordinate with them. Referral at PSR desk. She wants to see chandra. Pickard. Call Filipe to schedule together. documented in this encounter Plan of Treatment Scheduled Procedures Name Priority Associated Diagnoses Date/Ti me MASTECTOMY BILATERAL BRCA2 gene mutation positive documented as of this encounter Visit Diagnoses Not on filedocumented in this encounter
--- OUTSIDE RECORDS SUMMARY | 2023-08-29 02:35 | XMS_ITS | Referral Summary ---
Author Organization [facility] Address [address] [place] [address] Care Team Providers Care Rubber Cutter And Shape Carver Name Role Phone Unavailable Primary Care Provider Unavailabl e Source Comments Patient records contain information from all sites at [facility]. For routine questions regarding patient records, call [phone] during business hours, M-F 8:00 AM - 5:00 PM Central Time. Record requests for emergency care only can be directed to [phone] at any time[address] Encounters Date Type Department Care Team Description 08/23/2023 Clinical Communication Department of Obstetrics and Gynecology, Division of Gynecologic Oncology in [place], [place] [address] [place] [phone] Prescheduling, Provider 06/15/2023 Clinical Communication Department of Medical Genetics in [place], [place] [address] [place] [phone] Radha Burgos MLiliane, CGC 06/14/2023 3:00 PM CDT Telemedicine Department of Medical Genetics in [place], [place] [address] [place] [phone] Chilo Mario M.D. Purfeerst, Madaline T, M.SLuis, [place] Genetic Susceptibility To Disease 06/11/2023 Orders Only Department of Medical Genetics in [place], [place] [address] [place] [phone] Radha Burgos M.SLuis, BALB[place] Genetic Susceptibility To Disease (Primary Dx) from Last 3 Months Active Problems Problem Noted Date Diagnosed Date BRCA2 Gene Mutation Positive 06/15/2023 Overview: Germline genetic testing in 2023; 19-gene custom panel from [facility]. One heterozygous pathogenic variant found in the BRCA2 gene, specifically named p.[id number] (c.9004G>A). Social History Tobacco Use Types Packs/Day Years Used Date Smoking Tobacco: Never Assessed [facility] Utilities Answer Date Recorded In the past 12 months has [facility] electric, gas, oil, or water company [...] Assigned at Female 05/08/2023 12:42 PM HEALTH WORKERS Gender Identity Female 05/08/2023 12:42 PM HEALTH WORKERS Sexual Orientation Straight 05/08/2023 12 :42 PM HEALTH WORKERS Last Filed Vital Signs Vital Sign Reading [...] and Gynecology, Division of Gynecologic Oncology in [place], [place] [address] [place] [address] Ede Garcia M.D. [address] [place] [address] Procedures Procedure Name Priority Date/Time Associated Diagnosis Comments [facility] 05/29/2023 1 2:11 PM CDT [facility] Routine 05/29/2023 12:11 PM CDT Family History Genetic Disorder Cancer Breast Family History from Last 3 Months Results * [facility]05/29/2023 12:11 PM CDT) Test Name Custom Panel 06/08/2023 12:12 PM CDT [facility] Result SEE COMMENT 06/08/2023 12:19 PM CDT [facility] Comment: For final report, select Lab-Send Out Lab Results hyperlink below. 05/29/2023 12:1 1 PM CDT 06/08/2023 12:11 PM CDT Chilo Mario M.D. LAB [facility] ORDERABLE S [address] [place] [address], [facility] AMBR [address] [place] [address] * [id number] [facility] Custom Panel - Miscellaneous Test (05/29/2023 12:11 PM CDT) Test Name Custom Panel 06/08/2023 12:12 PM CDT HLS Saliva (Mouth) 05/29/2023 12 :11 PM CDT 06/08/2023 12:11 PM CDT Chilo Mario M.D. LAB MISC ORDERABLE S [facility] [address] [place] [address], [facility] [address] [place] [address] from Last 3 Months
[2023-08-29 03:27] VITALS: PULSE 90; RESP 16; O2SAT 93
[2023-08-29 04:10] VITALS: PULSE 86; RESP 16; O2SAT 96
[2023-08-29 04:30] VITALS: O2SAT 96
== END 2023-08-29 04:31 | disposition home or self-care (01) ==
LOC: ED 02:34
PROVIDERS: Emergency Provider Family Medicine; PCP Internal Medicine
DX: J38.5 Laryngeal spasm (principal)
CPT/HCPCS: 94761; 99283

== ENCOUNTER 2023-09-03 12:56 | Outpatient (CLI) | payer MEDICARE, BC, SELFPAY ==
--- NOTE | 2023-09-03 13:00 | CRLHL7_ITS ---
For Patients: As a result of the Century Cures Act, medical imaging exams and procedure reports are released immediately into your electronic medical record. You may view this report before your referring provider. If you have questions, please contact your health care provider. BILATERAL DIGITAL SCREENING MAMMOGRAM WITH COMPUTER-AIDED DETECTION AND TOMOSYNTHESIS CLINICAL HISTORY: Routine screening exam. COMPARISON: 11/15/2022, 11/09/2021, 10/26/2020, 10/01/2019. TECHNIQUE: Digital mammogram in CC and MLO projections including computer-aided detection (CAD). Tomosynthesis was used in this interpretation. BREAST COMPOSITION: The breasts are heterogeneously dense, which may obscure small masses. FINDINGS: RIGHT Breast: No suspicious findings. LEFT Breast: Focal asymmetric density retroareolar plane 4 cm from the nipple MLO view only. IMPRESSION: LEFT breast asymmetry/mass. RECOMMENDATIONS: Additional mammographic views of the LEFT breast including 3D spot compression MLO and 3D true lateral. LEFT breast ultrasound may also be required. BI-RADS Category 0: Incomplete: Need Additional Imaging Evaluation and/or Prior Mammograms for Comparison [facility] will contact the patient for follow-up. A lay language report of this examination will be provided to the patient. Dictated by Brian Robert MD @ 09/10/2023 12:32:07 PM steve/Dictated by: Brian Robert MD @ 09/10/2023 12:32:00 PM (Electronically Signed)
--- OUTSIDE RECORDS SUMMARY | 2023-09-03 13:00 | XMS_ITS | Encounter Summary ---
Author Organization [facility] Address [address] [place] [address] Care Team Providers Care Student Assistance Counselor Name Role Phone Unavailable Primary Care Provider Unavailabl e Encounter Details Date Type Department Care Team (Late st Contact Info) Description 08/23/2023 Clinical Communication Department of Obstetrics and Gynecology, Division of Gynecologic Oncology in [place], [place] [address] [place] [address] Prescheduling, Provider Social History Tobacco Use Types Packs/Day Years Used Date Smoking Tobacco: Never Assessed [facility] Utilities Answer Date Recorded In the past [...] your living situation today? I have a [facility] place to live 05/08/2023 Sex and Gender Information Value Date Recorded Sex Assigned at Female 05/08/2023 12:42 PM PROFESSOR OF SPANISH Gender Identity Female 05/08/2023 12:42 PM PROFESSOR OF SPANISH Sexual Orientation Straight 05/08/2023 12 :42 PM PROFESSOR OF SPANISH documented as of this encounter Plan of Treatment Upcoming Encounters Date Type Department Care Team (Late st Contact Info) Description 09/11/2023 9:15 AM CDT Comprehensive Visit Department of Obstetrics and Gynecology, Division of Gynecologic Oncology in [place], [place] [address] [place] [address] Ede Garcia M.D. [address] [place] [address] documented as of this encounter Visit Diagnoses Not on filedocumented in this encounter
--- OUTSIDE RECORDS SUMMARY | 2023-09-03 13:00 | XMS_ITS | Encounter Summary ---
Author Organization [facility] er Address [address] [place] [address] Care Team Providers Care Cotton Presser Name Role Phone None, Pcp Primary Care Provider Unavailabl e Reason for Visit * Reason Comments Consult Breast consult Encounter Details Date Type Department Care Team ([facility] st Contact Info) Description 08/27/2023 3:00 PM CDT Office Visit [facility] General Surgery [address] [place] [address] Efraín Rubio MD [address] [place] [phone] BRCA2 gene mutation positive (Primary Dx) [...] Insecurity: No Food Insecurity (05/08/2023) Received from [facility] Hunger Vital Sign Worried About Running Out of Food in the Last Year: Never true Ran Out of Food in the Last Year: Never true Transportation Needs: No Transportation Needs (05/08/2023) Received from [facility] PRAPARE - Transportation Lack of Transportation (Medical): No Lack of Transportation (Non-Medical): No Physical Activity: Sufficiently Active (05/08/2023) Received from [facility] Exercise Vital Sign Days of Exercise per Week: 4 days Minutes of Exercise per Session: 40 min Stress: Not on file Social Connections: Not on file Intimate Partner Violence: Not on file Housing Stability: Low Risk (05/08/2023) Received from [facility] Housing Stability What is your living situation [...] pending. She is scheduled to see the millroom supervisor at the [facility] early week of September to discuss the recommendations. I would also like to get a mammogram again before planning any surgical intervention. Patient wouldlike to coordinate this with her local healthcare center in [place]. Patient was informed that Iwould also like [...] Primary documented in this encounter Care Teams Cotton Presser Relationship Specialty Start Date End Date None, Pcp [address] [place] [address] PCP - General Health Consultant 08/27/23 documented as of this encounter
--- OUTSIDE RECORDS SUMMARY | 2023-09-03 13:00 | XMS_ITS | Encounter Summary ---
Author Organization [facility] Address [address] [place] [address] Care Team Providers Care Indigo Mixer Name Role Phone Unavailable Primary Care Provider Unavailabl e Reason for Referral * Outpatient (Routine) - Closed Specialty Diagnoses / Procedures Referred By Alicja leal Referred To Contact Video Medicine Diagnoses Genetic Susceptibility To Disease Chilo Mario M.D. [address] [place] [phone] [facility] Referral ID Status Reason Start Date Expiration Date Visits Re quested Visits Authorized [id number] Closed 06/11/2023 12/10/2024 1 1 Encounter Details Date Type Department Care Team (Late st Contact Info) Description 06/11/2023 Orders Only Department of Medical Genetics in [place], [place] [address] [place] [phone] Radha Burgos M.S., [facility] [address] [place] [phone] Genetic Susceptibility To Disease (Primary Dx) Social History Tobacco Use Types Packs/Day Years Used Date Smoking Tobacco: Never Assessed [facility] Utilities Answer Date Recorded In [...] your living situation today? I have a [facility] place to live 05/08/2023 Sex and Gender Information Value Date Recorded Sex Assigned at Female 05/08/2023 12:42 PM ADMINISTRATIVE DIETITIAN Gender Identity Female 05/08/2023 12:42 PM ADMINISTRATIVE DIETITIAN Sexual Orientation Straight 05/08/2023 12 :42 PM ADMINISTRATIVE DIETITIAN documented as of this encounter Plan of Treatment Upcoming Encounters Date Type Department Care Team (Late st Contact Info) Description 09/11/2023 9:15 AM CDT Comprehensive Visit Department of Obstetrics and Gynecology, Division of Gynecologic Oncology in [place], [place] 200 [place] [address] Ede Garcia M.D. 200 [place] [address] Scheduled Referrals Name Type Priority Associated Diagnoses Orde r Schedule Video anyplace visit Outpatient Referral Routine Genetic Susceptibility To Disease Expected: 06/11/2023, Expires: 09/09/2024 documented as of this encounter Visit Diagnoses Diagnosis 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
--- OUTSIDE RECORDS SUMMARY | 2023-09-03 13:00 | XMS_ITS | Encounter Summary ---
Author Organization [facility] Address [address] [place] [address] Care Team Providers Care Helper Shear Operator Name Role Phone Unavailable Primary Care Provider Unavailabl e Encounter Details Date Type Department Care Team (Late st Contact Info) Description 09/03/2023 Orders Only Department of Obstetrics and Gynecology, Division of Gynecologic Oncology in [place], [place] [address] [place] [address] Lary Armstrong, RLuisNLuis BRCA2 Gene Mutation Positive (Primary Dx) Social History Tobacco Use Types Packs/Day Years Used Date Smoking Tobacco: Never Assessed [facility] Utilities Answer Date Recorded In the past 12 months has e electric, gas, oil, or water [employer] threatened to shut off services in your [...] your living situation today? I have a [facility] place to live 05/08/2023 Sex and Gender Information Value Date Recorded Sex Assigned at Female 05/08/2023 12:42 PM GAMING HOST Gender Identity Female 05/08/2023 12:42 PM GAMING HOST Sexual Orientation Straight 05/08/2023 12 :42 PM GAMING HOST documented as of this encounter Plan of Treatment Upcoming Encounters Date Type Department Care Team (Late st Contact Info) Description 09/11/2023 9:15 AM CDT Comprehensive Visit Department of Obstetrics and Gynecology, Division of Gynecologic Oncology in [place], [place] [address] [place] [address] Ede Garcia M.D. [address] [place] [address] Scheduled Orders Name Type Priority Associated Diagnoses Orde r Schedule Pathology Review of Outside Material Pathology and Cytology Routine BRCA2 Gene Mutation Positive Expected: 09/03/2023, Expires: 09/24/2023 documented as of this encounter Visit Diagnoses Diagnosis BRCA2 Gene Mutation Positive- Primary documented in this encounter
--- OUTSIDE RECORDS SUMMARY | 2023-09-03 13:00 | XMS_ITS | Referral Summary ---
Author Organization [facility] Address [address] [place] [address] Care Team Providers Care Shade Cutter Name Role Phone Unavailable Primary Care Provider Unavailabl e Source Comments Patient records contain information from all sites at [facility]. For routine questions regarding patient records, call [phone] during business hours, M-F 8:00 AM - 5:00 PM Central Time. Record requests for emergency care only can be directed to [phone] at any time.[facility] Encounters Date Type Department Care Team Description 09/03/2023 Orders Only Department of Obstetrics and Gynecology, Division of Gynecologic Oncology in [place], [place] [address] [place] [phone] Lary Armstrong, RSrikanth. BRCA2 Gene Mutation Positive (Primary Dx) 08/23/2023 Clinical Communication Department of Obstetrics and Gynecology, Division of Gynecologic Oncology in [place], [place] [address] [place] [phone] Prescheduling, Provider 06/15/2023 Clinical Communication Department of Medical Genetics in [place], [place] [address] [place] [phone] Radha Burgos, M.SLuis, CGC 06/14/2023 3:00 PM CDT Telemedicine Department of Medical Genetics in [place], [place] [address] [place] [phone] Chilo Mario M.D. Purfeerst, Madaline T, M.S., CGC Genetic Susceptibility To Disease 06/11/2023 Orders Only Department of Medical Genetics in [place], [place] [address] [place] [phone] Radha Burgos M.S., [facility] Genetic Susceptibility To Disease (Primary Dx) from Last 3 Months Active Problems Problem Noted Date Diagnosed Date BRCA2 Gene Mutation Positive 06/15/2023 Overview: Germline genetic testing in 2023; 19-gene custom panel from [facility]. One heterozygous pathogenic variant found in the BRCA2 gene, specifically named p.[id number] (c.9004G>A). Social History Tobacco Use Types Packs/Day Years Used Date Smoking Tobacco: Never Assessed [facility] Utilities Answer Date Recorded In the past 12 months has e electric, gas, oil, or water company [...] your living situation today? I have a [facility] place to live 05/08/2023 Sex and Gender Information Value Date Recorded Sex Assigned at Female 05/08/2023 12:42 PM WELFARE ADVISER Gender Identity Female 05/08/2023 12:42 PM WELFARE ADVISER Sexual Orientation Straight 05/08/2023 12 :42 PM WELFARE ADVISER Last Filed Vital Signs Vital Sign Reading [...] and Gynecology, Division of Gynecologic Oncology in [place], [place] [address] [place] [address] Ede Garcia M.D. [address] [place] [address]
--- OUTSIDE RECORDS SUMMARY | 2023-09-03 13:00 | XMS_ITS | Encounter Summary ---
Author Organization [facility] er Address [address] [place] [address] Care Team Providers Care Engine Buildup Mechanic Name Role Phone None, Pcp Primary Care Provider Unavailabl e Reason for Visit * Reason Onset Date Comments Schedule combo case 08/27/2023 Encounter Details Date Type Department Care Team (Late st Contact Info) Description 08/27/2023 Telephone [facility] General Surgery [address] [place] [address] E[place] [address] [place] [phone] Schedule combo case Social History Tobacco Use [...] encounter Miscellaneous Notes * Telephone Encounter - Efraín Rubio MD - 08/30/2023 2:03 PM CDT Patient had mentioned to me at the time of the consultation that she will coordinate this with her primary physician in [place]. [place]. The mammogram has to be completed before the planned surgical procedure. If there is an issue with the mammogram can be completed at [facility] and please order the same indication screening mammogram, BRCA2 positive * Telephone Encounter - Karma Whittington RN - 08/29/2023 9:[address] Rubio, please advise who will place order for mammogram, if that will be [facility] (Dr. Rubio or Dr. Herrera) or patient's PCP. * Telephone Encounter - Karma Whittington RN [...] on filedocumented in this encounter Care Teams Engine Buildup Mechanic Relationship Specialty Start Date End Date None, Pcp [address] [place], [place] [address] [place] [address] PCP - General Payroll Human Resources Assistant 08/27/23 documented as of this encounter
--- OUTSIDE RECORDS SUMMARY | 2023-09-03 13:00 | XMS_ITS | Encounter Summary ---
Author Organization [facility] er Address [address] [place] [address] Care Team Providers Care Infantry Unit Leader Name Role Phone None, Pcp Primary Care Provider Unavailabl e Encounter Details Date Type Department Care Team (Late st Contact Info) Description 08/27/2023 4:00 PM CDT Consult [facility] Plastic Surgery [address] [place] [phone] Manoj Herrera MD [address] [place] [phone] Encounter for breast reconstruction following mastectomy [...] Primary documented in this encounter Care Teams Infantry Unit Leader Relationship Specialty Start Date End Date None, Pcp [address] [place], [place] [address] [place] [address] PCP - General Piper Helper 08/27/23 documented as of this encounter
--- OUTSIDE RECORDS SUMMARY | 2023-09-03 13:00 | XMS_ITS | Clinical Summary ---
Author Organization [facility] Address [address] [place] [address] Care Team Providers Care Portfolio Architect Name Role Phone Unavailable Primary Care Provider Unavailabl e Source Comments Patient records contain information from all sites at [facility]. For routine questions regarding patient records, call [phone] during business hours, M-F 8:00 AM - 5:00 PM Central Time. Record requests for emergency care only can be directed to [phone] at any time.[facility] Active Problems Problem Noted Date Diagnosed Date BRCA2 Gene Mutation Positive 06/15/2023 Overview: Germline genetic testing in 2023; 19-gene custom panel from [facility]. One heterozygous pathogenic variant found in the BRCA2 gene, specifically named p.[id number] (c.9004G>A). Encounters Date Type Department Care Team Description 09/03/2023 Orders Only Department of Obstetrics and Gynecology, Division of Gynecologic Oncology in [place], [place] [address] [place] [address] Lary Armstrong, RSrikanth. BRCA2 Gene Mutation Positive (Primary Dx) 08/23/2023 Clinical Communication Department of Obstetrics and Gynecology, Division of Gynecologic Oncology in [place], [place] [address] [place] [address] Prescheduling, Provider 06/15/2023 Clinical Communication Department of Medical Genetics in [place], [place] [address] [place] [address] Radha Burgos M.S., [facility] 06/14/2023 3:00 PM CDT Telemedicine Department of Medical Genetics in [place], [place] [address] [place] [address] Chilo Mario M.D. 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 ashley hter's mom tested negative Prostate cancer Brother 1 Prostate cancer Brother 2 Diabetes type I Daughter 1 Prostate cancer Father Srinivas Skin cancer Father Srinivas non-melanoma Prostate cancer Father's Brother Ross Breast cancer Father's Sister 1 [place] Skin cancer Father's Sister 1 [place] Breast cancer Maternal Cousin 1 Breast cancer Maternal Cousin 2 Polio Maternal Grandfather Breast cancer Maternal Grandmother Bernice Uterine fibroid Mother Breast cancer Mother's Sister 1 Sita Melanoma Mother's Sister 2 Rosi BRCA2 Positive Niece no cancer; ma terjohana grandmother: breast cancer; mother: no genetic [...] Date Smoking Tobacco: Never Assessed [facility] Utilities Answer Date Recorded In [...] Sex Assigned at Female 05/08/2023 12:42 PM JOINTER OPERATOR Gender Identity Female 05/08/2023 12:42 PM JOINTER OPERATOR Sexual Orientation Straight 05/08/2023 12 :42 PM JOINTER OPERATOR Last Filed Vital Signs Vital Sign Reading [...] and Gynecology, Division of Gynecologic Oncology in [place], [place] [address] [place] [address] Ede Garcia M.D. [address] [place] [address] Health Maintenance Due Date Last Done Comments [...] Fall Risk Screen (Annual) 03/12/2023 COVID-19 Vaccine (2022-2 4 season) 2023 12/08/2022, 07/11/2022, 02/22/2022, Additional history exists DTaP,Tdap,and Td Vaccines (3 - Td or Tdap) 11/21/2032 11/21/2022, 04/03/2012 Zoster Vaccines Completed 02/20/2019, 12/02/2018 Influenza Vaccine Completed 11/21/2022, , 11/10/2020, Additional history exists HUONG Bello [phone]
--- OUTSIDE RECORDS SUMMARY | 2023-09-03 13:00 | XMS_ITS | Encounter Summary ---
Author Organization [facility] Address [address] [place] [address] Care Team Providers Care Stenotypist Name Role Phone Unavailable Primary Care Provider Unavailabl e Reason for Visit * Outpatient (Routine) - Closed Specialty Diagnoses / Procedures Referred By Alicja leal Referred To Contact Video Medicine Diagnoses Genetic Susceptibility To Disease Chilo Mario M.D. [address] [place] [phone] [facility] Referral ID Status Reason Start Date Expiration Date Visits Re quested Visits Authorized [id number] Closed 06/11/2023 12/10/2024 1 1 Encounter Details Date Type Department Care Team (Late st Contact Info) Description 06/14/2023 3:00 PM CDT Telemedicine Department of Medical Genetics in [place], [place] [address] [place] [phone] Chilo Mario M.D. [address] [place] [phone] Radha Burgos M.S., [facility] [address] [place] [phone] Genetic Susceptibility To Disease Social History Tobacco Use Types Packs/Day Years Used Date Smoking Tobacco: Never Assessed [facility] Utilities Answer Date Recorded In the [...] living situation today? I have a [facility] place to live 05/08/2023 Sex and Gender Information Value Date Recorded Sex Assigned at Female 05/08/2023 12:42 PM FILM RECORDIST Gender Identity Female 05/08/2023 12:42 PM FILM RECORDIST Sexual Orientation Straight 05/08/2023 12 :42 PM FILM RECORDIST documented as of this encounter Progress Notes * Radha Burgos M.S., [facility] - 06/14/2023 3:00 PM CDT Images from [...] with BRCA2 site specific analysis, available from [employer]. This custom panel included genes associated with [...] variant in the BRCA2 gene, specifically named [id number] (c.9004G>A). A pathogenic variant is a harmful [...] the current understanding of BRCA2 and may place change roof bolter time. The average risk to develop breast [...] for reference. These guidelines are subject to place change roof bolter time. Patients are encouraged to contact our [...] Decisions about HRT are deferred to a service tech/welder or HCP with expertise in menopause management. [...] device. Consultation with a gynecologic oncologist or service tech/welder with expe rtise in genetic susceptibility to [...] have clinical skin examinations performed by a plant controller every 6-12 months, (2) perform thorough skin [...] Society, do remain appropriate. [facility] ([facility]) We discussed the option of being seen by a nurse practitioner or physician in the Department of Clinical Genomics' Hereditary Cancer Clinic for medical management of BRCA2 cancer risks. The [facility] is dedicated to providing care and support to patients with hereditary risk of developing certain types of cancers. At the [facility], a variety of services are offered, including an annual visit addressing screening recommendations for the patient's specific needs and referral to specialties. Patients can be seen in person in [place] or via video visit. Similarly, screening/surveillance can take place in [place] or can be completed in a local health system. To be seen this clinic, patients can call [facility] at [phone] to discuss a referral. REPRODUCTIVE RISKS Preconception [...] limitations of this option. [facility] ([facility]) We discussed the option of being seen by a nurse practitioner or physician in the Department of [facility] Gen[facility]' Hereditary Cancer Clinic for medical management of BRCA2 cancer risks. The [facility] is dedicated to providing care and support to patients with hereditary risk of developing certain types of cancers. At the [facility], a variety of services are offered, including an annual visit addressing screening recommendations for the patient's specific needs and referral to specialties. Patients can be seen in person in [place] or via video visit. Similarly, screening/surveillance can take place in [place] or can be completed in a local health system. To be seen this clinic, patients can call [facility] at [phone] to discuss a referral. REPRODUCTIVE RISKS Preconception [...] in their area, family members can visit: www.[employer]. RESOURCES The organization [employer] (Facing Our Risk for Cancer [employer]) has the mission of improving the lives of individuals and families affected by hereditary breast and ovarian cancer. The website for thisorganization is: www.[employer].Helpa. PLAN No referrals placed today. Cydney is [...] answered. Electronically signed by Radha Burgos M.S., [facility] at 06/15/2023 8:15 AM CDT documented in this encounter Plan of Treatment Upcoming Encounters Date Type Department Care Team (Late st Contact Info) Description 09/11/2023 9:15 AM CDT Comprehensive Visit Department of Obstetrics and Gynecology, Division of Gynecologic Oncology in [place], [place] [address] [place] [address] Ede Garcia M.D. [address] [place] [address] documented as of this encounter Visit Diagnoses Diagnosis Genetic Susceptibility To Disease documented in this encounter
--- OUTSIDE RECORDS SUMMARY | 2023-09-03 13:00 | XMS_ITS ---
Author Organization [facility] Address [address] [place] [address] Care Team Providers Care Market Development Specialist Name Role Phone Unavailable Unavailable Unavailable Surgery Details Not on file Complications Check Surgery Details section. Procedure Estimated Blood Loss Check Surgery Details section. Procedure Findings Check Surgery Details section. Procedure Specimens Taken Check Surgery Details section.
--- OUTSIDE RECORDS SUMMARY | 2023-09-03 13:00 | XMS_ITS | Encounter Summary ---
Author Organization [facility] Address [address] [place] [address] Care Team Providers Care Foam Rubber Mixer Name Role Phone Unavailable Primary Care Provider Unavailabl e Encounter Details Date Type Department Care Team (Late st Contact Info) Description 06/15/2023 Clinical Communication Department of Medical Genetics in [place], [place] [address] [place] [address] Radha Burgos M.S., [facility] [address] [place] [address] Social History Tobacco Use Types Packs/Day Years Used Date Smoking Tobacco: Never Assessed [facility] Utilities Answer Date Recorded In [...] your living situation today? I have a [facility] place to live 05/08/2023 Sex and Gender Information Value Date Recorded Sex Assigned at Female 05/08/2023 12:42 PM ORTHODONTIC BAND MAKER Gender Identity Female 05/08/2023 12:42 PM ORTHODONTIC BAND MAKER Sexual Orientation Straight 05/08/2023 12 :42 PM ORTHODONTIC BAND MAKER documented as of this encounter Plan of Treatment Upcoming Encounters Date Type Department Care Team (Late st Contact Info) Description 09/11/2023 9:15 AM CDT Comprehensive Visit Department of Obstetrics and Gynecology, Division of Gynecologic Oncology in [place], [place] [address] [place] [address] Ede Garcia M.D. [address] [place] [address] documented as of this encounter Visit Diagnoses Not on filedocumented in this encounter
--- OUTSIDE RECORDS SUMMARY | 2023-09-03 13:00 | XMS_ITS | Clinical Summary ---
Author Organization [facility] Address [address] [place] [address] Care Team Providers Care Order Entry Clerk Name Role Phone None, Pcp Primary Care [...] Team Description 08/27/2023 4:00 PM CDT Consult [facility] Plastic Surgery [address] [place] [address] Manoj Herrera MD Encounter for breast reconstruction following mastectomy (Primary Dx) 08/27/2023 3:00 PM CDT Office Visit [facility] General Surgery [address] [place] [address] Efraín Rubio MD BRCA2 gene mutation positive (Primary Dx) 08/27/2023 Telephone [facility] General Surgery [address] [place] [address] Efraín Rubio MD Schedule combo case 08/15/2023 Telephone [facility] General Surgery [address] [place] [address] Efraín Rubio MD referral from Last 3 [...] age to complete this topic Care Teams Order Entry Clerk Relationship Specialty Start Date End Date None, Pcp [address] [place] [address] PCP - General Datastage Developer 08/27/23
--- OUTSIDE RECORDS SUMMARY | 2023-09-03 13:00 | XMS_ITS | Encounter Summary ---
Author Organization [facility] Address [address] [place] [address] Care Team Providers Care Copy Center Associate Name Role Phone Unavailable Primary Care Provider Unavailabl e Reason for Visit * Reason Onset Date Comments referral 08/15/2023 Encounter Details Date Type Department Care Team (Late st Contact Info) Description 08/15/2023 Telephone [facility] General Surgery [address] [place] [address] Efraín [place] [address] [place] [phone] referral Social History Tobacco Use Types [...]
== END 2023-09-03 12:57 | disposition home or self-care (01) ==
LOC: MAMMO 12:58
PROVIDERS: PCP Internal Medicine; Visit Provider Obstetrics & Gynecology
DX: Z12.31 Encounter for screening mammogram for malignant neoplasm of breast (principal); N63.20 Unspecified lump in the left breast, unspecified quadrant
CPT/HCPCS: 77063; 77067

== ENCOUNTER 2023-09-25 08:33 | Outpatient (CLI) | payer MEDICARE, BC, SELFPAY ==
--- OUTSIDE RECORDS SUMMARY | 2023-09-25 08:36 | XMS_ITS | Clinical Summary ---
Author Organization [facility] Address [address] [place] [address] Care Team Providers Care Worm Grower Name Role Phone Unavailable Primary Care Provider Unavailabl e Source Comments Patient records contain information from all sites at [facility]. For routine questions regarding patient records, call [phone] during business hours, M-F 8:00 AM - 5:00 PM Central Time. Record requests for emergency care only can be directed to [phone] at any time.[facility] Active Problems Problem Noted Date Diagnosed Date BRCA2 Gene Mutation Positive 06/15/2023 Overview: Germline genetic testing in 2023; 19-gene custom panel from [facility]. One heterozygous pathogenic variant found in the BRCA2 gene, specifically named p.F5239H (c.9004G>A). Encounters Date Type Department Care Team Description 09/14/2023 Orders Only Department of Obstetrics and Gynecology in [place], [place] [address] [place] [phone] Aracely Grissom M.D., M.S. BRCA2 Gene Mutation Positive (Primary Dx) 09/12/2023 11:20 AM CDT - 09/12/2023 11:59 PM CDT Hospital Encounter Department of Radiology, [facility], in [place], [place] [address] [place] [address] Ede Garcia M.D. BRCA2 Gene Mutation Positive Discharge Disposition: Home or Self Care 09/11/2023 9:15 AM CDT Comprehensive Visit Department of Obstetrics and Gynecology, Division of Gynecologic Oncology in [place], [place] [address] [place] [address] Ede Garcia M.D. BRCA2 Gene Mutation Positive (Primary Dx) 09/05/2023 4:20 PM CDT Lab [facility] [address] [place] [address] Ede Garcia M.D. BRCA2 Gene Mutation Positive 09/05/2023 Orders Only Department of Obstetrics and Gynecology, Division of Gynecologic Oncology in [place], [place] [address] [place] [address] Ernestnia Babcock R.N. BRCA2 Gene Mutation Positive (Primary Dx) 09/03/2023 Orders Only Department of Obstetrics and Gynecology, Division of Gynecologic Oncology in [place], [place] [address] [place] [address] Lary Armstrong R.N. BRCA2 Gene Mutation Positive (Primary Dx) 08/23/2023 Clinical Communication Department of Obstetrics and Gynecology, Division of Gynecologic Oncology in [place], [place] [address] [place] [address] Prescheduling, Provider from Last 3 Months Family History Medical [...] Rosi BRCA2 Positive Niece no cancer; ma ternal grandmother: breast cancer; mother: no genetic testing, [...] Used Date Smoking Tobacco: Never Assessed [facility] Utilities Answer Date Recorded [...] living situation today? I have a [facility] place to live 05/08/2023 Sex and Gender Information Value Date Recorded Sex Assigned at Female 05/08/2023 12:42 PM FILLER SHREDDING MACHINE LOADER Gender Identity Female 05/08/2023 12:42 PM FILLER SHREDDING MACHINE LOADER Sexual Orientation Straight 05/08/2023 12 :42 PM FILLER SHREDDING MACHINE LOADER Last Filed Vital Signs Vital Sign Reading [...] 08/28/2023 8:49 AM CDT Plan of Treatment Health Maintenance Due Date Last Done Comments Bone Density Scan (Osteoporo sis Screen) [address] Colonography 1957 Cologuard 1955 Colonoscopy 1957 Colorectal Cancer Screening 1955 FIT 1957 Fasting Glucose for Diabetes Screening 1955 Hepatitis C Screening 1955 Mammogram 1957 Depression Screening (Annual PHQ-2) 03/12/2023 Fall Risk Screen (Annual) 03/12/2023 COVID-19 Vaccine (2022-2 4 season) 2023 12/08/2022, 07/11/2022, 02/22/2022, Additional history exists Influenza Vaccine (#1) 2023 , 12/07/2021, 11/10/2020, Additional history exists DTaP,Tdap,and Td Vaccines (3 - Td or Tdap) 11/21/2032 11/21/2022, 04/03/2012 Zoster Vaccines Completed 02/20/2019, 12/02/2018 Pneumococcal vaccine (65+ years) Completed 01/02/20 23, 01/30/2014 Procedures Procedure Name Priority Date/Time Associated Diagnosis Comments PET CT SKULL TO THIGH RAD - Routine (most inpatients and all outpatients) 09/12/2023 2:03 PM CDT BRCA2 Gene Mutation Positive PATHOLOGY REVIEW OF OUTSIDE MATERIAL Routine 07/31/2023 12:00 AM CDT BRCA2 Gene Mutation Positive from Last 3 Months Results * PET CT Skull to Thigh FDG (09/12/2023 2:03 PM CDT) Anatomical Region Laterality Modality Body, Nuclear Medicine PET R ST LOS, PET ARZ LOS, Nuclear Medicine PET FLA LOS, Nuclear Medicine N/A Positron Emission Tomography (PET), Positron Emission Tomography (PET) Impressions 09/12/2023 8:39 PM CDT Two sites of non-specific FDG uptake. Please see findings for details. Narrative 09/12/2023 8:39 PM CDT EXAM: ??PET CT SKULL TO THIGH FDG Serum glucose at time of F-18 FDG injection was 86 mg/dL. Patient followed standard dietary/fasting requirements for this exam. RADIOPHARMACEUTICAL/MEDS: Route: intravenous fludeoxyglucose F 18 injection RETIREMENT (FDG F-18),14.95 millicurie TECHNIQUE: ??F-18 FDG PET/CT scan was performed from the vertex through the upper thighs with low dose, non-contrast, free-breathing CT images for attenuation correction and anatomic localization (AC/AL), with imaging beginning at approximately 60 minutes after radiotracer injection. ? COMPARISON: ??None. There is no other imaging of any kind in [facility]. INDICATION: ??BRCA2 gene mutation. Initial treatment strategy. The patient reports no recent vaccinations. FINDINGS: ?? Physiologic or inflammatory uptake by the fossae of Rosenmuller on series 2401 image 47. Probable physiologic or reactive asymmetric activity along the right thyroid cartilage on series 2401 image 74. Likely inflammatory soft tissue activity is noted posterior to the right ninth rib on series 13 image 123. Inflammatory activity is noted along some lumbar facet joints (for example series 13 image 192). Focal mild-moderate activity (SUV max 2.7) in left anterior upper pelvic wall musculature on series 2401 image 212 is of nonspecific etiology. Normal sized nonspecific node in the left groin on series 13 image 253 has an SUV max of 2.3. Noted on low dose, unenhanced, free breathing, nondiagnostic quality CT images obtained for anatomic coregistration and attenuation correction purposes: Tiny site of dermal and subdermal thickening on the upper medial right breast (series 3 image 112). Coronary artery calcifications. Hysterectomy. Mobile cecum. Procedure Note Collin Lanier M.D., Ph.D. - 09/12/2023 EXAM: PET CT SKULL TO THIGH FDG Serum glucose at time of F-18 FDG injection was 86 mg/dL. Patient followedstandard dietary/fasting requirements for this exam. RADIOPHARMACEUTICAL/MEDS: Route: intravenous fludeoxyglucose F 18 injection RETIREMENT (FDG F-18),14.95 millicurie TECHNIQUE: F-18 FDG PET/CT scan was performed from the vertex through theupper thighs with low dose, non-contrast, free-breathing CT images forattenuation correction and anatomic localization (AC/AL), with imagingbeginning at approximately 60 minutes after radiotracer injection. COMPARISON: None. There is no other imaging of any kind in [facility]. INDICATION: BRCA2 gene mutation. Initial treatment strategy. The patient reports no recent vaccinations. FINDINGS: Physiologic or inflammatory uptake by the fossae of Rosenmuller on [id number] image 47. Probable physiologic or reactive asymmetric activity along the rightthyroid cartilage on series 2401 image 74. Likely inflammatory soft tissue activity is noted posterior to the rightninth rib on series 13 image 123. Inflammatory activity is noted along some lumbar facet joints (for exampleseries 13 image 192). Focal mild-moderate activity (SUV max 2.7) in left anterior upper pelvicwall musculature on series 2401 image 212 is of nonspecific etiology. Normal sized nonspecific node in the left groin on series 13 image 253 hasan SUV max of 2.3. Noted on low dose, unenhanced, free breathing, nondiagnostic quality CTimages obtained for anatomic coregistration and attenuation correctionpurposes: Tiny site of dermal and subdermal thickening on the upper medialright breast (series 3 image 112). Coronary artery calcifications. Hysterectomy. Mobile cecum. IMPRESSION: Two sites of non-specific FDG uptake. Please see findings for details. Ede Garcia M.D. [facility] [place] PROCEDURES * Pathology Review of Outside Material (07/31/2023 12:00 AM CDT) 09/11/2023 11:04 AM CDT DTL Participated in the Interpretation Robbin AndreS.-Pathology Fellow 09/11/2023 11:04 AM CDT DTL Report electronically signed by Sarahi Bunn M.D. I verify that I have examined all relevant slides/materials for the specimen(s) and rendered or confirmed the diagnosis. 09/11/2023 11:04 AM CDT DTL Material Received A. [id number]: Right/left ovary, left fallopian tube ? 10 stained slides 09/11/2023 11:04 AM CDT DTL Interpretation FINAL DIAGNOSIS Bilateral ovaries and left fallopian tube, salpingo-oophorectomy ([id number]; 07/31/2023) A. ??Right ovary, right oophorectomy: ??No significant histopathologic abnormality. B. ??Left ovary and fallopian tube, salpingo-oophorectomy : Serous tubal intraepithelial lesion (STIL). ??Ovary with no significant histopathologic abnormality. Reviewed immunohistochemical stains (performed at the outside institution) demonstrate overexpression of p53 in the lesional cells, while Ki-67 shows a proliferation index less than 15%. ??The morphology shows atypia that is somewhat less than is usually seen in classic STIC. These findings support the above interpretation. 09/11/2023 11:04 AM CDT DTL Varies 07/31/2023 09/07/2023 12: 57 PM CDT Ede Garcia M.D. LAB SURG PATH [facility] [address] [place] [address], [facility] DTL [address] [place] [address] from Last 3 Months HUONG Bello [phone]
--- OUTSIDE RECORDS SUMMARY | 2023-09-25 08:36 | XMS_ITS | Referral Summary ---
Author Organization [facility] Address [address] [place] [address] Care Team Providers Care Aircraft Powertrain Repairer Name Role Phone Unavailable Primary Care Provider Unavailabl e Source Comments Patient records contain information from all sites at [facility]. For routine questions regarding patient records, call [phone] during business hours, M-F 8:00 AM - 5:00 PM Central Time. Record requests for emergency care only can be directed to [phone] at any time.[facility] Encounters Date Type Department Care Team Description 09/14/2023 Orders Only Department of Obstetrics and Gynecology in [place], [place] [address] [place] [phone] Aracely Grissom M.D., M.S. BRCA2 Gene Mutation Positive (Primary Dx) 09/12/2023 11:20 AM CDT - 09/12/2023 11:59 PM CDT Hospital Encounter Department of Radiology, [facility], in [place], [place] [address] [place] [address] Ede Garcia M.D. BRCA2 Gene Mutation Positive Discharge Disposition: Home or Self Care 09/11/2023 9:15 AM CDT Comprehensive Visit Department of Obstetrics and Gynecology, Division of Gynecologic Oncology in [place], [place] [address] [place] [phone] Ede Garcia M.D. BRCA2 Gene Mutation Positive (Primary Dx) 09/05/2023 4:20 PM CDT Lab RST RO LMP [address] [place] [phone] Ede Garcia M.D. BRCA2 Gene Mutation Positive 09/05/2023 Orders Only Department of Obstetrics and Gynecology, Division of Gynecologic Oncology in [place], [place] [address] [place] [address] Ernestina Babcock R.N. BRCA2 Gene Mutation Positive (Primary Dx) 09/03/2023 Orders Only Department of Obstetrics and Gynecology, Division of Gynecologic Oncology in [place], [place] [address] [place] [address] Lary Armstrong R.N. BRCA2 Gene Mutation Positive (Primary Dx) 08/23/2023 Clinical Communication Department of Obstetrics and Gynecology, Division of Gynecologic Oncology in [place], [place] [address] [place] [address] Prescheduling, Provider from Last 3 Months Active Problems Problem Noted Date Diagnosed Date BRCA2 Gene Mutation Positive 06/15/2023 Overview: Germline genetic testing in 2023; 19-gene custom panel from [facility]. One heterozygous pathogenic variant found in the BRCA2 gene, specifically named [id number].[id number] (c.9004G>A). Social History Tobacco Use Types Packs/Day Years Used Date Smoking Tobacco: Never Assessed [facility] Utilities Answer Date Recorded In the past 12 months has [facility] [employer], gas, oil, or water [employer] threatened to shut off services in your [...] Sex Assigned at Female 05/08/2023 12:42 PM CLAY PUDDLER Gender Identity Female 05/08/2023 12:42 PM CLAY PUDDLER Sexual Orientation Straight 05/08/2023 12 :42 PM CLAY PUDDLER Last Filed Vital Signs Vital Sign Reading [...] 08/28/2023 8:49 AM CDT Plan of Treatment Not on file Procedures [...] RADIOPHARMACEUTICAL/MEDS: Route: intravenous fludeoxyglucose F 18 injection PENITENTIARY (FDG F-18),14.95 millicurie TECHNIQUE: ??F-18 FDG PET/CT scan was performed from the vertex through the upper thighs with low dose, non-contrast, free-breathing CT images for attenuation correction and anatomic localization (AC/AL), with imaging beginning at approximately 60 minutes after radiotracer injection. ? COMPARISON: ??None. There is no other imaging of any kind in [facility]. INDICATION: ??BRCA2 gene mutation. Initial treatment strategy. [...] RADIOPHARMACEUTICAL/MEDS: Route: intravenous fludeoxyglucose F 18 injection PENITENTIARY (FDG F-18),14.95 millicurie TECHNIQUE: F-18 FDG PET/CT scan was performed from the vertex through theupper thighs with low dose, non-contrast, free-breathing CT images forattenuation correction and anatomic localization (AC/AL), with imagingbeginning at approximately 60 minutes after radiotracer injection. COMPARISON: None. There is no other imaging of any kind in [facility]. INDICATION: BRCA2 gene mutation. Initial treatment strategy. The patient reports no recent vaccinations. FINDINGS: Physiologic or inflammatory uptake by the fossae of Rosenmuller on [id number] image 47. Probable physiologic or reactive asymmetric [...] see findings for details. Ede Garcia M.D. [facility] [place] PROCEDURES * Pathology Review of Outside Material (07/31/2023 12:00 AM CDT) 09/11/2023 11:04 AM CDT DTL Participated in the Interpretation Yara AndreB.S.-Pathology Fellow 09/11/2023 11:04 AM CDT DTL Report electronically signed by Sarahi Bunn M.D. I verify that I have examined all relevant slides/materials for the specimen(s) and rendered or confirmed the diagnosis. 09/11/2023 11:04 AM CDT DTL Material Received A. [id number]: Right/left ovary, left fallopian tube ? 10 stained slides 09/11/2023 11:04 AM CDT DTL Interpretation FINAL DIAGNOSIS Bilateral ovaries and left fallopian tube, salpingo-oophorectomy ([id number]; 07/31/2023) A. ??Right ovary, right oophorectomy: ??No [...] Ede Garcia M.D. LAB SURG PATH ORDERA LUCIAS Performing Organization Address City/State/[facility] Co de Phone Number [facility] [address] [place] [address], [facility] DTL [address] [place] [address] from Last 3 Months
--- OUTSIDE RECORDS SUMMARY | 2023-09-25 08:36 | XMS_ITS | Encounter Summary ---
Author Organization [facility] er Address [address] [place] [address] Care Team Providers Care Ends Breakage Clerk Name Role Phone None, Pcp Primary Care Provider Unavailabl e Reason for Visit * Reason Onset Date Comments Schedule combo case 08/27/2023 Encounter Details Date Type Department Care Team (Late st Contact Info) Description 08/27/2023 Telephone [facility] General Surgery [address] [place] [address] Efraín [place] [address] [place] [phone] Schedule combo case Social History Tobacco [...] coordinate this with her primary physician in [place]. [place]. The mammogram has to be completed before the planned surgical procedure. If there is an issue with the mammogram can be completed at [facility] and please order the same indication screening [...] on filedocumented in this encounter Care Teams Ends Breakage Clerk Relationship Specialty Start Date End Date None, Pcp [address] [place], [place] [address] [place] [address] PCP - General Green Chain Marker 08/27/23 documented as of this encounter
--- OUTSIDE RECORDS SUMMARY | 2023-09-25 08:36 | XMS_ITS | Clinical Summary ---
Author Organization [facility] er Address [address] [place] [address] Care Team Providers Care Electronics Computer Mechanic Name Role Phone None, Pcp Primary [...] Team Description 08/27/2023 4:00 PM CDT Consult [facility] Plastic Surgery [address] [place] [phone] Manoj Herrera MD Encounter for breast reconstruction following mastectomy (Primary Dx) 08/27/2023 3:00 PM CDT Office Visit [facility] General Surgery [address] [place] [address] Efraín Rubio MD BRCA2 gene mutation positive (Primary Dx) 08/27/2023 Telephone [facility] General Surgery [address] [place] [address] Efraín Rubio MD Schedule combo case 08/15/2023 Telephone [facility] General Surgery [address] [place] [address] Efraín Rubio MD referral from Last 3 [...] Years (1 of 1 - PCV) 2022 COVID-19 Vaccine (5 - season) 2023 12/08/2022, 07/20/2021, 01/06/2021, Additional history exists Influenza Vaccine (#1) 2023 2, 11/10/2020, 11/13/2019, Additional history exists DTaP,Tdap,and Td Vaccines (3 - Td or Tdap) 11/21/2032 11/21/2022, 04/03/2012 Zoster Vaccines Completed 02/20/2019, 12/02/2018 HPV Vaccines Aged Out No longer eligi ble based on patient's age to complete this topic Care Teams Electronics Computer Mechanic Relationship Specialty Start Date End Date None, [facility]cp [address] [facility] [place] [place] [address] PCP - General Eyeglass Cutter 08/27/23
--- OUTSIDE RECORDS SUMMARY | 2023-09-25 08:36 | XMS_ITS | Encounter Summary ---
Author Organization [facility] er Address [address] [place] [address] Care Team Providers Care Wanigan Clerk Name Role Phone Unavailable Primary Care Provider Unavailabl e Reason for Visit * Reason Onset Date Comments referral 08/15/2023 Encounter Details Date Type Department Care Team (Late st Contact Info) Description 08/15/2023 Telephone [facility] General Surgery [address] [place] [address] Efraín [place] [address] [place] [phone] referral Social History Tobacco Use Types [...]
--- OUTSIDE RECORDS SUMMARY | 2023-09-25 08:36 | XMS_ITS ---
Author Organization [facility] Address [address] [place] [address] Care Team Providers Care Administrative Support Assistant Name Role Phone Unavailable Unavailable Unavailable Surgery Details Not on file Complications Check Surgery Details section. Procedure Estimated Blood Loss Check Surgery Details section. Procedure Findings Check Surgery Details section. Procedure Specimens Taken Check Surgery Details section.
--- OUTSIDE RECORDS SUMMARY | 2023-09-25 08:36 | XMS_ITS | Encounter Summary ---
Author Organization [facility] er Address [address] [place] [address] Care Team Providers Care Environmental Protection Inspector Name Role Phone None, Pcp Primary Care Provider Unavailabl e Encounter Details Date Type Department Care Team (Late st Contact Info) Description 08/27/2023 4:00 PM CDT Consult [facility] Plastic Surgery [address] [place] [phone] Manoj Herrera MD [address] [place] [phone] Encounter for breast reconstruction following mastectomy [...] Primary documented in this encounter Care Teams Environmental Protection Inspector Relationship Specialty Start Date End Date None, Pcp [address] [place], [place] [address] [address] PCP - General Appian Bpm Developer 08/27/23 documented as of this encounter
--- OUTSIDE RECORDS SUMMARY | 2023-09-25 08:36 | XMS_ITS | Encounter Summary ---
Author Organization [facility] Address [address] [place] [address] Care Team Providers Care Dial Brusher Name Role Phone Unavailable Primary Care Provider Unavailabl e Reason for Referral * Outpatient (Routine) - Authorized Specialty Diagnoses / Procedures Referred By Contritesh t Referred To Contact Diagnoses BRCA2 Gene Mutation Positive Procedures US Pelvis Transvaginal and Transabdominal Aracely Grissom M.D., M.S. [address] [place] [phone] [facility] Referral ID Status Reason Start Date Expiration Date V isits Requested Visits Authorized [id number] Authorized 09/14/2023 09/13/2024 1 1 Encounter Details Date Type Department Care Team (Late st Contact Info) Description 09/14/2023 Orders Only Department of Obstetrics and Gynecology in [place], [place] [address] [place] [phone] Aracely Grissom M.D., M.S. [address] [place] [phone] BRCA2 Gene Mutation Positive (Primary Dx) Social History Tobacco Use Types Packs/Day Years Used Date Smoking Tobacco: Never Assessed [facility] Utilities Answer Date Recorded In the [...] your living situation today? I have a [facility] place to live 05/08/2023 Sex and Gender Information Value Date Recorded Sex Assigned at Female 05/08/2023 12:42 PM TRUCK SERVICE MANAGER Gender Identity Female 05/08/2023 12:42 PM TRUCK SERVICE MANAGER Sexual Orientation Straight 05/08/2023 12 :42 PM TRUCK SERVICE MANAGER documented as of this encounter Plan of Treatment Scheduled Orders Name Type Priority Associated Diagnoses Order Schedule Cancer Antigen 125 (CA 125) Lab Routine BRCA2 Gene Mutation Positive Expected: 09/13/2024, Expires: 12/14/2024 US Pelvis Transvaginal and Transabdominal Imaging RAD - Routine (most inpatients and all outpatients) BRCA2 Gene Mutation Positive Expected: 09/13/2024, Expires: 12/14/2024 documented as of this encounter Visit Diagnoses Diagnosis BRCA2 Gene Mutation Positive- Primary documented in this encounter
--- OUTSIDE RECORDS SUMMARY | 2023-09-25 08:36 | XMS_ITS | Encounter Summary ---
Author Organization [facility] er Address [address] [place] [address] Care Team Providers Care Waistband Setter Name Role Phone None, Pcp Primary Care Provider Unavailabl e Reason for Visit * Reason Comments Consult Breast consult Encounter Details Date Type Department Care Team ([facility] st Contact Info) Description 08/27/2023 3:00 PM CDT Office Visit [facility] [place] [facility] General Surgery [address] [place] [address] Efraín Rubio MD [address] [place] [phone] BRCA2 gene mutation positive (Primary Dx) [...] Insecurity: No Food Insecurity (05/08/2023) Received from [facility] Hunger Vital Sign Worried About Running Out of Food in the Last Year: Never true Ran Out of Food in the Last Year: Never true Transportation Needs: No Transportation Needs (05/08/2023) Received from [facility] PRAPARE - Transportation Lack of Transportation (Medical): No Lack of Transportation (Non-Medical): No Physical Activity: Sufficiently Active (05/08/2023) Received from [facility] Exercise Vital Sign Days of Exercise per Week: 4 days Minutes of Exercise per Session: 40 min Stress: Not on file Social Connections: Not on file Intimate Partner Violence: Not on file Housing Stability: Low Risk (05/08/2023) Received from [facility] Housing Stability What is your living [...] pending. She is scheduled to see the importer exporter at the [facility] early week of September to discuss the recommendations. I would also like to get a mammogram again before planning any surgical intervention. Patient wouldlike to coordinate this with her local healthcare center in [place]. Patient was informed that Iwould also like [...] Primary documented in this encounter Care Teams Waistband Setter Relationship Specialty Start Date End Date None, Pcp [address] [place] [phone] PCP - General Fabric And Textile Factory Worker 08/27/23 documented as of this encounter
--- OUTSIDE RECORDS SUMMARY | 2023-09-25 08:37 | XMS_ITS | Encounter Summary ---
Author Organization [facility] Address [address] [place] [address] Care Team Providers Care Director Of Customer Acquisition Name Role Phone Unavailable Primary Care Provider Unavailabl e Encounter Details Date Type Department Care Team (Late st Contact Info) Description 09/03/2023 Orders Only Department of Obstetrics and Gynecology, Division of Gynecologic Oncology in [place], [place] [address] [place] [address] Lary Armstrong, RLuisNLuis BRCA2 Gene Mutation Positive (Primary Dx) Social History Tobacco Use Types Packs/Day Years Used Date Smoking Tobacco: Never Assessed [facility] Utilities Answer Date Recorded In the past 12 months has e electric, gas, oil, or water [employer] threatened to shut off services in your [...] Sex Assigned at Female 05/08/2023 12:42 PM SALON SUPERVISOR Gender Identity Female 05/08/2023 12:42 PM SALON SUPERVISOR Sexual Orientation Straight 05/08/2023 12 :42 PM SALON SUPERVISOR documented as of this encounter Plan of Treatment Scheduled Orders Name Type Priority Associated Diagnoses Orde r Schedule Pathology Review of Outside Material Pathology and Cytology Routine BRCA2 Gene Mutation Positive Expected: 09/03/2023, Expires: 09/24/2023 documented as of this encounter Visit Diagnoses Diagnosis BRCA2 Gene Mutation Positive- Primary documented in this encounter
--- OUTSIDE RECORDS SUMMARY | 2023-09-25 08:37 | XMS_ITS | Encounter Summary ---
Author Organization [facility] Address [address] [place] [address] Care Team Providers Care Support Team Member Name Role Phone Unavailable Primary Care Provider Unavailabl e Encounter Details Date Type Department Care Team (Late st Contact Info) Description 09/05/2023 Orders Only Department of Obstetrics and Gynecology, Division of Gynecologic Oncology in [place], [place] [address] [place] [phone] Ernestina Babcock RJesús [address] [place] [phone] BRCA2 Gene Mutation Positive (Primary Dx) Social History Tobacco Use Types Packs/Day Years Used Date Smoking Tobacco: Never Assessed [facility] Utilities Answer Date Recorded In the [...] your living situation today? I have a [facility] place to live 05/08/2023 Sex and Gender Information Value Date Recorded Sex Assigned at Female 05/08/2023 12:42 PM MIDDLE STITCHER Gender Identity Female 05/08/2023 12:42 PM MIDDLE STITCHER Sexual Orientation Straight 05/08/2023 12 :42 PM MIDDLE STITCHER documented as of this encounter Plan of Treatment Not on file documented as of this encounter Results * Pathology Review of Outside Material (07/31/2023 12:00 AM CDT) 09/11/2023 11:04 AM CDT DTL Participated in the Interpretation Robbin AndreS.-Pathology Fellow 09/11/2023 11:04 AM CDT DTL Report electronically signed by Sarahi Bunn M.D. I verify that I have examined all relevant slides/materials for the specimen(s) and rendered or confirmed the diagnosis. 09/11/2023 11:04 AM CDT DTL Material Received A. [id number]: Right/left ovary, left fallopian tube ? 10 stained slides 09/11/2023 11:04 AM CDT DTL Interpretation FINAL DIAGNOSIS Bilateral ovaries and left fallopian tube, salpingo-oophorectomy ([id number]; 07/31/2023) A. ??Right ovary, right oophorectomy: ??No [...] Ede Garcia M.D. LAB SURG PATH [facility] [address] [place] [address], [facility] DT [address] [place] [address] documented in this encounter Visit Diagnoses Diagnosis BRCA2 Gene Mutation Positive- Primary documented in this encounter
--- OUTSIDE RECORDS SUMMARY | 2023-09-25 08:37 | XMS_ITS | Encounter Summary ---
Author Organization [facility] Address [address] [place] [address] Care Team Providers Care Manager Contact Name Role Phone Unavailable Primary Care Provider Unavailabl e Reason for Referral * MRI/CAT/PET Scan (Routine) - Closed Specialty Diagnoses / Procedures Referred By Alicja leal Referred To Contact Diagnoses BRCA2 Gene Mutation Positive Procedures PET CT Skull to Thigh FDG Ede Garcia M.D. [address] [place] [phone] [facility] Referral ID Status Reason Start Date Expiration Date Visits Re quested Visits Authorized [id number] Closed 09/11/2023 09/10/2024 1 1 Reason for Visit * MRI/CAT/PET Scan (Routine) - Closed Specialty Diagnoses / Procedures Referred By Alicja leal Referred To Contact Diagnoses BRCA2 Gene Mutation Positive Procedures PET CT Skull to Thigh FDG Ede Garcia M.D. [address] [place] [address] [facility] Referral ID Status Reason Start Date Expiration Date Visits Re quested Visits Authorized [id number] Closed 09/11/2023 09/10/2024 1 1 Encounter Details Date Type Department Care Team (Latest Contact Info) Description 09/12/2023 11:20 AM CDT - 09/12/2023 11:59 PM CDT Hospital Encounter Department of Radiology, [facility], in [place], [place] [address] [place] [address] Ede Garcia M.D. [address] [place] [address] BRCA2 Gene Mutation Positive Discharge Disposition: Home or Self Care Social History Tobacco Use Types Packs/Day Years Used Date Smoking Tobacco: Never Assessed [facility] Utilities Answer Date Recorded In [...] your living situation today? I have a [facility] place to live 05/08/2023 Sex and Gender Information Value Date Recorded Sex Assigned at Female 05/08/2023 12:42 PM MANAGER GOVERNMENT Gender Identity Female 05/08/2023 12:42 PM MANAGER GOVERNMENT Sexual Orientation Straight 05/08/2023 12 :42 PM MANAGER GOVERNMENT documented as of this encounter Miscellaneous Notes * Result Encounter Note - Aracely Grissom M.D., M.S. - 09/14/2023 6:16 PM CDT I called Cydney to review her PET scan results. Overall, there is no evidence tubal/ovarian cancer or cancer spread. We reviewed the multiple inflammatory nonspecific changes as noted in the findings.Of note, she has had nasal congestion and a history of thyroid replacement, which may relate to the1st two findings. The activity in the abdominal wall musculature is likely a recent port site from her operation. I reviewed the node in the left groin and feel it is likely unrelated. In regards to her breast, she has upcoming diagnostic imaging. We reviewed her [place] path review, which confirms STIL. She should move forward with the plan for annual surveillance with CA 125 and ultrasound. She would like to do this here, and orders were placed. documented in this encounter Plan of Treatment Not on file documented as of this encounter Procedures Procedure Name Priority Date/Time Associated Diagnosis Comments PET CT SKULL TO THIGH RAD - Routine (most inpatients and all outpatients) 09/12/2023 2:03 PM CDT BRCA2 Gene Mutation Positive documented in this encounter Results * PET CT Skull to Thigh [...] RADIOPHARMACEUTICAL/MEDS: Route: intravenous fludeoxyglucose F 18 injection SENIOR LIVING (FDG F-18),14.95 millicurie TECHNIQUE: ??F-18 FDG PET/CT scan was performed from the vertex through the upper thighs with low dose, non-contrast, free-breathing CT images for attenuation correction and anatomic localization (AC/AL), with imaging beginning at approximately 60 minutes after radiotracer injection. ? COMPARISON: ??None. There is no other imaging of any kind in [facility]. INDICATION: ??BRCA2 gene mutation. Initial treatment strategy. [...] RADIOPHARMACEUTICAL/MEDS: Route: intravenous fludeoxyglucose F 18 injection SENIOR LIVING (FDG F-18),14.95 millicurie TECHNIQUE: F-18 FDG PET/CT scan was performed from the vertex through theupper thighs with low dose, non-contrast, free-breathing CT images forattenuation correction and anatomic localization (AC/AL), with imagingbeginning at approximately 60 minutes after radiotracer injection. COMPARISON: None. There is no other imaging of any kind in [facility]. INDICATION: BRCA2 gene mutation. Initial treatment strategy. The patient reports no recent vaccinations. FINDINGS: Physiologic or inflammatory uptake by the fossae of Rosenmuller on [id number] image 47. Probable physiologic or reactive asymmetric [...] see findings for details. Ede Garcia M.D. [facility] [place] PROCEDURES documented in this encounter Visit Diagnoses Diagnosis BRCA2 Gene Mutation Positive documented in this encounter Administered Medications Inactive Administered Medications - up to 3 most recent administrations Medication Order MAR Action Action Date Dose Rate Site fludeoxyglucose F 18 injection SENIOR LIVING (FDG F-18) 4.5-16.5 millicurie, intravenous, Once, On Sun09/12/23 at 1245, For 1 dose, Imaging Protocol Orders Given 09/12/2023 12:10 PM CDT 14.95 millicuries documented in this encounter
--- OUTSIDE RECORDS SUMMARY | 2023-09-25 08:37 | XMS_ITS | Encounter Summary ---
Author Organization [facility] Address [address] [place] [address] Care Team Providers Care Insurance Plan Specialist Name Role Phone Unavailable Primary Care Provider Unavailabl e Encounter Details Date Type Department Care Team (Late st Contact Info) Description 09/05/2023 4:20 PM CDT Lab RST RO LMP [address] [place] [phone] Ede Garcia M.D. [address] [place] [phone] BRCA2 Gene Mutation Positive Social History Tobacco Use Types Packs/Day Years Used Date Smoking Tobacco: Never Assessed [facility] Utilities Answer Date Recorded In [...] your living situation today? I have a [facility] place to live 05/08/2023 Sex and Gender Information Value Date Recorded Sex Assigned at Female 05/08/2023 12:42 PM PAINTER STRUCTURAL STEEL Gender Identity Female 05/08/2023 12:42 PM PAINTER STRUCTURAL STEEL Sexual Orientation Straight 05/08/2023 12 :42 PM PAINTER STRUCTURAL STEEL documented as of this encounter Plan of Treatment Not on file documented as of this encounter Procedures Procedure Name Priority Date/Time Associated Diagnosis Comments PATHOLOGY REVIEW OF OUTSIDE MATERIAL Routine 07/31/2023 12:00 AM CDT BRCA2 Gene Mutation Positive documented in this encounter Results * Pathology Review of Outside Material (07/31/2023 12:00 AM CDT) 09/11/2023 11:04 AM CDT DTL Participated in the Interpretation Robbin AndreS.-Pathology Fellow 09/11/2023 11:04 AM CDT DTL Report electronically signed by Sarahi Bunn M.D. I verify that I have examined all relevant slides/materials for the specimen(s) and rendered or confirmed the diagnosis. 09/11/2023 11:04 AM CDT DTL Material Received A. [id number]: Right/left ovary, left fallopian tube ? 10 stained slides 09/11/2023 11:04 AM CDT DTL Interpretation FINAL DIAGNOSIS Bilateral ovaries and left fallopian tube, salpingo-oophorectomy ([id number]; 07/31/2023) A. ??Right ovary, right oophorectomy: ??No [...] Ede Garcia M.D. LAB SURG PATH ORDERA [facility] [address] [place] [address], [facility] DTL [address] [place] [address] documented in this encounter Visit Diagnoses Diagnosis BRCA2 Gene Mutation Positive documented in this encounter
--- OUTSIDE RECORDS SUMMARY | 2023-09-25 08:37 | XMS_ITS | Encounter Summary ---
Author Organization [facility] Address [address] [place] [address] Care Team Providers Care Seismographer Name Role Phone Unavailable Primary Care Provider Unavailabl e Reason for Referral * MRI/CAT/PET Scan (Routine) - Closed Specialty Diagnoses / Procedures Referred By Alicja leal Referred To Contact Diagnoses BRCA2 Gene Mutation Positive Procedures PET CT Skull to Thigh FDG Ede Garcia M.D. [address] [place] [address] [facility] Referral ID Status Reason Start Date Expiration Date Visits Re quested Visits Authorized [id number] Closed 09/11/2023 09/10/2024 1 1 Reason for Visit * Appointment Request (Routine) - Closed Specialty Diagnoses / Procedures Referred By Alicja leal Referred To Contact Obstetrics and Gynecology Diagnoses Genetic Susceptibility To Breast Malignant Neoplasm Genetic Susceptibility To Other Malignant Neoplasm Lesion Fallopian Tube Griselda Thomas M.D. [address] [place] [address] Referral ID Status Reason Start Date Expiration Date Visits Re quested Visits Authorized [id number] Closed 08/21/2023 08/20/2024 1 1 Encounter Details Date Type Department Care Team (Latest Contact Info) Description 09/11/2023 9:15 AM CDT Comprehensive Visit Department of Obstetrics and Gynecology, Division of Gynecologic Oncology in [place], [place] [address] [place] [address] Ede Zaldivar M.D. [address] [place] [address] BRCA2 Gene Mutation Positive (Primary Dx) Social History Tobacco Use Types Packs/Day Years Used Date Smoking Tobacco: Never Assessed [facility] Utilities Answer Date Recorded In the [...] your living situation today? I have a [facility] place to live 05/08/2023 Sex and Gender Information Value Date Recorded Sex Assigned at Female 05/08/2023 12:42 PM DEPARTMENT EDITOR Gender Identity Female 05/08/2023 12:42 PM DEPARTMENT EDITOR Sexual Orientation Straight 05/08/2023 12 :42 PM DEPARTMENT EDITOR documented as of this encounter Last Filed [...] Mass Index 23.05 08/28/2023 8:49 AM CDT documented in this encounter Consult Notes * Ede Garcia M.D. - 09/11/2023 9:15 AM CDT SUBJECTIVE REFERRING PROVIDER Griselda Thomas M.D. REASON FOR VISIT Consult for evaluation and management recommendations HISTORY OF PRESENT CONDITION Chief complaint: Tubal lesion in a BRCA 2 carrier. Patient is a healthy 68-year-old who was recently discovered to be a BRCA 2 carrier after a family member was screened with a genetic study. Patient herself had no diagnosis of cancer previously. Sheis para 2 () and status post a vaginal hysterectomy in 2003 for benign indications in 1 tube wasremoved at that time of vaginal hysterectomy. She is making plans for prophylactic breast surgery. She has already had prophylactic surgery done by her clerk checker in July 31, 2023. This was a laparoscopic bilateral oophorectomy and left salpingectomy. There was a description in the op note which I have reviewed of adhesions to the peritoneum and tosome sigmoid epiploica but it does appear to be a complete resection although I will try to call the physician to confirm that. Otherwise patient is healthy up-to-date. Only other prior surgery was a ruptured appendix at age 20and orthopedic surgery. All outside path op notes and imaging have been reviewed for this consult The following portions of the patient's history were reviewed and updated as appropriate: allergies, current medications, family history, medical history, social history, surgical history and problemlist. FAMILY HISTORY Multiple members affected with BRCA2 mutation carrier status and, in retrospect several with diagnosis of ovarian cancer. REVIEW OF SYSTEMS A comprehensive review of systems was negative except as noted in HPI. OBJECTIVE VITAL SIGNS Body mass index is 23.05 kg/m??. ECOG status: 0 PHYSICAL EXAM Not repeated ASSESSMENT / PLAN Visit diagnosis: #1 BRCA2 Gene Mutation Positive [facility] pathology is pending. The outside pathology indicates a serous tubal intraepithelial lesion. Cytology was negative. Does not meet criteria for a STIC lesion. Patient has had no abdominal or systemic imaging since this diagnosis. Discussed with the patient current literature suggests the patient may have an increased risk of developing peritoneal malignancy down the road. Most of this data is based on patient's with serous tubal intraepithelial carcinoma, not serous tubal lesions. While data is weak most experts would recommend some type of surveillance which can be done annually with CA 125 and ultrasound at least for the 1st 5 years given the increased risk in patients with intraepithelial carcinoma. For intraepithelial lesions and P 53 signature is the risk is thought to be lower and we would not recommend restaging or adjuvant treatment, but I would recommend surveillance as outlined above. We discussed the uncertainty of the situation and the current lack of data supporting any adjuvant treatment in patients with this range of intraepithelial lesions. She has not had abdominal imaging and given that the scope was confined to the pelvis I would recommend PET-CT scan and this could be done at home. I will also reach out to her physician who performed the surgery to be sure that there was no chance that the adhesions resulted in any remaining tubalor ovarian tissue and if there was any doubt that then I would recommend re-exploration roboticallyfor evaluation of the pelvis and removal of anything that might represent adhesed power systems engineer tissue. I think this is unlikely given the description of the op note. BILLING Greater than 50% of the time spent counseling. TT 45 CT 30 Vicente Garcia M.D. * Romie Torres - 09/11/2023 9:15 AM CDT SUBJECTIVE REFERRING PROVIDER Griselda Thomas M.D. 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 Marlow is a 68 y.o., who presents in consultation at the request of Griselda Thomas M.D. 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 She was found to be BRCA2 mutation ([id number].[id number] (c.9004G>A)) positive earlier this year after her niece was identified with the same variant after a screening. In 2004, she had a vaginal hysterectomy with R salpingectomy for fibroids (unclear why they removedR fallopian tube). She had risk-reducing bilateral oophorectomy with L Salpingectomy in July this year. 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 She is here to discuss next steps. She has been discussing with surgeons in [place] for a risk-reducing mastectomy with reconstruction, pending scheduled based on this appointment. The following portions of the patient's history were reviewed and updated as appropriate: allergies, current medications, family history, medical history, social history, surgical history and problemlist. 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 She has about a 2 pack-year smokinghistory over 30 years ago. She drinks socially, about 2-3 drinks a week. She walks about 2 miles a day and lifts weights 2-3 times a week. Surgical History: Vaginal Hysterectomy with R Salpingectomy in 2004 Bilateral Oophorectomy with L Salpingectomy in July 2023 Appendectomy in 1975 L Meniscus Resurgery in 2023 Blepharoplasty MENSTRUAL HISTORY S/p hysterectomy. FAMILY HISTORY Breast, ovarian, colon, or uterine cancer-related family history includes Breast cancer (age of onset: 35 - 39) in her father's sister; Breast cancer (age of onset: 40 - 49) in her maternal cousin and maternal cousin; Breast cancer (age of onset: 50 - 59) in her mother's sister; Breast cancer (age of onset: 75 - 85) in her maternal grandmother; Ovarian cancer (age of onset: 70 - 85) in her paternal grandmother. REVIEW OF SYSTEMS underwent surgical resection with Dr. Thomas on 07/31/23. OBJECTIVE VITAL SIGNS Body mass index is 23.05 kg/m??. ECOG status: 0 PHYSICAL EXAM Deferred. DIAGNOSTICS N/A PATHOLOGY, LAST 30 DAYS Pathology reviewed from 07/31/23 surgery. IMAGING RESULTS, LAST 7 DAYS - IMPRESSION ONLY N/A since her surgery. ASSESSMENT / PLAN Visit diagnosis: #1 BRCA2 Gene Mutation Positive We discussed the significance of tubal intraepithelial lesions vs carcinoma with the patient and explained that there is currently no optimal screening for ovarian or peritoneal cancer. We also discussed her BRCA2 mutation and its implications with this diagnosis, including a possible greater than 10% chance that STIC may transform to peritoneal cancer, but that limited information is available currently. Given her current diagnosis of STIL, staging or adjuvant treatment is not indicated, but we will have [facility] to review. The patient had adhesions according to the op note from her August 02 surgery due to her previous abdominal operations. We will plan to discuss with her surgeon regarding the chance that some remnants may be left in the abdominal cavity. If there is a chance that there are remnants, then a reoperationrobotically would be recommended in order to evaluate the pelvis. Recommend a PET-CT as she has not had any imaging since her surgery. Recommended with an annual TVUS and CA125 for at least 5 years for monitoring. The patient would prefer to do this closer to home in [place], [place]. Plan: [facility] to review slides Discuss the July [address] Thomas We will reach out to the patient after pathology is finalized and the call PET-CT scan TVUS and CA125 annually for monitoring We answered all questions to the patient's apparent satisfaction. The patient was encouraged to reach out with any additional concerns or questions. Kaleigh Torres, MS4 [facility] Gynecologic Oncology documented in this encounter Plan of Treatment Not on file documented as of this encounter Results * PET CT Skull [...] uptake by the fossae of Rosenmuller on [id number] image 47. Probable physiologic or reactive asymmetric [...] see findings for details. Ede Garcia M.D. IMG NM PROCEDURES documented in this encounter Visit Diagnoses Diagnosis BRCA2 Gene Mutation Positive- Primary BRCA2 Gene Mutation Positive documented in this encounter
--- OUTSIDE RECORDS SUMMARY | 2023-09-25 08:37 | XMS_ITS | Encounter Summary ---
Author Organization [facility] Address [address] [place] [address] Care Team Providers Care Drop Wire Hanger Name Role Phone Unavailable Primary Care Provider Unavailabl e Encounter Details Date Type Department Care Team (Late st Contact Info) Description 08/23/2023 Clinical Communication Department of Obstetrics and Gynecology, Division of Gynecologic Oncology in [place], [place] [address] [place] [address] Prescheduling, Provider Social History Tobacco Use Types Packs/Day Years Used Date Smoking Tobacco: Never Assessed [facility] Utilities Answer Date Recorded In the [...] your living situation today? I have a [facility] place to live 05/08/2023 Sex and Gender Information Value Date Recorded Sex Assigned at Female 05/08/2023 12:42 PM TRANSLITERATOR Gender Identity Female 05/08/2023 12:42 PM TRANSLITERATOR Sexual Orientation Straight 05/08/2023 12 :42 PM TRANSLITERATOR documented as of this encounter Plan of Treatment Not on file documented as of this encounter Visit Diagnoses Not on filedocumented in this encounter
--- NOTE | 2023-09-25 08:45 | CRLHL7_ITS ---
For Patients: As a result of the Century Cures Act, medical imaging exams and procedure reports are released immediately into your electronic medical record. You may view this report before your referring provider. If you have questions, please contact your health care provider. DIGITAL DIAGNOSTIC LEFT MAMMOGRAM USING TOMOSYNTHESIS AND COMPUTER-AIDED DETECTION LEFT BREAST ULTRASOUND CLINICAL HISTORY: LEFT breast mass/asymmetry. COMPARISON: 09/03/2023, 11/15/2022. TECHNIQUE: Digital LEFT mammogram in two projections with computer-aided detection. Tomosynthesis was used in this interpretation. Real-time ultrasound imaging of LEFT breast with imaging documentation. BREAST COMPOSITION: The breast is heterogeneously dense, which may obscure small masses. FINDINGS: 3D true lateral and 3D spot compression MLO LEFT breast mammogram images submitted. Decreased conspicuity of previously noted asymmetric density. No suspicious mass or architectural distortion. No adenopathy or suspicious calcifications. Targeted LEFT breast ultrasound performed at 3 o`clock 4 cm from the nipple. Normal fibroglandular tissue is present. No fibrocystic change or mass. IMPRESSION: No suspicious findings. No evidence of malignancy. RECOMMENDATIONS: Routine bilateral screening mammography. Results and recommendations discussed with the patient. BI-RADS Category 2: Benign A lay language report of this examination will be provided to the patient. Dictated by Brian Robert MD @ 09/25/2023 12:32:17 PM /Dictated by: Brian Robert MD @ 09/25/2023 12:32:00 PM (Electronically Signed)
--- NOTE | 2023-09-25 09:15 | CRLHL7_ITS ---
For Patients: As a result of the Cures Act, medical imaging exams and procedure reports are released immediately into your electronic medical record. You may view this report before your referring provider. If you have questions, please contact your health care provider. PLEASE SEE DIGITAL DIAGNOSTIC LEFT MAMMOGRAM PERFORMED SAME DAY CRL:steve wilson/Dictated by: Brian Robert MD @ 09/25/2023 12:32:00 PM (Electronically Signed)
== END 2023-09-25 08:34 | disposition home or self-care (01) ==
PROVIDERS: PCP Internal Medicine; Visit Provider Obstetrics & Gynecology
DX: N63.20 Unspecified lump in the left breast, unspecified quadrant (principal); R92.2 Inconclusive mammogram
CPT/HCPCS: 76642; 77065; G0279

== ENCOUNTER 2024-02-11 09:20 | Outpatient (CLI) | payer MEDICARE, BC, SELFPAY ==
--- OUTSIDE RECORDS SUMMARY | 2024-02-11 09:23 | XMS_ITS | Encounter Summary ---
Author Organization [facility] Address [address] [place] [address] Care Team Providers Care Hvac/R Instructor Name Role Phone None, Pcp Primary Care Provider Unavailabl e Encounter Details Date Type Department Care Team (Late st Contact Info) Description 12/13/2023 Telephone [facility] General Surgery [address] [place] [phone] Efraín [place] [address] [place] [phone] Social History Tobacco Use Types Packs/Day Years Used Date Smoking Tobacco: Former Cigarettes Smokeless Tobacco: Never Alcohol Use Standard Drinks/Week Comments Yes 0 (1 standard drink = 0.6 oz pur e alcohol) 1-2 per week Comments Unknown Sex and Gender Information Value Date Recorded Sex Assigned at Not on file Legal Sex Female 11:19 AM CDT Gender Identity Not on file Sexual Orientation Not on file documented as of this encounter Miscellaneous Notes * Telephone Encounter - Sahara Nick - 12/13/2023 2:02 PM CDT Patient has been rescheduled to 03/04/24 for post op. * Telephone Encounter - Jeanne Toribio BSN - 12/13/2023 1:36 PM CDT Please call patient to reschedule her post-op appt. New DOS is 02/27/[address] Rubio for b/l mastectomy. documented in this encounter Plan of Treatment Upcoming Encounters Date Type Department Care Team (Latest Contact Info) Description 02/20/2024 9:30 AM MANAGER SUPPLIER Hospital Encounter [facility] Operating Room [address] [place] [address] Efraín Rubio MD [address] [place] [phone] 02/20/2024 9:30 AM MANAGER SUPPLIER - 02/20/2024 12:10 PM MANAGER SUPPLIER Surgery [facility] Operating Room [address] [place] [address] Efraín Rubio MD [address] [place] [phone] MASTECTOMY BILATERAL risk reducing 02/28/2024 9:10 AM MANAGER SUPPLIER Office Visit [facility] General Surgery [address] [place] [phone] Efraín Rubio MD [address] [place] [phone] Scheduled Procedures Name Priority Associated Diagnoses Date/Ti me MASTECTOMY BILATERAL BRCA2 gene mutation positive Aftercare postmastectomy for breast reconstruction 02/20/2024 9:30 AM MANAGER SUPPLIER documented as of this encounter Visit Diagnoses Not on filedocumented in this encounter Care Teams Hvac/R Instructor Relationship Specialty Start Date End Date None, Pcp [address] [place] [phone] PCP - General Teacher Of The Deaf/Hard Of Hearing 08/27/23 documented as of this encounter
--- OUTSIDE RECORDS SUMMARY | 2024-02-11 09:23 | XMS_ITS | Encounter Summary ---
Author Organization [facility] er Address [address] [place] [address] Care Team Providers Care Facilities Engineering Manager Name Role Phone None, Pcp Primary Care Provider Unavailabl e Encounter Details Date Type Department Care Team (Late st Contact Info) Description 01/11/[address] [facility] Plastic Surgery [address] [place] [address] Arminda Putnam BSN [address] [place] [phone] Social History Tobacco Use Types Packs/Day Years [...] encounter Miscellaneous Notes * Telephone Encounter - Arminda Putnam BSN - 01/11/2024 3:27 PM CDT Talked with patient about different reconstruction options we offer at [facility] such as a latissimus dorsi flap or assistant professor of biochemistry with implant reconstruction. She is considering not having reconstruction and just doing the mastectomy. She will contact us and Gen surg once she makes a decision. documented in this encounter Plan of Treatment Upcoming Encounters Date Type Department Care Team (Latest Contact Info) Description 02/20/2024 9:30 AM CEMENT RAILROAD CAR LOADER Hospital Encounter [facility] Hospital Operating Room [address] [place] [address] Efraín Rubio MD [address] [place] [phone] 02/20/2024 9:30 AM CEMENT RAILROAD CAR LOADER - 02/20/2024 12:10 PM CEMENT RAILROAD CAR LOADER Surgery [facility] Operating Room [address] [place] [address] E[place]ín [place] [address] [place] [phone] MASTECTOMY BILATERAL risk reducing 02/28/2024 9:10 AM CEMENT RAILROAD CAR LOADER Office Visit [facility] General Surgery [address] [place] [phone] E[place]ín [place] [address] [place] [phone] Scheduled Procedures Name Priority Associated Diagnoses Date/Ti me MASTECTOMY BILATERAL BRCA2 gene mutation positive Aftercare postmastectomy for breast reconstruction 02/20/2024 9:30 AM CEMENT RAILROAD CAR LOADER documented as of this encounter Visit Diagnoses Not on filedocumented in this encounter Care Teams Facilities Engineering Manager Relationship Specialty Start Date End Date None, Pcp [address] [place] [phone] PCP - General Customs Manager 08/27/23 documented as of this encounter
--- OUTSIDE RECORDS SUMMARY | 2024-02-11 09:23 | XMS_ITS | Encounter Summary ---
Author Organization [facility] er Address [address] [place] [address] Care Team Providers Care Small Brake Form Operator Name Role Phone None, Pcp Primary Care Provider Unavailabl e Encounter Details Date Type Department Care Team (Late st Contact Info) Description 02/04/2024 8:00 AM POOL PLAYER Clinical Support SE Anesthesia [address] [place] [address] Social History Tobacco Use Types Packs/Day Years [...] on file documented as of this encounter OR Notes * Perioperative Nursing Note - Katie Killian RN - 02/04/2024 8:00 AM POOL PLAYER Surgery: mastectomy bilateral (preventative) Surgeon: Ramiro Lead Technical Architect: Estimated body mass index is 23.16 kg/m?? as calculated from the following: Height as of 10/30/23: 1.626 m (5' 4.02). Weight as of 10/30/23: 61.2 kg (135 lb). Pertinent Medical History: family hx of breast cancer Dirk H+P Heather Torres Diabetic: no If yes: Insulin Dependent: No Oral Agents: No GLP-1 Agonists: No If yes: - Glucose Checks: No - Recent A1C: No Recent TSH: No Metabolic: denies Hematologic: denies Cardiac: denies Pulmonary: hx of laryngeal spasm, not related to surgery, improving. - CPAP: No - Inhaler: no Anesthesia/Transfusion: Prior Anesthesia Reaction: Yes, describe: severe anxiety post op (like wanting to crawl off the gurney) Pertinent Family History: none Social History reports current alcohol use. No reports that she has quit smoking. Her smoking use included cigarettes. She has never used smokeless tobacco. reports no history of drug use. : N/A Test Indicated: N/A Procedural Note: Verified that patient has a 24-hour support person. Advised patient to follow provider instruction regarding medication management prior to procedure. Reviewed NPO/surgical guidelines, where to check in, shower/clean skin, and that nursing will call with arrival time. Covid screen complete; patient currently has nasal congestiong and a dry infrequent cough. She has tested negative for Covid. She will be seeing PCP 02-10. Instructed patient to contact surgical team if not markedly improved by date of H & P. Patient verbalized understanding of all instructions, encouraged to call Pre-op Nursing with questions. PLAYER documented in this encounter Plan of Treatment Upcoming Encounters Date Type Department Care Team (Latest Contact Info) Description 02/20/2024 9:30 AM POOL PLAYER Hospital Encounter [facility] Operating Room [address] [place] [address] Efraín Rubio MD [address] [place] [phone] 02/20/2024 9:30 AM POOL PLAYER - 02/20/2024 12:10 PM POOL PLAYER Surgery [facility] Operating Room [address] [place] [address] Efraín Rubio MD [address] [place] [phone] MASTECTOMY BILATERAL risk reducing 02/28/2024 9:10 AM POOL PLAYER Office Visit [facility] General Surgery [address] [place] [address] Efraín Rubio MD [address] [place] [phone] Scheduled Procedures Name Priority Associated Diagnoses Date/Ti me MASTECTOMY BILATERAL BRCA2 gene mutation positive Aftercare postmastectomy for breast reconstruction 02/20/2024 9:30 AM POOL PLAYER documented as of this encounter Visit Diagnoses Not on filedocumented in this encounter Care Teams Small Brake Form Operator Relationship Specialty Start Date End Date None, Pcp [address] [facility] [place] [address] PCP - General Core Setter 08/27/23 documented as of this encounter
--- OUTSIDE RECORDS SUMMARY | 2024-02-11 09:23 | XMS_ITS | Clinical Summary ---
Author Organization [facility] Address [address] [place] [address] Care Team Providers Care Business School Dean Name Role Phone Unavailable Primary Care Provider Unavailabl e Source Comments Patient records contain information from all sites at [facility]. For routine questions regarding patient records, call [phone] during business hours, M-F 8:00 AM - 5:00 PM Central Time. Record requests for emergency care only can be directed to [phone] at any time.[facility] Active Problems Problem Noted Date Diagnosed Date BRCA2 Gene Mutation Positive 06/15/2023 Overview (06/15/2023): Germline genetic testing in 2023; 19-gene custom panel from [facility]. One heterozygous pathogenic variant found in the BRCA2 gene, specifically named [id number] (c.[id number]). Family History Medical History Relation Name Comments [...] cancer Paternal Cousin Prostate cancer Paternal Grandfather Coin Ovarian cancer Paternal Grandmother Liana Uterine fibroid Sister Nyla Relation Name Status Comments Brother 1 Alive Brother 2 Alive Daughter 1 Alive Daughter 2 Alive Father Srinivas (Age 78) d. 2010 Father's Brother Ross Alive Father's Sister 1 Paola (Age 65) [...] Years Used Date Smoking Tobacco: Never Assessed [facility] Utilities Answer Date Recorded In the past 12 months has e [facility], oil, or water [employer] threatened to shut off services in your [...] living? No 05/08/2023 Nutrition Answer Date Recorded On average, how many serving s of [...] your living situation today? I have a [facility] place to live 05/08/2023 Comments Unknown Sex and Gender Information Value Date Recorded Sex Assigned at Female 05/08/2023 12:42 PM ROTARY DRIER OPERATOR Legal Sex Female 7:46 AM ROTARY DRIER OPERATOR Gender Identity Female 05/08/2023 12:42 PM ROTARY DRIER OPERATOR Sexual Orientation Straight 05/08/2023 12 :42 PM ROTARY DRIER OPERATOR Last Filed Vital Signs Vital Sign [...] Date Last Done Comments Bone Density Scan (Osteoporosis Screen) [address] Colonography 1955 Cologuard 1957 Colonoscopy 1957 Colorectal Cancer Screening 1957 FIT 1957 Fasting Glucose for Diabetes Screening 1957 Hepatitis C Screening 1957 Mammogram 1957 Depression Screening (Annual PHQ-2) 03/12/2023 Fall Risk Screen (Annual) 03/12/2023 COVID-19 Vaccine (2023- season) 2023 12/08/2022, 07/11/2022, 02/22/2022, Additional history exists Influenza Vaccine (#1) 2023 , 12/07/2021, 11/10/2020, Additional history exists DTaP,Tdap,and Td Vaccines (3 - Td or Tdap) 11/21/2032 11/21/2022, 04/03/2012 Zoster Vaccines Completed 02/20/2019, 12/02/2018 Pneumococcal vaccine (65+ years) Completed 01/01/2023, 01/30/2014 IPV Vaccines Aged Out No longer eligi ble based on patient's age to complete this topic Insurance MEDICARE [facility] [[email or web address]]
--- OUTSIDE RECORDS SUMMARY | 2024-02-11 09:23 | XMS_ITS ---
Author Organization [facility] Address [address] [place] [address] Care Team Providers Care Mining Consultant Name Role Phone Unavailable Unavailable Unavailable Surgery Details Not on file Complications Check Surgery Details section. Procedure Estimated Blood Loss Check Surgery Details section. Procedure Findings Check Surgery Details section. Procedure Specimens Taken Check Surgery Details section.
--- OUTSIDE RECORDS SUMMARY | 2024-02-11 09:23 | XMS_ITS | Clinical Summary ---
Author Organization [facility] er Address [address] [place] [address] Care Team Providers Care Visual Journalist Name Role Phone None, Pcp Primary Care Provider Unavailabl e Allergies No known active allergies Medications alendronate (FOSAMAX) 70 MG tablet Take 1 [...] mouth 1 (one) time each day Active alendronate (FOSAMAX) 70 MG/75ML solution Take 75 mL (70 mg total) by mouth 02/27/2023 Active Active Problems Problem Noted Date Diagnosed Date BRCA2 gene mutation positive 08/27/2023 Encounters Date Type Department Care Team Description 02/04/2024 8:00 AM SCRUB WHEEL OPERATOR Clinical Support SE Anesthesia [address] [place] [address] 01/31/2024 1:50 PM SCRUB WHEEL OPERATOR Office Visit [facility] General Surgery [address] [place] [address] Efraín Rubio MD BRCA2 gene mutation positive (Primary Dx) 01/16/2024 Telephone [facility] Plastic Surgery [address] [place] [address] Jerry Max RN 01/11/2024 Telephone [facility] Plastic Surgery [address] [place] [address] Arminda Putnam BSN 12/13/2023 Telephone [facility] General Surgery [address] [place] [address] Efraín Rubio MD 11/14/2023 Orders Only [facility] General Surgery [address] [place] [address] Efraín Rubio MD from Last 3 Months Family History Medical History Relation Comments Cancer Brother Stroke Brother Cancer Cousin Cancer Father Cancer Maternal Grandfather Heart failure Maternal Grandfather Osteoarthritis Mother Cancer Mother's Sister Relation Status Comments Brother Cousin Father Maternal Grandfather Mother Mother's Sister Social History Tobacco Use Types Packs/Day Years Used Date Smoking Tobacco: Former Cigarettes Smokeless Tobacco: Never Tobacco Cessation:Counseling Given: Not Answered Alcohol Use Standard Drinks/Week Comments Yes 0 (1 standard drink = 0.6 oz pur e alcohol) 1-2 per week Comments Unknown Sex and Gender Information Value Date Recorded Sex Assigned at Not on file Legal Sex Female 11:19 AM CDT Gender Identity Not on file Sexual Orientation Not on file Last Filed Vital Signs Vital Sign Reading Time Taken Comments Blood Pressure 140/76 01/31/2024 1:36 PM SCRUB WHEEL OPERATOR Pulse 86 01/31/2024 1:36 PM SCRUB WHEEL OPERATOR Temperature 36.6 C (97.9 F) 01/31/2024 1:36 PM SCRUB WHEEL OPERATOR Respiratory Rate 16 01/31/2024 1:36 PM SCRUB WHEEL OPERATOR Oxygen Saturation 99% 01/31/2024 1:36 PM SCRUB WHEEL OPERATOR Inhaled Oxygen Concentration - - Weight 62.6 kg (138 lb) 01/31/2024 1:36 PM SCRUB WHEEL OPERATOR Height 162.6 cm (5' 4.02) 01/31/2024 1:36 PM CS T Body Mass Index 23.68 01/31/2024 1:36 PM SCRUB WHEEL OPERATOR Plan of Treatment Upcoming Encounters Date Type Department Care Team (Latest Contact Info) Description 02/20/2024 9:30 AM SCRUB WHEEL OPERATOR Hospital Encounter [facility] Operating Room [address] [place] [place] [address] Efraín Rubio MD [address] [place] [phone] 02/20/2024 9:30 AM SCRUB WHEEL OPERATOR - 02/20/2024 12:10 PM SCRUB WHEEL OPERATOR Surgery [facility] Operating Room [address] [place] [address] Efraín [place] [address] [place] [phone] MASTECTOMY BILATERAL risk reducing 02/28/2024 9:10 AM SCRUB WHEEL OPERATOR Office Visit [facility] General Surgery [address] [place] [address] Efraín [place] [address] [place] [phone] Scheduled Procedures Name Priority Associated Diagnoses Date/Ti me MASTECTOMY BILATERAL BRCA2 gene mutation positive Aftercare postmastectomy for breast reconstruction 02/20/2024 9:30 AM SCRUB WHEEL OPERATOR Health Maintenance Due Date Last Done Comments Bone Density Scan 1957 CT Colonography 1957 Colonoscopy 1957 Colorectal Cancer Screening 1957 FIT-DNA 1957 Mammogram 1957 Sigmoidoscopy 1957 iFOBT 1957 Fall Risk Performed 05/17/1975 Medicare Annual Wellness Visit (AWV) 05/17/1975 Pneumococcal Vaccine: 65+ Years (1 of 1 - PCV) 2022 DTaP,Tdap,and Td Vaccines (3 - Td or Tdap) 11/21/2032 11/21/2022, 04/03/2012 Zoster Vaccines Completed 02/20/2019, 12/02/2018 Influenza Vaccine Completed 11/15/2023, , 11/10/2020, Additional history exists COVID-19 Vaccine Completed 12/05/2023, , 07/20/2021, Additional history exists HPV Vaccines Aged Out No longer eligi ble based on patient's age to complete this topic Insurance MEDICARE [facility] Care Teams Visual Journalist Relationship Specialty Start Date End Date None, Pcp [address] [place], [place] [address] [phone] PCP - General Information Systems Security Specialist 08/27/23
--- OUTSIDE RECORDS SUMMARY | 2024-02-11 09:23 | XMS_ITS | Encounter Summary ---
Author Organization [facility] er Address [address] [place] [address] Care Team Providers Care Mica Machine Operator Name Role Phone None, Pcp Primary Care Provider Unavailabl e Reason for Visit * Reason Comments Follow-up Encounter Details Date Type Department Care Team ([facility] st Contact Info) Description 01/31/2024 1:50 PM SPOT MAN Office Visit [facility] General Surgery [address] [place] [address] Efraín Rubio MD [address] [place] [phone] BRCA2 gene mutation positive (Primary Dx) [...] Comments Blood Pressure 140/76 01/31/2024 1:36 PM SPOT MAN Pulse 86 01/31/2024 1:36 PM SPOT MAN Temperature 36.6 C (97.9 F) 01/31/2024 1:36 PM SPOT MAN Respiratory Rate 16 01/31/2024 1:36 PM SPOT MAN Oxygen Saturation 99% 01/31/2024 1:36 PM SPOT MAN Inhaled Oxygen Concentration - - Weight 62.6 kg (138 lb) 01/31/2024 1:36 PM SPOT MAN Height 162.6 cm (5' 4.02) 01/31/2024 1:36 PM CS T Body Mass Index 23.68 01/31/2024 1:36 PM SPOT MAN documented in this encounter Patient Instructions * Patient Instructions* Efraín Rubio MD - 01/31/2024 1:50 PM SPOT MAN Plan surgery per schedule MAN documented in this encounter Progress Notes * Efraín Rubio MD - 01/31/2024 1:50 PM CST Established Patient Visit Chief Complaint Patient presents with Follow-up CONSULTING PHYSICIAN: Dr Danisha Torres HPI:Cydney Marlow is an 68 y.o. female. Patient presents back this afternoon. She is known to me from her prior visit from August 2023 and October 2023. Patient was found to be BRCA2 gene positive and has decided to proceed with a prescription testing bilateral mastectomy. Initially had a prior discussion she was contemplating a breast reconstruction. Her sister underwent the same procedure here with bilateral risk reducing mastectomy and reconstruction and has been doing well. In the interim the patient is given much thought to it and wants to proceed with a mastectomy without reconstruction. She is concerned about any foreign body. Patient denies any new breast complaints such as pain no nipple discharge she is on no hormone replacement therapy. She has been 2 different times. No prior breast biopsies. She has completed her preoperative evaluation as well as mammogram and the ultrasound at the [facility] which showed unremarkable. Review of Systems No fever no chills no shortness of breath no chest pain no cough Patient Active Problem List Diagnosis BRCA2 gene [...] Social History Narrative Not on file Social Drivers of Health Financial Resource Strain: Not on file Food Insecurity: No Food Insecurity (05/08/2023) Received from [facility] Hunger Vital Sign Worried About Running Out of Food in the Last Year: Never true Ran Out of Food in the Last Year: Never true Transportation Needs: No Transportation Needs (05/08/2023) Received from [facility] PRAPARE - Transportation Lack of Transportation (Medical): No Lack of Transportation (Non-Medical): No Physical Activity: Sufficiently Active (05/08/2023) Received from [facility] Exercise Vital Sign Days of Exercise per Week: 4 days Minutes of Exercise per Session: 40 min Stress: Not on file Social Connections: Not on file Intimate Partner Violence: Not on file Housing Stability: Low Risk (05/08/2023) Received from [facility] Housing Stability What is your living situation today?: I have a steady place to live No Known Allergies Current Outpatient Medications: alendronate (FOSAMAX) 70 MG tablet, Take 1 tablet (70 mg total) by mouth every 7 (seven) days, Disp: , Rfl: calcium citrate-vitamin D 157.5-125 mg-unit, Take by mouth 1 (one) time each day, Disp: , Rfl: pantoprazole (PROTONIX) 40 MG [...] day in the morning, Disp: , Rfl: alendronate (FOSAMAX) 70 MG/75ML solution, Take 75 mL (70 mg total) by mouth (Patient not taking: Reported on 01/31/2024), Disp: , Rfl: OBJECTIVE: Visit Vitals BP 140/76 Pulse 86 Temp 36.6 ??C (97.9 ??F) (Temporal) Resp 16 SpO2: 99 % Physical Examination: General: Patient is well-appearing Neuro: Alert and oriented to time, space, and person, no obvious deficits HEENT: Head atraumatic, normocephalic, anicteric sclera Respiratory: Non-labored breathing Breast examination This was a chaperoned exam. Bilateral skin and nipple complex are normal. No dominant masses in either breast. Lymphatic examination No lymphadenopathy in either axilla Skin/Extremities: Non-cyanotic, well-perfused Psychiatric: Normal affect Imaging: Mammogram from August and September 2023 at [facility] was unremarkable ASSESSMENT: 1. BRCA2 positive gene mutation 2. Family history of breast cancer PLAN: Discussed the finding with the patient once again. Discussed the role of risk reducing mastectomy and the fact that the risk reduction is not 100% but close to 90%. Patient is quite clear about her decision not to proceed with reconstruction. Discussed the aims, the goals, the risk, the alternatives and the complication not limited to infection, bleeding, the need for second intervention if final pathology shows a new abnormality. The need for drain placement and drain management was also discussed with the patient. Issues regarding dogear was also discussed with the patient in details. This should be a 1 night stay in the hospital. She will need a preoperative clearance for the above surgical procedure and the date of surgery would be decided pending the above. Multiple questions were answered. Efraín Rubio MD MAN documented in this encounter Plan of Treatment Upcoming Encounters Date Type Department Care Team (Latest Contact Info) Description 02/20/2024 9:30 AM SPOT MAN Hospital Encounter [facility] Operating Room [address] [place] [address] Efraín Rubio MD [address] [place] [phone] 02/20/2024 9:30 AM SPOT MAN - 02/20/2024 12:10 PM SPOT MAN Surgery [facility] Operating Room [address] [place] [address] Efraín Rubio MD [address] [place] [phone] MASTECTOMY BILATERAL risk reducing 02/28/2024 9:10 AM SPOT MAN Office Visit [facility] General Surgery [address] [place] [address] Efraín Rubio MD [address] [place] [phone] Scheduled Procedures Name Priority Associated Diagnoses Date/Ti me MASTECTOMY BILATERAL BRCA2 gene mutation positive Aftercare postmastectomy for breast reconstruction 02/20/2024 9:30 AM SPOT MAN documented as of this encounter Visit Diagnoses Diagnosis BRCA2 gene mutation positive- Primary BRCA2 gene mutation positive Aftercare postmastectomy for breast reconstruction Encounter for breast reconstruction following mastectomy documented in this encounter Care Teams Mica Machine Operator Relationship Specialty Start Date End Date None, Pcp [address] [facility] [place] [phone] PCP - General Prosthetics Technician 08/27/23 documented as of this encounter
--- OUTSIDE RECORDS SUMMARY | 2024-02-11 09:23 | XMS_ITS | Encounter Summary ---
Author Organization [facility] er Address [address] [place] [address] Care Team Providers Care Magnet Placer Name Role Phone None, Pcp Primary Care Provider Unavailabl e Encounter Details Date Type Department Care Team ( Contact Info) Description 01/16/2024 Telephone [facility] Plastic Surgery [address] [place] [address] Jerry Max RN [address] [place] [phone] Social History Tobacco Use Types Packs/Day [...] encounter Miscellaneous Notes * Telephone Encounter - Jerry Max RN - 01/16/2024 9:53 AM CST Nurse General Duty contacted patient to confirm patient will proceed with mastectomy only with Dr. Rubio and does not desire reconstruction at this time. Nurse General Duty wished patient well and stated [facility] Plastic Surgery Department is always available to her should she have needs in the future. S CHASER documented in this encounter Plan of Treatment Upcoming Encounters Date Type Department Care Team (Latest Contact Info) Description 02/20/2024 9:30 AM PARTS CHASER Hospital Encounter [facility] Hospital Operating Room [address] [place] [address] Efraín [place] [address] [place] [phone] 02/20/2024 9:30 AM PARTS CHASER - 02/20/2024 12:10 PM PARTS CHASER Surgery [facility] Operating Room [address] [place] [address] Efraín Rubio MD [address] [place] [phone] MASTECTOMY BILATERAL risk reducing 02/28/2024 9:10 AM PARTS CHASER Office Visit [facility] General Surgery [address] [place] [address] Efraín Rubio MD [address] [place] [phone] Scheduled Procedures Name Priority Associated Diagnoses Date/Ti me MASTECTOMY BILATERAL BRCA2 gene mutation positive Aftercare postmastectomy for breast reconstruction 02/20/2024 9:30 AM PARTS CHASER documented as of this encounter Visit Diagnoses Not on filedocumented in this encounter Care Teams Magnet Placer Relationship Specialty Start Date End Date None, Pcp [address] [place] [phone] PCP - General [place] Aide 08/27/23 documented as of this encounter
--- OUTSIDE RECORDS SUMMARY | 2024-02-11 09:23 | XMS_ITS | Encounter Summary ---
Author Organization [facility] er Address [address] [place] [address] Care Team Providers Care Finish Patcher Name Role Phone None, Pcp Primary Care Provider Unavailabl e Encounter Details Date Type Department Care Team (Late st Contact Info) Description 11/14/2023 Orders Only [facility] General Surgery [address] [place] [address] Efraín Rubio MD [address] [place] [address] [phone] Social History Tobacco Use Types Packs/Day Years [...] on file documented as of this encounter Plan of Treatment Upcoming Encounters Date Type Department Care Team (Latest Contact Info) Description 02/20/2024 9:30 AM COMPUTER FORENSICS EXAMINER Hospital Encounter [facility] Operating Room [address] [place] [address] Efraín Ruboi MD [address] [place] [address] [phone] 02/20/2024 9:30 AM COMPUTER FORENSICS EXAMINER - 02/20/2024 12:10 PM COMPUTER FORENSICS EXAMINER Surgery [facility] Operating Room [address] [place] [address] Efraín Rubio MD [address] [place] [phone] MASTECTOMY BILATERAL risk reducing 02/28/2024 9:10 AM COMPUTER FORENSICS EXAMINER Office Visit [facility] General Surgery [address] [place] [address] Efraín Rubio MD [address] [place] [phone] Scheduled Procedures Name Priority Associated Diagnoses Date/Ti me MASTECTOMY BILATERAL BRCA2 gene mutation positive Aftercare postmastectomy for breast reconstruction 02/20/2024 9:30 AM COMPUTER FORENSICS EXAMINER documented as of this encounter Visit Diagnoses Not on filedocumented in this encounter Care Teams Finish Patcher Relationship Specialty Start Date End Date None, Pcp [address] [place] [phone] PCP - General Immigration Case Worker 08/27/23 documented as of this encounter
--- OUTSIDE RECORDS SUMMARY | 2024-02-11 09:23 | XMS_ITS | Encounter Summary ---
Author Organization [facility] er Address [address] [place] [id number] Care Team Providers Care Nuclear Cardiology Technologist Name Role Phone None, Pcp Primary Care Provider Unavailabl e Reason for Visit * Reason Onset Date Comments Schedule mastectomy/reconstruction 11/07/2023 Encounter Details Date Type Department Care Team (Late st Contact Info) Description 11/07/2023 Telephone [facility] General Surgery [address] [place] [address] [phone] Efraín [place] [address] [place] [phone] Schedule mastectomy/reconstructi on Social History Tobacco Use Types Packs/Day Years [...] Telephone Encounter - Karma Whittington RN - 11/14/2023 4:32 PM CDT Patient was called and advised to have PCP at [place] order CBC and EKG and have all results andpreop appointment faxed back to [facility]. * Telephone Encounter - Ella Robin RN - 11/07/2023 4:35 PM CDT Thank you. I will follow up with her and set her up tomorrow. * Telephone Encounter - Lary Almeida - 11/07/2023 1:55 PM CDT Patient has been scheduled for pre-op nurse and post op appointments. Thank you! * Telephone Encounter - Karma Whittington RN - 11/07/2023 1:49 PM CDT Mastectomy / reconstruction scheduled for 01/02/24. Patient plans to have preop H & P at her clinic in [place]. She will need a CBC and EKG ordered for [facility]- her PCP is Dr. Tresa Perry. Call transferred to PSR to schedule preop nurse and postop with Dr. Rubio. Patient is advised Plastics department will reach out to patient to schedule all their preop and postop appointments. documented in this encounter Plan of Treatment Upcoming Encounters Date Type Department Care Team (Latest Contact Info) Description 02/20/2024 9:30 AM SENIOR SOFTWARE SYSTEMS ENGINEER Hospital Encounter [facility] Operating Room [address] [place] [id number] Efraín Rubio MD [address] [place] [phone] 02/20/2024 9:30 AM SENIOR SOFTWARE SYSTEMS ENGINEER - 02/20/2024 12:10 PM SENIOR SOFTWARE SYSTEMS ENGINEER Surgery [facility] Operating Room [address] [place] [id number] Efraín Rubio MD [address] [place] [phone] MASTECTOMY BILATERAL risk reducing 02/28/2024 9:10 AM SENIOR SOFTWARE SYSTEMS ENGINEER Office Visit [facility] General Surgery [address] [place] [phone] Efraín Rubio MD [address] [place] [phone] Scheduled Procedures Name Priority Associated Diagnoses Date/Ti me MASTECTOMY BILATERAL BRCA2 gene mutation positive Aftercare postmastectomy for breast reconstruction 02/20/2024 9:30 AM SENIOR SOFTWARE SYSTEMS ENGINEER documented as of this encounter Visit Diagnoses Not on filedocumented in this encounter Care Teams Nuclear Cardiology Technologist Relationship Specialty Start Date End Date None, Pcp [address] [facility] [place] [phone] PCP - General Addiction Medicine Physician 08/27/23 documented as of this encounter
--- OUTSIDE RECORDS SUMMARY | 2024-02-11 09:23 | XMS_ITS | Referral Summary ---
Author Organization [facility] Address [address] [place] [id number] Care Team Providers Care Carton Marker Machine Name Role Phone Unavailable Primary Care Provider Unavailabl e Source Comments Patient records contain information from all sites at [facility]. For routine questions regarding patient records, call [phone] during business hours, M-F 8:00 AM - 5:00 PM Central Time. Record requests for emergency care only can be directed to [phone] at any time.[facility] Active Problems Problem Noted Date Diagnosed Date BRCA2 Gene Mutation Positive 06/15/2023 Overview (06/15/2023): Germline genetic testing in 2023; 19-gene custom panel from [facility]. One heterozygous pathogenic variant found in the BRCA2 gene, specifically named [id number] ([id number]). Social History Tobacco Use Types Packs/Day Years Used Date Smoking Tobacco: Never Assessed [facility] Utilities Answer Date Recorded In the past 12 months has [employer], oil, or water xaitment threatened to shut off services in your [...] your living situation today? [facility] place to live 05/08/2023 Comments Unknown Sex and Gender Information Value Date Recorded Sex Assigned at Female 05/08/2023 12:42 PM CARDIOVASCULAR TECH Legal Sex Female 7:46 AM CARDIOVASCULAR TECH Gender Identity Female 05/08/2023 12:42 PM CARDIOVASCULAR TECH Sexual Orientation Straight 05/08/2023 12 :42 PM CARDIOVASCULAR TECH Last Filed Vital Signs Vital Sign Reading [...] CDT Plan of Treatment Not on file Insurance HUONG Bello [id number] MEDICARE [facility]
== END 2024-02-11 09:21 | disposition home or self-care (01) ==
PROVIDERS: PCP Internal Medicine; Visit Provider Internal Medicine
DX: Z01.818 Encounter for other preprocedural examination (principal); E03.8 Other specified hypothyroidism; M81.0 Age-related osteoporosis without current pathological fracture; Z13.1 Encounter for screening for diabetes mellitus
CPT/HCPCS: 82306; 82947; 84443